=== PATIENT | female | born 1990 | race Caucasian/White ===

== ENCOUNTER 2023-08-21 09:44 | Inpatient (IN) | payer MEDICAID, SELFPAY ==
[2023-08-21] VITALS (9 sets, daily range): BP systolic 79–135; BP diastolic 46–66; PULSE 61–95; RESP 12–18; TEMP 36.7–36.9; O2SAT 96–100; BMI 18.4
--- NOTE | ~2023-08-21 | US_ITS ---
EXAMINATION: US RETROPERITONEAL LIMITED (RENAL ONLY) CLINICAL INFORMATION: Acute kidney injury. COMPARISON: None available. TECHNIQUE: Real-time imaging of the kidneys. FINDINGS: RIGHT KIDNEY: 10.3 x 4.9 x 5.6 cm (SAG x AP x TRV). The kidney is normal in size, contour, and echogenicity. Renal cortical thickness is normal. No calculi or focal parenchymal lesions. No hydronephrosis. LEFT KIDNEY: 10.4 x 5.9 x 4.9 cm (SAG x AP x TRV). The kidney is normal in size, contour, and echogenicity. Renal cortical thickness is normal. No calculi or focal parenchymal lesions. No hydronephrosis. US/US renal BI IMPRESSION: Unremarkable renal ultrasound..
--- NOTE | ~2023-08-21 | CT_ITS ---
EXAMINATION: CT HEAD AND FACIAL BONES WITHOUT CONTRAST CLINICAL INFORMATION: Fall head injury COMPARISON: None TECHNIQUE: Contiguous axial imaging was performed from the skull base to vertex and facial bones without intravenous administration of contrast. This CT examination was performed using dose optimization techniques as appropriate, variously including the following: *Automated exposure control *Adjustment of mA and/or kV according to patient size (this includes techniques or standardized protocols for targeted exams where dose is matched to indication/reason for exam; i.e. extremities or head) *Use of iterative reconstruction technique DLP: 573 mGy-cm (CT Head) 245 mGy-cm (CT Facial Bones) FINDINGS: There is no evidence of acute intracranial hemorrhage or territorial infarction. No abnormal mass effect or midline shift is seen. Sena to white matter differentiation is well preserved. No extra-axial fluid collections are identified. The ventricles are normal in size. There is no abnormal attenuation within the brain parenchyma.. The osseous structures and soft tissues are normal. The paranasal sinuses are well-aerated. No air-fluid levels are seen. There is slight leftward deviation of the nasal septum. The ostiomeatal complexes are clear. The lamina papyracea are intact. The ethmoid roofs are symmetric. No maxillary periapical disease is seen. The mastoid air cells and visualized middle ear cavities are well-aerated. The orbits are normal. The TMJs are unremarkable. CT/CT cervical spine wo IV con IMPRESSION: No acute intracranial pathology. No acute visible fracture or dislocation. EXAMINATION: Noncontrast CT scan of the cervical spine. INDICATION: Fall neck pain COMPARISON: None. TECHNIQUE: Helical, multidetector axial images were obtained from the occiput to the upper thorax. Coronal and sagittal reformats of the cervical spine were provided for interpretation. DLP: 264 mGy-cm FINDINGS: Patient motion artifact slightly limits evaluation. No acute fractures or dislocations of the cervical spine are seen. Straightening with slight reversal and normal cervical curvature. Anatomic alignment and positioning of the vertebral bodies and posterior elements is noted. The atlantoaxial joint and craniovertebral articulations are normal without evidence of subluxation. There is no prevertebral soft tissue swelling. Emphysematous changes of the visualized lung servin. Mild thickening of the upper esophagus. Visualized portions of the thyroid are unremarkable. IMPRESSION: 1. Patient motion artifact slightly limits evaluation. 2. No acute visible fracture or dislocation. 3. Straightening with slight reversal of normal cervical curvature. 4. Mild thickening of the upper esophagus.
--- NOTE | ~2023-08-21 | XR_ITS ---
EXAMINATION: XR CHEST CLINICAL INFORMATION: Syncope. COMPARISON: None available. TECHNIQUE: Frontal view of the chest was obtained. FINDINGS: The lungs are clear. The cardiomediastinal silhouette is normal in size. There is no pleural effusion or pneumothorax. No acute osseous abnormality. XR/XR chest 1V IMPRESSION: No acute cardiopulmonary findings.
--- NOTE | 2023-08-21 10:11 | PC.NURSE ---
Pt presents to ED from [facility] on Sect 03/25. EMS called due to syncopal episode. Pt reports she was waiting in line for breakfast this morning when she felt dizzy and her head go fuzzy , reports she blacked out, hit her head on counter and then fell to ground. Hypotensive and nauseous or EMS, EMS treated with 350 mL NS and 4 mg of zofran, IV in left AC 22G. Pt is alert and oriented, breathing even and unlabored, skin pale. Pt noted to be hypotensive. Reports left sided head and face pain, 6/10, aching where she hit her head on counter. Small lac noted next to pts left eye. Pt also reports symptoms of nausea, general weakness, dizziness and constipation.
--- NOTE | 2023-08-21 10:12 | ECG_ITS ---
Test Reason : syncopal Blood Pressure : / mmHG Vent. Rate : 071 BPM Atrial Rate : 071 BPM P-R Int : 160 ms QRS Dur : 070 ms QT Int : 552 ms P-R-T Axes : 050 093 074 degrees QTc Int : 599 ms Normal sinus rhythm Rightward axis Prolonged QT Abnormal ECG No previous ECGs available Referred By: Waqar Leonard Electronically Signed By:EDISON REES MD
--- NOTE | 2023-08-21 10:19 | ED.SYNCOPE ---
HPI - Syncope General Chief Complaint: Syncope Stated Complaint: SYNCOPE,HIT HEAD,LOW BP 80/50,FROM [facility] Time Seen by Provider: 08/21/23 10:12 Source: patient and EMS Mode of arrival: EMS Limitations: no limitations History of Present Illness HPI narrative: 32-year-old female brought in by ambulance from [facility] after patient sustained 1 syncopal episode at the hospital, patient was ordering breakfast did not feel any chest pain or shortness of breath or dizziness or presyncopal symptoms when she lost consciousness and fell down on the ground hitting her head and face, patient declined any bleeding from anywhere, has been eating and drinking okay. Patient declined any chance of being not sexually active. No sick contacts, no exposure to bad foods, no diarrhea, no vaginal discharge or bleed, no recent drinking alcohol or using drugs. Last alcohol drink was 9 days ago, patient does not have symptoms of withdrawal at this moment. No seizure activity was reported. Patient take Cogentin, Haldol, Wellbutrin. Patient has history of eating disorder and anorexia nervosa patient last time induce vomiting to herself with 3 days ago but patient eats small amounts any way. Related Data Allergies Allergy/AdvReac Type Severity Reaction Status Date / Time bee pollen [bee stings] Allergy Anaphylaxis Verified 08/21/23 10:05 Review of Systems Review of Systems: All other systems are reviewed and are negative Constitutional: Reports as per HPI and Reports no additional constitutional complaints Eyes: Reports as per HPI and Reports no additional eye complaints Reports system reviewed and no additional complaints, except as documented Cardiovascular: Reports as per HPI and Reports no additional cardiovascular complaints Respiratory: Reports as per HPI and Reports no additional respiratory complaints Gastrointestinal: Reports as per HPI and Reports no additional gastrointestinal complaints Genitourinary: Reports no additional female genitourinary complaints Musculoskeletal: Reports no additional musculoskeletal complaints Skin/Breast: Reports system reviewed and no additional complaints, except as docu Psychiatric: Reports no additional psychiatric complaints Endocrine: Reports no additional endocrine complaints Hematologic/Lymphatic: Reports no additional hematologic/lymphatic complaints Allergic/Immunologic: Reports no additional allergic/immunologic complaints Reports system reviewed and no additional complaints, except as documented and Reports Abnormal speech present PMFSH Social History Social History Smoked in Last 30 Days: No Use of substances other than those prescribed or required for medical reasons: No Advance Directives: No Advance Directives Information Provided: No Do you have a plan to hurt others: No Plan Physical Exam Vital Signs: Vital Signs: Last Vital Signs Temp 98.4 F 08/21/23 10:06 Pulse 68 08/21/23 15:18 Resp 18 08/21/23 15:18 BP 96/66 08/21/23 15:18 Pulse Ox 100 08/21/23 15:18 O2 Del Method Room Air 08/21/23 15:18 BMI result Body Mass Index 18.4 Vital signs have been reviewed and appear to be correct. Blood pressure elevated. Heart rate normal. Respiratory rate normal. Temperature normal. Oxygen saturation normal. Appearance: Alert. Oriented X3. No acute distress. Head: Normal external exam. Normocephalic. Atraumatic. No Tapia signs noted. No raccoon eyes noted Eyes: PERRLA. EOMI. Conjunctiva and sclera normal. Eyelids normal. ENT: TM's Normal. Pharynx normal. Uvula midline. Dry mucous membranes. No trismus noted. No drooling noted. No muffled voice noted. Neck: Normal inspection. Neck supple. FROM. No adenopathy. Thyroid Normal. No meningeal signs. No neck mass noted. CVS: Normal heart rate and rhythm. Heart sound normal. No murmurs noted. Pulses normal throughout. Respiratory: No respiratory distress. Painless inspiration. Breath sounds normal. No wheezes/rales/rhonchi noted. Chest nontender. No accessory muscle usage noted or decreased air movement noted. Abdomen: Soft and nontender. Bowel sounds normal in all 4 quadrants. No distention noted. No organomegaly noted. No visible injury noted. Back: No CVA tenderness. Full range of motion noted. Skin: Skin warm and dry. Normal skin color. Normal skin turgor. No rashes/lesions/lacerations noted. Extremities: No lower extremity edema. Extremities exhibit normal range of motion. Extremities nontender. Neuro: Oriented X 3. Cranial nerve exam: II-XII are grossly intact No motor deficit. No sensory deficit. Reflexes normal. Course Reevaluation(s) Reevaluation #1: 32-year-old female from [facility] for alcohol detox brought in by EMS after had syncopal episode and found to be hypotensive patient with history of anorexia nervosa, labs revealed hyponatremia, hypokalemia, MANINDER. EKG is revealing significant prolongation of QTC. IV hydration with low correction of hyponatremia. Hypokalemia will be repleted orally and 10 mEq IV. Maninder Time: 14:59 Medications Administered Discontinued Medications Generic Name Dose Route Start Last Admin Trade Name Freq PRN Reason Stop Dose Admin Sodium Chloride 1,000 mls @ 999 mls/hr 08/21/23 10:12 08/21/23 11:52 Ns IV 08/21/23 11:12 Infused .Q1H1M ONE Infusion Magnesium Sulfate 2 gm in 50 mls @ 25 mls/hr 08/21/23 10:33 08/21/23 13:38 Magnesium Sulfate/H2o IV 08/21/23 12:32 Infused ONCE ONE Infusion Potassium Chloride 10 meq in 100 mls @ 100 mls/hr 08/21/23 13:47 08/21/23 14:29 Potassium Chloride/H20 IV 08/21/23 14:46 100 mls/hr ONCE ONE Administration Potassium Chloride 40 meq 08/21/23 13:47 08/21/23 14:27 Potassium Chloride Packet 20 Meq Packet PO 08/21/23 13:48 40 meq ONCE ONE Administration Medical Decision Making Differential Diagnosis Differential Diagnoses: The differential diagnosis associated with the presentation includes (Dehydration, MANINDER, electrolyte derangement, abnormal EKG, orthostatic, anorexia nervosa, severe anemia, intracranial bleed, facial bone fracture, cervical spine fracture.) Admission/Observation Consideration of admission/observation: Escalation of care including admission/observation considered Consult Healthcare Provider Management of the patient was discussed with: Hospitalist (Dr. Montoya) Lab Data MDM Lab Attestation statement: I reviewed the patient's lab results. 08/21/23 13:59 08/21/23 13:04 Labs: Lab Results 08/21/23 08/21/23 08/21/23 Range/Units 13:04 13:04 13:59 WBC 6.7 (4.8-10.8) X10*3/uL RBC 3.88 L (4.20-5.50) X10*6/uL Hgb 11.2 L (12.0-16.0) g/dl Hct 30.5 L (37.0-47.0) % MCV 78.6 L (80.0-98.0) fL MCH 28.9 (27.0-33.0) pg MCHC 36.7 H (31.0-35.0) g/dl RDW 13.9 (11.0-16.0) % Plt Count TNP MPV TNP Immature Gran % (Auto) Cancelled Neut % (Auto) Cancelled Lymph % (Auto) Cancelled [place] % (Auto) Cancelled Eos % (Auto) Cancelled Baso % (Auto) Cancelled Lymph # (Auto) Cancelled [place] # (Auto) Cancelled Eos # (Auto) Cancelled Baso # (Auto) Cancelled Abs Immat Gran (auto) Cancelled Absolute Neuts (auto) Cancelled Absolute Nucleated RBC 0.030 H (0.0-0.012) X10*3/uL Nucleated RBC % (auto) 0.4 H (0.0-0.2) /100WBC Neutrophils % (Manual) 75 H (45-73) % Band Neutrophils % 5 (3-5) % Lymphocytes % (Manual) 12 L (20-40) % Monocytes % (Manual) 8 (2-11) % Abs Neuts (Manual) 5.4 (2.0-8.3) X10*3/uL Lymphocytes # (Manual) 0.8 L (1.2-4.9) X10*3/uL Monocytes # (Manual) 0.5 (0.1-1.2) X10*3/uL Toxic Vacuolation PRESENT Platelet Estimate TNP Plt Morphology Comment TNP RBC Morphology NOTED Hypochromasia 1+ (5-14) /OIF Sodium 127 L (135-145) mmol/L Potassium 2.1 L* (3.3-5.1) mmol/L Chloride 72 L (96-108) mmol/L Carbon Dioxide 36 H (22-29) mmol/L Anion Gap 21 H (12-20) BUN 20 H (9-16) mg/dL Creatinine 2.08 H (0.5-1.4) mg/dL Estim Creat Clear Calc 31.6 Estimated GFR 28 Random Glucose 101 (60-115) mg/dL Calcium 8.7 (8.4-10.2) mg/dL Magnesium 2.5 Cancelled (1.6-2.6) mg/dL Total Bilirubin 0.5 (0.0-1.0) mg/dL Direct Bilirubin 0.2 (0.0-0.5) mg/dL AST 22 (5-31) U/L ALT 6 (0-31) U/L Alkaline Phosphatase 78 (39-117) U/L Troponin I High Sens 3.4 (<3.5-17.0) ng/L Total Protein 6.1 L (6.5-8.0) g/dL Albumin 3.6 (3.5-5.0) g/dL Lipase 35 (8-78) U/L Urine Color Urine Appearance Urine pH (5.0-9.0) Ur Specific [place] (1.005-1.025) Urine Protein (Neg-Trace) mg/dL Urine Glucose (UA) (Negative) mg/dL Urine Ketones (Negative) mg/dL Urine Blood (Negative) Urine Nitrite (Negative) Ur Leukocyte Esterase (Negative) Urine Test (NEGATIVE) Influenza Type A (PCR) (Negative) Influenza Type B (PCR) (Negative) RSV RNA Qual (PCR) (Negative) SARS-CoV-2 RNA (RT-PCR) (Negative) 08/21/23 08/21/23 Range/Units 14:03 14:20 WBC (4.8-10.8) X10*3/uL RBC (4.20-5.50) X10*6/uL Hgb (12.0-16.0) g/dl Hct (37.0-47.0) % MCV (80.0-98.0) fL MCH (27.0-33.0) pg MCHC (31.0-35.0) g/dl RDW (11.0-16.0) % Plt Count MPV Immature Gran % (Auto) Neut % (Auto) Lymph % (Auto) [place] % (Auto) Eos % (Auto) Baso % (Auto) Lymph # (Auto) [place] # (Auto) Eos # (Auto) Baso # (Auto) Abs Immat Gran (auto) Absolute Neuts (auto) Absolute Nucleated RBC (0.0-0.012) X10*3/uL Nucleated RBC % (auto) (0.0-0.2) /100WBC Neutrophils % (Manual) (45-73) % Band Neutrophils % (3-5) % Lymphocytes % (Manual) (20-40) % Monocytes % (Manual) (2-11) % Abs Neuts (Manual) (2.0-8.3) X10*3/uL Lymphocytes # (Manual) (1.2-4.9) X10*3/uL Monocytes # (Manual) (0.1-1.2) X10*3/uL Toxic Vacuolation Platelet Estimate Plt Morphology Comment RBC Morphology Hypochromasia /OIF Sodium (135-145) mmol/L Potassium (3.3-5.1) mmol/L Chloride (96-108) mmol/L Carbon Dioxide (22-29) mmol/L Anion Gap (12-20) BUN (9-16) mg/dL Creatinine (0.5-1.4) mg/dL Estim Creat Clear Calc Estimated GFR Random Glucose (60-115) mg/dL Calcium (8.4-10.2) mg/dL Magnesium (1.6-2.6) mg/dL Total Bilirubin (0.0-1.0) mg/dL Direct Bilirubin (0.0-0.5) mg/dL AST (5-31) U/L ALT (0-31) U/L Alkaline Phosphatase (39-117) U/L Troponin I High Sens (<3.5-17.0) ng/L Total Protein (6.5-8.0) g/dL Albumin (3.5-5.0) g/dL Lipase (8-78) U/L Urine Color Yellow Urine Appearance Clear Urine pH 8.5 (5.0-9.0) Ur Specific [place] <= 1.005 (1.005-1.025) Urine Protein Negative (Neg-Trace) mg/dL Urine Glucose (UA) Negative (Negative) mg/dL Urine Ketones Negative (Negative) mg/dL Urine Blood Negative (Negative) Urine Nitrite Negative (Negative) Ur Leukocyte Esterase Negative (Negative) Urine Test NEGATIVE (NEGATIVE) Influenza Type A (PCR) NEGATIVE (Negative) Influenza Type B (PCR) NEGATIVE (Negative) RSV RNA Qual (PCR) NEGATIVE (Negative) SARS-CoV-2 RNA (RT-PCR) NEGATIVE (Negative) Independent Interpretation I performed an independent interpretation of an: EKG (Normal sinus rhythm at 71 beats per minute, prolonged QT otherwise unremarkable intervals, no ST-T changes, no old EKG to compare.), Plain X-Ray (No acute intrathoracic pathology.) and CT Scan (Head/facial/cervical spine CT: No acute pathology.) Radiology Impression Discussion of test interpretation with radiology: I have reviewed the radiologist's reading. Chronic Conditions Patient?s care impacted by: Other (Anorexia nervosa) Critical Care Time Critical Care Time Critical Care Time: Yes Total Critical Care Time: 60 Attestation: The patient was critically ill with a high probability of imminent or life-threatening deterioration. I spent greater than 30 minutes of discontinuous time evaluating the patient, delivering critical care at the bedside, discussing evaluating data with consultants. Critical care time does not include time spent performing separately billable procedures or teaching. Time spent performing critical care was 60 minutes. Discharge Plan Discharge Clinical Impression: MANINDER (acute kidney injury), Hyponatremia, Hypokalemia, Acute dehydration, Prolonged QT interval, Hypotension Patient Disposition: Admitted As Inpatient Print Language: Slovak
--- NOTE | 2023-08-21 10:24 | PC.NURSE ---
Pt denies any SI or HI. Is at [facility] for alcohol withdrawals. Drinks daily, 12-14 nips, last drink . No hx of seizures, feels her withdrawals are being well controlled at [facility]. CIWA done and is 4. Denies any CP or SOB.
[2023-08-21] MEDS: 0.9 % Sodium Chloride 1,000 ML 999 ML IV (10:30)
[2023-08-21] MEDS: Magnesium Sulfate/H2O 2 GM/50 ML PIGGYBACK IV (11:12)
[2023-08-21 13:33] LABS: Troponin-I High Sensitivity 3.4 ng/L (<3.5-17.0)
[2023-08-21 13:47] LABS: Alanine Aminotransferase 6 U/L (0-31); Albumin Level 3.6 g/dL (3.5-5.0); Alkaline Phosphatase 78 U/L (39-117); Anion Gap 21 (12-20); Aspartate Amino Transferase 22 U/L (5-31); Bilirubin Direct 0.2 mg/dL (0.0-0.5); Bilirubin Total 0.5 mg/dL (0.0-1.0); Blood Urea Nitrogen 20 mg/dL (9-16); Calcium 8.7 mg/dL (8.4-10.2); Carbon Dioxide 36 mmol/L (22-29); Chloride 72 mmol/L (96-108); Creatinine Clr Calc Pharmacy 31.6; Estimated Glomerular Filt Rate 28; Glucose Random 101 mg/dL (60-115); Lipase 35 U/L (8-78); Magnesium 2.5 mg/dL (1.6-2.6); Potassium 2.1 mmol/L (3.3-5.1); Sodium 127 mmol/L (135-145); Total Protein 6.1 g/dL (6.5-8.0)
[2023-08-21 14:10] LABS: Hematocrit 30.5 % (37.0-47.0); Hemoglobin 11.2 g/dl (12.0-16.0); Mean Corpuscular HGB Conc 36.7 g/dl (31.0-35.0); Mean Corpuscular Hemoglobin 28.9 pg (27.0-33.0); Mean Corpuscular Volume 78.6 fL (80.0-98.0); NRBC Pct Auto 0.4 /100WBC (0.0-0.2); PLT CLUMP 1; Red Blood Count 3.88 X10*6/uL (4.20-5.50); Red Cell Distribution Width 13.9 % (11.0-16.0)
[2023-08-21] MEDS: Potassium Chloride Packet 20 MEQ PACKET 40 MEQ PO ×2 (14:27→17:59)
[2023-08-21 14:28] LABS: Appearance Urine Clear; Color Urine Yellow; Glucose Urine UA Negative (Negative); Leukocyte Esterase Urine Negative (Negative); Nitrite Urine Negative (Negative); PH 8.5 (5.0-9.0); Specific Gravity - Urine <= 1.005 (1.005-1.025); Urine Blood Negative (Negative); Urine Ketones Negative (Negative); Urine Protein Negative (Neg-Trace)
[2023-08-21 14:29] LABS: UPreg QC Valid YES; Urine Pregnancy NEGATIVE (NEGATIVE)
[2023-08-21] MEDS: Potassium Chloride/H20 10 MEQ/100 ML PIGGYBACK 100 MEQ IV (14:29)
[2023-08-21 14:48] LABS: Band Neutrophils Percent 5 % (3-5); Hypochromasia 1+ (5-14) /OIF; Lymphocytes Percent Manual 12 % (20-40); Monocytes Percent Manual 8 % (2-11); Neutrophils Percent Manual 75 % (45-73); RBC Morphology NOTED; Toxic Vacuolation PRESENT
[2023-08-21 14:49] LABS: Lymphocytes Absolute Manual 0.8 X10*3/uL (1.2-4.9); Monocytes Absolute Manual 0.5 X10*3/uL (0.1-1.2); Neutrophils Absolute Manual 5.4 X10*3/uL (2.0-8.3); White Blood Count 6.7 X10*3/uL (4.8-10.8)
[2023-08-21 14:50] LABS: Influenza A PCR NEGATIVE (Negative); Influenza B PCR NEGATIVE (Negative); Resp Syncy Virus RNA Qual PCR NEGATIVE (Negative); SARS COV2 PCR INHOUSE NEGATIVE (Negative)
--- NOTE | 2023-08-21 15:53 | PM.IMHP ---
History of Present Illness Date of Service: 08/21/23 <TIM Hernandez - Last Filed: 08/21/23 17:24> Attending physician on admission: Renee Montoya <TIM Hernandez - Last Filed: 08/21/23 17:24> Chief Complaint: Syncopal episode <TIM Hernandez - Last Filed: 08/21/23 17:24> Pt is a 32-year-old female with a PMH significant for?anorexia nervosa alcoholic use disorder who presents to the ED from [facility] after experiencing a syncopal episode. Patient was ordering breakfast when she felt lightheaded, dizzy, and had syncopal episode, hitting her head on the counter. Reports brief 1-2 minutes of loss of consciousness. States she has been having lightheadedness and dizziness often in the mornings for the past 2-3 days. Has been eating and drinking less than normal, though has been trying to force herself to eat. Patient has long history of heavy alcohol use, reports was drinking nonstop without eating up until last when she was admitted to [facility]. Denies chest pain/pressure, palpitations. No fever, chills. Did have 1 episode of nausea and vomiting in the ambulance. Complains of mild headache and back stiffness. Patient reports has experienced abdominal pain for the past month, that has been diagnosed as alcoholic gastritis. Had similar syncopal episode about a year ago. ? In the ED pt was hypotensive as low as 79/50, and had elevated. Labs were significant for sodium 127, potassium 2.1, chloride 72, bicarb 36, BUN 20, and creatinine 2.08. UA negative for UTI. Test negative for flu, RSV, COVID. CXR showed no acute cardiopulmonary findings. CT of head, face, and cervical spine negative for acute visible fracture or dislocation, though did show mild thickening of upper esophagus. EKG demonstrated normal sinus prolonged QTc of 590 with no evidence of ST elevations or depressions. Pt was treated with IVF, Mag sulfate, potassium 40 mEq p.o., and potassium chloride 10 mEq IV. Pt will be admitted to the hospital for treatment and further evaluation of syncopal episode, hypokalemia, and SERA in the setting of dehydration and reduced p.o. intake in a patient with anorexia nervosa. <TIM Hernandez - Last Filed: 08/21/23 17:24> Review of Systems Review of Systems: Syncopal episode Lightheadedness and dizziness Nausea and vomiting Headache Abdominal pain Denies chest pain/pressure, palpitations No shortness of breath <TIM Hernandez - Last Filed: 08/21/23 17:24> [facility] Social History: Social History Smoked in Last 30 Days: No Use of substances other than those prescribed or required for medical reasons: No Advance Directives: No Advance Directives Information Provided: No Do you have a plan to hurt others: No Plan <TIM Hernandez Last Filed: 08/21/23 17:24> Meds Allergies/Adverse reactions: Allergies Allergy/AdvReac Type Severity Reaction Status Date / Time bee pollen [bee stings] Allergy Anaphylaxis Verified 08/21/23 10:05 <TIM Hernandez Last Filed: 08/21/23 17:24> Physical Exam Vital Signs and Narrative: Vital Signs: Last Vital Signs Temp 98.4 F 08/21/23 10:06 Pulse 68 08/21/23 15:18 Resp 18 08/21/23 15:18 BP 96/66 08/21/23 15:18 Pulse Ox 100 08/21/23 15:18 O2 Del Method Room Air 08/21/23 15:18 BMI result Body Mass Index 18.4 <TIM Hernandez Last Filed: 08/21/23 17:24> Constitutional: Alert, in no acute distress. Mental Status: Oriented to person, place and time. Eyes: Pupils are equal, round, and reactive to light. Ear, Nose, and Throat: Oropharynx clear, mucous membranes moist. Ears and nose without deformities. Trachea midline. Respiratory: Clear to auscultation bilaterally. No wheezing, rales, or rhonchi. Cardiovascular: S1, S2 regular. No murmurs, rubs, or gallops. Gastrointestinal: Abdomen soft, non-tender, non-distended. Normal bowel sounds. Neurologic: Cranial nerves II-XII are grossly intact bilaterally. No focal neurological deficits. Moves all extremities spontaneously. Skin: Warm, dry. Extremities: No edema. Psychiatric: Normal mood and affect. <TIM Hernandez - Last Filed: 08/21/23 17:24> Results Labs CBC and Chem 7: 08/21/23 13:59 08/21/23 13:04 <TIM Hernandez - Last Filed: 08/21/23 17:24> Labs: Laboratory Results - last 24 hr 08/21/23 08/21/23 08/21/23 13:04 13:04 13:59 MCV 78.6 L MCH 28.9 MCHC 36.7 H RDW 13.9 Plt Count TNP MPV TNP Immature Gran % (Auto) Cancelled Neut % (Auto) Cancelled Lymph % (Auto) Cancelled Ness % (Auto) Cancelled Eos % (Auto) Cancelled Baso % (Auto) Cancelled Lymph # (Auto) Cancelled Ness # (Auto) Cancelled Eos # (Auto) Cancelled Baso # (Auto) Cancelled Abs Immat Gran (auto) Cancelled Absolute Neuts (auto) Cancelled Absolute Nucleated RBC 0.030 H Nucleated RBC % (auto) 0.4 H Neutrophils % (Manual) 75 H Band Neutrophils % 5 Lymphocytes % (Manual) 12 L Monocytes % (Manual) 8 Abs Neuts (Manual) 5.4 Lymphocytes # (Manual) 0.8 L Monocytes # (Manual) 0.5 Toxic Vacuolation PRESENT Platelet Estimate TNP Plt Morphology Comment TNP RBC Morphology NOTED Hypochromasia 1+ (5-14) Anion Gap 21 H Estim Creat Clear Calc 31.6 Estimated GFR 28 Random Glucose 101 Calcium 8.7 Magnesium 2.5 Cancelled Total Bilirubin 0.5 Direct Bilirubin 0.2 AST 22 ALT 6 Alkaline Phosphatase 78 Troponin I High Sens 3.4 Total Protein 6.1 L Albumin 3.6 Lipase 35 Urine Color Urine Appearance Urine pH Ur Specific [place] Urine Protein Urine Glucose (UA) Urine Ketones Urine Blood Urine Nitrite Ur Leukocyte Esterase Urine Test Influenza Type A (PCR) Influenza Type B (PCR) RSV RNA Qual (PCR) SARS-CoV-2 RNA (RT-PCR) 08/21/23 08/21/23 14:03 14:20 MCV MCH MCHC RDW Plt Count MPV Immature Gran % (Auto) Neut % (Auto) Lymph % (Auto) Ness % (Auto) Eos % (Auto) Baso % (Auto) Lymph # (Auto) Ness # (Auto) Eos # (Auto) Baso # (Auto) Abs Immat Gran (auto) Absolute Neuts (auto) Absolute Nucleated RBC Nucleated RBC % (auto) Neutrophils % (Manual) Band Neutrophils % Lymphocytes % (Manual) Monocytes % (Manual) Abs Neuts (Manual) Lymphocytes # (Manual) Monocytes # (Manual) Toxic Vacuolation Platelet Estimate Plt Morphology Comment RBC Morphology Hypochromasia Anion Gap Estim Creat Clear Calc Estimated GFR Random Glucose Calcium Magnesium Total Bilirubin Direct Bilirubin AST ALT Alkaline Phosphatase Troponin I High Sens Total Protein Albumin Lipase Urine Color Yellow Urine Appearance Clear Urine pH 8.5 Ur Specific [place] <= 1.005 Urine Protein Negative Urine Glucose (UA) Negative Urine Ketones Negative Urine Blood Negative Urine Nitrite Negative Ur Leukocyte Esterase Negative Urine Test NEGATIVE Influenza Type A (PCR) NEGATIVE Influenza Type B (PCR) NEGATIVE RSV RNA Qual (PCR) NEGATIVE SARS-CoV-2 RNA (RT-PCR) NEGATIVE <TIM Hernandez - Last Filed: 08/21/23 17:24> Imaging Radiologist's Impressions: Impressions Chest X-Ray 08/21/23 12:22 IMPRESSION: No acute cardiopulmonary findings. Cervical Spine CT 08/21/23 13:48 IMPRESSION: No acute intracranial pathology. No acute visible fracture or dislocation. EXAMINATION: Noncontrast CT scan of the cervical spine. INDICATION: Fall neck pain COMPARISON: None. TECHNIQUE: Helical, multidetector axial images were obtained from the occiput to the upper thorax. Coronal and sagittal reformats of the cervical spine were provided for interpretation. DLP: 264 mGy-cm FINDINGS: Patient motion artifact slightly limits evaluation. No acute fractures or dislocations of the cervical spine are seen. Straightening with slight reversal and normal cervical curvature. Anatomic alignment and positioning of the vertebral bodies and posterior elements is noted. The atlantoaxial joint and craniovertebral articulations are normal without evidence of subluxation. There is no prevertebral soft tissue swelling. Emphysematous changes of the visualized lung servin. Mild thickening of the upper esophagus. Visualized portions of the thyroid are unremarkable. IMPRESSION: 1. Patient motion artifact slightly limits evaluation. 2. No acute visible fracture or dislocation. 3. Straightening with slight reversal of normal cervical curvature. 4. Mild thickening of the upper esophagus. Face CT 08/21/23 13:48 IMPRESSION: No acute intracranial pathology. No acute visible fracture or dislocation. EXAMINATION: Noncontrast CT scan of the cervical spine. INDICATION: Fall neck pain COMPARISON: None. TECHNIQUE: Helical, multidetector axial images were obtained from the occiput to the upper thorax. Coronal and sagittal reformats of the cervical spine were provided for interpretation. DLP: 264 mGy-cm FINDINGS: Patient motion artifact slightly limits evaluation. No acute fractures or dislocations of the cervical spine are seen. Straightening with slight reversal and normal cervical curvature. Anatomic alignment and positioning of the vertebral bodies and posterior elements is noted. The atlantoaxial joint and craniovertebral articulations are normal without evidence of subluxation. There is no prevertebral soft tissue swelling. Emphysematous changes of the visualized lung servin. Mild thickening of the upper esophagus. Visualized portions of the thyroid are unremarkable. IMPRESSION: 1. Patient motion artifact slightly limits evaluation. 2. No acute visible fracture or dislocation. 3. Straightening with slight reversal of normal cervical curvature. 4. Mild thickening of the upper esophagus. Head CT 08/21/23 13:48 IMPRESSION: No acute intracranial pathology. No acute visible fracture or dislocation. EXAMINATION: Noncontrast CT scan of the cervical spine. INDICATION: Fall neck pain COMPARISON: None. TECHNIQUE: Helical, multidetector axial images were obtained from the occiput to the upper thorax. Coronal and sagittal reformats of the cervical spine were provided for interpretation. DLP: 264 mGy-cm FINDINGS: Patient motion artifact slightly limits evaluation. No acute fractures or dislocations of the cervical spine are seen. Straightening with slight reversal and normal cervical curvature. Anatomic alignment and positioning of the vertebral bodies and posterior elements is noted. The atlantoaxial joint and craniovertebral articulations are normal without evidence of subluxation. There is no prevertebral soft tissue swelling. Emphysematous changes of the visualized lung servin. Mild thickening of the upper esophagus. Visualized portions of the thyroid are unremarkable. IMPRESSION: 1. Patient motion artifact slightly limits evaluation. 2. No acute visible fracture or dislocation. 3. Straightening with slight reversal of normal cervical curvature. 4. Mild thickening of the upper esophagus. <TIM Hernandez - Last Filed: 08/21/23 17:24> Assessment and Plan (1) Anorexia nervosa: Status: Acute <TIM Hernandez - Last Filed: 08/21/23 17:24> (2) Acute dehydration: Status: Acute <TIM Hernandez - Last Filed: 08/21/23 17:24> (3) SERA (acute kidney injury): Status: Acute <TIM Hernandez - Last Filed: 08/21/23 17:24> (4) Hypokalemia: Status: Acute <TIM Hernandez - Last Filed: 08/21/23 17:24> Pt is a 32-year-old female with a PMH significant for?anorexia nervosa alcoholic use disorder who presents to the ED from [facility] after experiencing a syncopal episode. Pt will be admitted to the hospital for treatment and further evaluation of syncopal episode, hypokalemia, and SERA in the setting of dehydration and reduced p.o. intake in a patient with anorexia nervosa. Syncopal episode Patient was syncopal episode with head strike this morning prior to breakfast Secondary to hypotension from dehydration in the setting of reduced p.o. intake Patient's BP as low as 79/50 in the ED Patient received IVF in the ED and we placed on maintenance fluids Imaging of head, face, cervical spine negative for acute fractures or subluxation Monitor BP Hypokalemia Potassium 2.1 at time of presentation Likely secondary to anorexia nervosa, reduced p.o. intake Patient received potassium 40 mEq p.o. and 10 mEq IV in ED Will give an additional 40 mEq p.o. Follow BMP, supplement as necessary Monitor on telemetry Hyponatremia Sodium 127 at time of presentation Likely secondary to anorexia nervosa, reduced p.o. intake Patient received IVF in the ED, placed on maintenance fluids Follow BMP SERA Creatinine 2.08 Secondary to dehydration from reduced p.o. intake Patient received IVF in the ED Will be placed on maintenance fluids Follow BMP Prolonged QTc EKG showing normal sinus rhythm with prolonged QTc of 599 Likely secondary to hypokalemia Repeat EKG in the morning Monitor on telemetry Anorexia nervosa Patient presented to ED from [facility] Psychiatry consult Full Code Attending:Vicente Montoya DVT Prophylaxis: Lovenox Pt will require a hospitalization of at least two nights for treatment of?hypokalemia and SERA in the setting of anorexia and reduced p.o. intake. Given severity of patient's electrolyte abnormalities, she will require hospitalization for administration potassium supplementation, IVF, close monitoring of labs and cardiac function, and electrolyte supplementation as indicated. <TIM Hernandez - Last Filed: 08/21/23 17:24> Pt is a 32-year-old female with a PMH significant for?anorexia nervosa alcoholic use disorder who presents to the ED from [facility] after experiencing a syncopal episode. Pt will be admitted to the hospital for treatment and further evaluation of syncopal episode, hypokalemia, and SERA in the setting of dehydration and reduced p.o. intake in a patient with anorexia nervosa. Syncopal episode Patient was syncopal episode with head strike this morning prior to breakfast Secondary to hypotension from dehydration in the setting of reduced p.o. intake Patient's BP as low as 79/50 in the ED Patient received IVF in the ED and we placed on maintenance fluids Imaging of head, face, cervical spine negative for acute fractures or subluxation Monitor BP acute Hypokalemia Potassium 2.1 at time of presentation Likely secondary to anorexia nervosa, reduced p.o. intake Patient received potassium 40 mEq p.o. and 10 mEq IV in ED Will give an additional 40 mEq p.o. Follow BMP, supplement as necessary Monitor on telemetry Hyponatremia-duration unclear Sodium 127 at time of presentation Likely secondary to anorexia nervosa, reduced p.o. intake Patient received IVF in the ED, placed on maintenance fluids Follow BMP SERA Creatinine 2.08 Secondary to dehydration from reduced p.o. intake Patient received IVF in the ED Will be placed on maintenance fluids Follow BMP Prolonged QTc EKG showing normal sinus rhythm with prolonged QTc of 599 Likely secondary to hypokalemia Repeat EKG in the morning Monitor on telemetry Anorexia nervosa Patient presented to ED from [facility] Psychiatry consult Full Code Attending:?Dr. Montoya DVT Prophylaxis: Lovenox Pt will require a hospitalization of at least two nights for treatment of?hypokalemia and SERA in the setting of anorexia and reduced p.o. intake. Given severity of patient's electrolyte abnormalities, she will require hospitalization for administration potassium supplementation, IVF, close monitoring of labs and cardiac function, and electrolyte supplementation as indicated. <Renee Montoya MD - Last Filed: 08/21/23 17:50> Quality Stroke Does the patient have a stroke diagnosis?: No <TIM Hernandez - Last Filed: 08/21/23 17:24> VTE Prior VTE?: No <TIM Hernandez - Last Filed: 08/21/23 17:24> VTE Risk Level:: Medical - moderate - high <TIM Hernandez - Last Filed: 08/21/23 17:24> VTE Device Contraindication: Treatment Not Indicated <TIM Hernandez - Last Filed: 08/21/23 17:24> VTE Drug Contraindication: N/A - Med Ordered <TIM Hernandez - Last Filed: 08/21/23 17:24>
--- NOTE | 2023-08-21 18:00 | PHA.MEDREC ---
Pharmacy Consult ? Medication Reconciliation Pharmacy has completed the medication reconciliation. List from [facility].
[2023-08-21] MEDS: Enoxaparin Sodium 40 MG/0.4 ML SYRINGE SUBCUT (18:01)
--- NOTE | 2023-08-21 18:08 | PC.NURSE ---
Patient moved into ED2 as patient is to be admitted to med/tele needing classroom monitor.
[2023-08-21 18:12] LABS: Anion Gap 16 (12-20); Blood Urea Nitrogen 19 mg/dL (9-16); Calcium 8.7 mg/dL (8.4-10.2); Carbon Dioxide 39 mmol/L (22-29); Chloride 80 mmol/L (96-108); Creatinine Clr Calc Pharmacy 33.7; Estimated Glomerular Filt Rate 30; Glucose Random 97 mg/dL (60-115); Potassium 2.6 mmol/L (3.3-5.1); Sodium 132 mmol/L (135-145)
--- NOTE | 2023-08-21 18:36 | PC.NURSE ---
[facility] called to ask about patient status, informed them patient to be admitted to hosptial for SERA, hypoK, syncope.
[2023-08-21] MEDS: Sodium Chloride 0.45 % 1,000 ML 100 ML IVCONT (18:48)
[2023-08-21] MEDS: KCl 20 mEq in 0.45% Sod 20 MEQ/1,000 ML IV.SOLN 100 MEQ IVCONT (19:47)
[2023-08-21] MEDS: Potassium Chloride Packet 20 MEQ PACKET PO (19:51)
--- NOTE | 2023-08-21 20:11 | P.EN_ITS ---
Event Note Date of Service: 08/21/23 Event Note: Consulted for SERA with electrolyte abnormalities. Case reviewed. U/A bland. SERA due to tubular injury. Check Urine for cocaine. If UO doesn't pick pulling machine tender, needs USS of kidney. Has hypokalemia with metabolic alkalosis. Needs aggressive K replacement.No indication for renal replacement. Shall closely follow . Brandin Sanders MD
[2023-08-21] MEDS: Albumin Human 25 % 100 ML 133.33 ML IV ×2 (20:13→22:02)
[2023-08-21 20:32] LABS: Cocaine Screen Urine Not Detected (Not Detect)
--- NOTE | 2023-08-21 22:20 | PC.NURSE ---
Patient resting quietly on stretcher at this time, albumin/fluids running, patient's bp trending [id number]/50's-60's, patient c/o initial dizziness upon standing that quickly resolves, walks with steady gait to BR, awaiting bed assignment at this time.
[2023-08-21 22:53] LABS: Anion Gap 14 (12-20); Blood Urea Nitrogen 17 mg/dL (9-16); Calcium 8.8 mg/dL (8.4-10.2); Carbon Dioxide 42 mmol/L (22-29); Chloride 81 mmol/L (96-108); Creatinine Clr Calc Pharmacy 35.6; Estimated Glomerular Filt Rate 32; Glucose Random 99 mg/dL (60-115); Potassium 2.7 mmol/L (3.3-5.1); Sodium 134 mmol/L (135-145)
--- NOTE | 2023-08-21 22:55 | PC.NURSE ---
BMP redraw resulted, K still critical now 2.7, Bicarb 42, 0.45 NS @ 100/hr running, admitting provider made aware.
[2023-08-21] MEDS: Lactated Ringers 1,000 ML 999 ML IV (23:15)
[2023-08-21 23:22] LABS: Amphetamine Screen Urine Not Detected (Not Detect); Barbiturates, Urine Not Detected (Not Detect); Benzodiazepines Screen Urine POSITIVE (Not Detect); Buprenorphine Scr Not Detected (Not Detect); Cannabinoid Screen Urine Not Detected (Not Detect); Fentanyl, urine Not Detected (Not Detect); Methadone Screen, Urine Not Detected (Not Detect); Opiate Screen Urine Not Detected (Not Detect); Oxycodone Screen Urine Not Detected (Not Detect); Phencyclidine Screen Urine Not Detected (Not Detect)
--- NOTE | 2023-08-21 23:47 | MHC.EDTECH ---
This tech took over care of patient at 2300,hourly rounds and vitals completed,BP is low 91/55 RN made aware. Patient requested and given a turkey sandwich and a can of alfa larisa. call parada in reach
[2023-08-21] MEDS: Potassium Chloride ER 20 MEQ TAB.ER.PRT PO (23:59)
[2023-08-22] VITALS (11 sets, daily range): BP systolic 84–111; BP diastolic 47–80; PULSE 52–77; RESP 14–20; TEMP 36.1–36.8; O2SAT 96–100
--- NOTE | 2023-08-22 | ECG_ITS ---
Test Reason : PROLONGED QTC Blood Pressure : / mmHG Vent. Rate : 062 BPM Atrial Rate : 062 BPM P-R Int : 172 ms QRS Dur : 072 ms QT Int : 540 ms P-R-T Axes : 060 089 072 degrees QTc Int : 548 ms Normal sinus rhythm Prolonged QT Abnormal ECG When compared with ECG of 21-AUG-2023 10:28, No significant change was found Referred By: Renee Montoya Electronically Signed By:EDISON REES MD
[2023-08-22] MEDS: KCl 40 mEq in 5% Dex/0.9% Sod 40 MEQ/1,000 ML IV.SOLN 100 MEQ IVCONT ×2 (00:36→09:47)
--- NOTE | 2023-08-22 03:15 | PC.NURSE ---
Assumed care of pt.
--- NOTE | 2023-08-22 05:35 | MHC.EDTECH ---
Patient ambulated to the bathroom with a steady gait.
--- NOTE | 2023-08-22 07:04 | PC.NURSE ---
Resumed care of patient, she is currently sleeping, IVF running per order. Awaiting bed placement at this time
[2023-08-22] MEDS: Potassium Chloride ER 20 MEQ TAB.ER.PRT PO ×4 (07:32→20:02)
[2023-08-22 07:33] LABS: Anion Gap 15 (12-20); Blood Urea Nitrogen 14 mg/dL (9-16); Calcium 9.1 mg/dL (8.4-10.2); Carbon Dioxide 36 mmol/L (22-29); Chloride 89 mmol/L (96-108); Creatinine Clr Calc Pharmacy 41.7; Estimated Glomerular Filt Rate 38; Glucose Random 100 mg/dL (60-115); Magnesium 2.5 mg/dL (1.6-2.6); Potassium 2.6 mmol/L (3.3-5.1); Sodium 137 mmol/L (135-145)
--- NOTE | 2023-08-22 08:00 | ECG_ITS ---
Test Reason : LOW BP Blood Pressure : / mmHG Vent. Rate : 070 BPM Atrial Rate : 070 BPM P-R Int : 190 ms QRS Dur : 074 ms QT Int : 456 ms P-R-T Axes : 054 085 050 degrees QTc Int : 492 ms Normal sinus rhythm Prolonged QT Abnormal ECG When compared with ECG of 21-AUG-2023 16:44, QT has shortened Referred By: Renee Montoya Electronically Signed By:EDISON REES MD
[2023-08-22] MEDS: Albumin Human 25 % 100 ML IV ×3 (08:48→20:03)
[2023-08-22] MEDS: Potassium Chloride ER 20 MEQ TAB.ER.PRT 40 MEQ PO (08:49)
--- NOTE | 2023-08-22 08:59 | PC.NURSE ---
This RN resumed care of patient at 0700, provider alerted of patient morning BP and critical K, new orders placed, second IV obtained for new orders, pt remains a/o at this time, offers no complaints of SOB/CP/dizziness. Pt reports some stomach upset from potassium at this time.
--- NOTE | 2023-08-22 09:44 | P.PNPSI_ITS ---
Subjective Subjective Reason For Visit: Hypokalemia, sera, syncope Diagnostics Vital Signs (24Hr): Vital Signs - 24 hr 08/21/23 10:01 08/21/23 10:06 08/21/23 10:06 Temperature 98.4 F 98.4 F Pulse Rate 86 86 Respiratory Rate 18 18 Blood Pressure 79/50 L 79/50 L Pulse Oximetry 97 97 97 Oxygen Delivery Method Room Air Room Air 08/21/23 10:22 08/21/23 10:22 08/21/23 10:22 Temperature Pulse Rate 68 75 95 Respiratory Rate Blood Pressure 88/56 L 91/53 L 87/53 L Pulse Oximetry Oxygen Delivery Method 08/21/23 15:18 08/21/23 18:13 08/21/23 20:13 Temperature 98.2 F Pulse Rate 68 61 61 Respiratory Rate 18 16 12 Blood Pressure 96/66 86/52 L 91/57 L Pulse Oximetry 100 100 Oxygen Delivery Method Room Air Room Air 08/21/23 22:00 08/21/23 23:45 08/22/23 02:30 Temperature 98.1 F 98.0 F Pulse Rate 63 65 62 Respiratory Rate 15 16 16 Blood Pressure 88/46 L 91/55 L 93/54 L Pulse Oximetry 96 96 Oxygen Delivery Method Room Air Room Air 08/22/23 03:08 08/22/23 05:41 08/22/23 07:33 Temperature 98.2 F 98.0 F Pulse Rate 65 65 67 Respiratory Rate 16 16 18 Blood Pressure 87/57 L 88/47 L 87/51 L Pulse Oximetry 96 99 100 Oxygen Delivery Method Room Air Room Air Room Air 08/22/23 08:50 Temperature Pulse Rate 77 Respiratory Rate 16 Blood Pressure 93/63 Pulse Oximetry Oxygen Delivery Method BMI result Body Mass Index 18.4 Labs 08/21/23 13:59 08/22/23 06:14 Labs: Laboratory Results - last 48 hr 08/21/23 08/21/23 08/21/23 13:04 13:04 13:59 WBC 6.7 RBC 3.88 L Hgb 11.2 L Hct 30.5 L MCV 78.6 L MCH 28.9 MCHC 36.7 H RDW 13.9 Plt Count TNP MPV TNP Immature Gran % (Auto) Cancelled Neut % (Auto) Cancelled Lymph % (Auto) Cancelled Rock % (Auto) Cancelled Eos % (Auto) Cancelled Baso % (Auto) Cancelled Lymph # (Auto) Cancelled Rock # (Auto) Cancelled Eos # (Auto) Cancelled Baso # (Auto) Cancelled Abs Immat Gran (auto) Cancelled Absolute Neuts (auto) Cancelled Absolute Nucleated RBC 0.030 H Nucleated RBC % (auto) 0.4 H Neutrophils % (Manual) 75 H Band Neutrophils % 5 Lymphocytes % (Manual) 12 L Monocytes % (Manual) 8 Abs Neuts (Manual) 5.4 Lymphocytes # (Manual) 0.8 L Monocytes # (Manual) 0.5 Toxic Vacuolation PRESENT Platelet Estimate TNP Plt Morphology Comment TNP RBC Morphology NOTED Hypochromasia 1+ (5-14) Sodium 127 L Potassium 2.1 L* Chloride 72 L Carbon Dioxide 36 H Anion Gap 21 H BUN 20 H Creatinine 2.08 H Estim Creat Clear Calc 31.6 Estimated GFR 28 Random Glucose 101 Calcium 8.7 Phosphorus 4.0 Magnesium 2.5 Cancelled Total Bilirubin 0.5 Direct Bilirubin 0.2 AST 22 ALT 6 Alkaline Phosphatase 78 Troponin I High Sens 3.4 Total Protein 6.1 L Albumin 3.6 Lipase 35 Urine Color Urine Appearance Urine pH Ur Specific [place] Urine Protein Urine Glucose (UA) Urine Ketones Urine Blood Urine Nitrite Ur Leukocyte Esterase Urine Test Urine Opiates Screen Ur Buprenorphine Scrn Ur Oxycodone Screen Urine Methadone Screen Urine Fentanyl Screen Ur Barbiturates Screen Ur Phencyclidine Scrn Ur Amphetamines Screen U Benzodiazepines Scrn Urine Cocaine Screen U Marijuana (THC) Screen Influenza Type A (PCR) Influenza Type B (PCR) RSV RNA Qual (PCR) SARS-CoV-2 RNA (RT-PCR) 08/21/23 08/21/23 08/21/23 14:03 14:20 17:33 WBC RBC Hgb Hct MCV MCH MCHC RDW Plt Count MPV Immature Gran % (Auto) Neut % (Auto) Lymph % (Auto) Rock % (Auto) Eos % (Auto) Baso % (Auto) Lymph # (Auto) Rock # (Auto) Eos # (Auto) Baso # (Auto) Abs Immat Gran (auto) Absolute Neuts (auto) Absolute Nucleated RBC Nucleated RBC % (auto) Neutrophils % (Manual) Band Neutrophils % Lymphocytes % (Manual) Monocytes % (Manual) Abs Neuts (Manual) Lymphocytes # (Manual) Monocytes # (Manual) Toxic Vacuolation Platelet Estimate Plt Morphology Comment RBC Morphology Hypochromasia Sodium 132 L Potassium 2.6 L* D Chloride 80 L Carbon Dioxide 39 H Anion Gap 16 BUN 19 H Creatinine 1.95 H Estim Creat Clear Calc 33.7 Estimated GFR 30 Random Glucose 97 Calcium 8.7 Phosphorus Magnesium Total Bilirubin Direct Bilirubin AST ALT Alkaline Phosphatase Troponin I High Sens Total Protein Albumin Lipase Urine Color Yellow Urine Appearance Clear Urine pH 8.5 Ur Specific [place] <= 1.005 Urine Protein Negative Urine Glucose (UA) Negative Urine Ketones Negative Urine Blood Negative Urine Nitrite Negative Ur Leukocyte Esterase Negative Urine Test NEGATIVE Urine Opiates Screen Not Detected Ur Buprenorphine Scrn Not Detected Ur Oxycodone Screen Not Detected Urine Methadone Screen Not Detected Urine Fentanyl Screen Not Detected Ur Barbiturates Screen Not Detected Ur Phencyclidine Scrn Not Detected Ur Amphetamines Screen Not Detected U Benzodiazepines Scrn POSITIVE H Urine Cocaine Screen Not Detected U Marijuana (THC) Screen Not Detected Influenza Type A (PCR) NEGATIVE Influenza Type B (PCR) NEGATIVE RSV RNA Qual (PCR) NEGATIVE SARS-CoV-2 RNA (RT-PCR) NEGATIVE 08/21/23 08/22/23 08/22/23 22:23 06:01 06:14 WBC RBC Hgb Hct MCV MCH MCHC RDW Plt Count MPV Immature Gran % (Auto) Neut % (Auto) Lymph % (Auto) Rock % (Auto) Eos % (Auto) Baso % (Auto) Lymph # (Auto) Rock # (Auto) Eos # (Auto) Baso # (Auto) Abs Immat Gran (auto) Absolute Neuts (auto) Absolute Nucleated RBC Nucleated RBC % (auto) Neutrophils % (Manual) Band Neutrophils % Lymphocytes % (Manual) Monocytes % (Manual) Abs Neuts (Manual) Lymphocytes # (Manual) Monocytes # (Manual) Toxic Vacuolation Platelet Estimate Plt Morphology Comment RBC Morphology Hypochromasia Sodium 134 L Cancelled 137 Potassium 2.7 L* Cancelled 2.6 L* Chloride 81 L Cancelled 89 L Carbon Dioxide 42 H* Cancelled 36 H Anion Gap 14 Cancelled 15 BUN 17 H Cancelled 14 Creatinine 1.85 H Cancelled 1.58 H Estim Creat Clear Calc 35.6 Cancelled 41.7 Estimated GFR 32 Cancelled 38 Random Glucose 99 Cancelled 100 Calcium 8.8 Cancelled 9.1 Phosphorus Magnesium 2.5 Total Bilirubin Direct Bilirubin AST ALT Alkaline Phosphatase Troponin I High Sens Total Protein Albumin Lipase Urine Color Urine Appearance Urine pH Ur Specific [place] Urine Protein Urine Glucose (UA) Urine Ketones Urine Blood Urine Nitrite Ur Leukocyte Esterase Urine Test Urine Opiates Screen Ur Buprenorphine Scrn Ur Oxycodone Screen Urine Methadone Screen Urine Fentanyl Screen Ur Barbiturates Screen Ur Phencyclidine Scrn Ur Amphetamines Screen U Benzodiazepines Scrn Urine Cocaine Screen U Marijuana (THC) Screen Influenza Type A (PCR) Influenza Type B (PCR) RSV RNA Qual (PCR) SARS-CoV-2 RNA (RT-PCR) Imaging Radiology Impressions: ITS Impressions Chest X-Ray 08/21/23 12:22 IMPRESSION: No acute cardiopulmonary findings. Cervical Spine CT 08/21/23 13:48 IMPRESSION: No acute intracranial pathology. No acute visible fracture or dislocation. EXAMINATION: Noncontrast CT scan of the cervical spine. INDICATION: Fall neck pain COMPARISON: None. TECHNIQUE: Helical, multidetector axial images were obtained from the occiput to the upper thorax. Coronal and sagittal reformats of the cervical spine were provided for interpretation. DLP: 264 mGy-cm FINDINGS: Patient motion artifact slightly limits evaluation. No acute fractures or dislocations of the cervical spine are seen. Straightening with slight reversal and normal cervical curvature. Anatomic alignment and positioning of the vertebral bodies and posterior elements is noted. The atlantoaxial joint and craniovertebral articulations are normal without evidence of subluxation. There is no prevertebral soft tissue swelling. Emphysematous changes of the visualized lung servin. Mild thickening of the upper esophagus. Visualized portions of the thyroid are unremarkable. IMPRESSION: 1. Patient motion artifact slightly limits evaluation. 2. No acute visible fracture or dislocation. 3. Straightening with slight reversal of normal cervical curvature. 4. Mild thickening of the upper esophagus. Face CT 08/21/23 13:48 IMPRESSION: No acute intracranial pathology. No acute visible fracture or dislocation. EXAMINATION: Noncontrast CT scan of the cervical spine. INDICATION: Fall neck pain COMPARISON: None. TECHNIQUE: Helical, multidetector axial images were obtained from the occiput to the upper thorax. Coronal and sagittal reformats of the cervical spine were provided for interpretation. DLP: 264 mGy-cm FINDINGS: Patient motion artifact slightly limits evaluation. No acute fractures or dislocations of the cervical spine are seen. Straightening with slight reversal and normal cervical curvature. Anatomic alignment and positioning of the vertebral bodies and posterior elements is noted. The atlantoaxial joint and craniovertebral articulations are normal without evidence of subluxation. There is no prevertebral soft tissue swelling. Emphysematous changes of the visualized lung servin. Mild thickening of the upper esophagus. Visualized portions of the thyroid are unremarkable. IMPRESSION: 1. Patient motion artifact slightly limits evaluation. 2. No acute visible fracture or dislocation. 3. Straightening with slight reversal of normal cervical curvature. 4. Mild thickening of the upper esophagus. Head CT 08/21/23 13:48 IMPRESSION: No acute intracranial pathology. No acute visible fracture or dislocation. EXAMINATION: Noncontrast CT scan of the cervical spine. INDICATION: Fall neck pain COMPARISON: None. TECHNIQUE: Helical, multidetector axial images were obtained from the occiput to the upper thorax. Coronal and sagittal reformats of the cervical spine were provided for interpretation. DLP: 264 mGy-cm FINDINGS: Patient motion artifact slightly limits evaluation. No acute fractures or dislocations of the cervical spine are seen. Straightening with slight reversal and normal cervical curvature. Anatomic alignment and positioning of the vertebral bodies and posterior elements is noted. The atlantoaxial joint and craniovertebral articulations are normal without evidence of subluxation. There is no prevertebral soft tissue swelling. Emphysematous changes of the visualized lung servin. Mild thickening of the upper esophagus. Visualized portions of the thyroid are unremarkable. IMPRESSION: 1. Patient motion artifact slightly limits evaluation. 2. No acute visible fracture or dislocation. 3. Straightening with slight reversal of normal cervical curvature. 4. Mild thickening of the upper esophagus. Medications Medications Current Medications Acetaminophen (Acetaminophen 325 Mg Tablet) 650 mg PO Q6H PRN PRN Reason: Pain, Mild (Pain Scale 1-3) Al Hydroxide/Mg Hydroxide (Magnesium Hydrox/Alum Hydrox 30 Ml Oral.Susp) 30 ml PO BID PRN PRN Reason: GI Upset Benzonatate (Benzonatate 100 Mg Capsule) 100 mg PO TID PRN PRN Reason: Cough Docusate Sodium (Docusate Sodium 100 Mg Capsule) 100 mg PO DAILY PRN PRN Reason: Constipation Enoxaparin Sodium (Enoxaparin Sodium 40 Mg/0.4 Ml Syringe) 40 mg SUBCUT Q24H [facility] Last Admin: 08/21/23 18:01 Dose: 40 mg Potassium Chloride/Dextrose/Sod Cl (Kcl 40 Meq In 5% Dex/0.9% Sod) 40 meq in 1,000 mls @ 100 mls/hr IVCONT .Q10H [facility] Last Admin: 08/22/23 00:36 Dose: 100 mls/hr Albumin Human (Kedbumin 25 %) 100 mls @ 100 mls/hr IV Q6H [facility] Stop: 08/23/23 02:59 Last Admin: 08/22/23 08:48 Dose: 100 mls/hr Melatonin (Melatonin 3 Mg Tablet) 6 mg PO BEDTIME PRN PRN Reason: Insomnia Nicotine Polacrilex (Nicotine Polacrilex 2 Mg Gum) 2 mg BUCCAL Q2H PRN PRN Reason: Nicotine Cravings Potassium Chloride (Potassium Chloride Er 20 Meq Tab.Er.Prt) 20 meq PO TID [facility] Last Admin: 08/22/23 07:32 Dose: 20 meq Sodium Chloride (0.9 % Sodium Chloride Flush 3 Ml Syringe) 3 ml IVFLUSH QSHIFT [facility] Last Admin: 08/22/23 07:32 Dose: Not Given Allergies Allergies Allergy/AdvReac Type Severity Reaction Status Date / Time bee pollen [bee stings] Allergy Anaphylaxis Verified 08/21/23 10:05 Assessment & Plan Assessment & Plan (1) Anorexia nervosa: Status: Acute Code(s): F50.00 - Anorexia nervosa, unspecified (2) Acute dehydration: Status: Acute Code(s): E86.0 - Dehydration (3) SERA (acute kidney injury): Status: Acute Code(s): N17.9 - Acute kidney failure, unspecified (4) Hypokalemia: Status: Acute Code(s): E87.6 - Hypokalemia Plan Pt is a 32-year-old female with a PMH significant for?anorexia nervosa alcoholic use disorder who presents to the ED from [facility] after experiencing a syncopal episode. Pt will be admitted to the hospital for treatment and further evaluation of syncopal episode, hypokalemia, and SERA in the setting of dehydration and reduced p.o. intake in a patient with anorexia nervosa. Syncopal episode Patient was syncopal episode with head strike this morning prior to breakfast Secondary to hypotension from dehydration in the setting of reduced p.o. intake Patient's BP as low as 79/50 in the ED Patient received IVF in the ED and we placed on maintenance fluids Imaging of head, face, cervical spine negative for acute fractures or subluxation Monitor BP acute Hypokalemia Potassium 2.1 at time of presentation Likely secondary to anorexia nervosa, reduced p.o. intake Patient received potassium 40 mEq p.o. and 10 mEq IV in ED Will give an additional 40 mEq p.o. Follow BMP, supplement as necessary Monitor on telemetry Hyponatremia-duration unclear Sodium 127 at time of presentation Likely secondary to anorexia nervosa, reduced p.o. intake Patient received IVF in the ED, placed on maintenance fluids Follow BMP SERA Creatinine 2.08 Secondary to dehydration from reduced p.o. intake Patient received IVF in the ED Will be placed on maintenance fluids Follow BMP Prolonged QTc EKG showing normal sinus rhythm with prolonged QTc of 599 Likely secondary to hypokalemia Repeat EKG in the morning Monitor on telemetry Anorexia nervosa Patient presented to ED from [facility] Psychiatry consult Full Code Attending:?Dr. Montoya DVT Prophylaxis: Lovenox Pt will require a hospitalization of at least two nights for treatment of?hypokalemia and SERA in the setting of anorexia and reduced p.o. intake. Given severity of patient's electrolyte abnormalities, she will require hospitalization for administration potassium supplementation, IVF, close monitoring of labs and cardiac function, and electrolyte supplementation as indicated. Time Spent With Patient Time: Total time managing care of this patient today ____ minutes.
--- NOTE | 2023-08-22 09:48 | PM.PSYCN ---
History of Present Illness Date of Service: 08/22/2023 Chief Complaint: Hypokalemia, gema, syncope Reason for Consult: Psychiatric evaluation Requesting physician: Denita Cooley Discussed with referring provider: Yes Sources of Information: patient interviewed and chart reviewed HPI Narrative: Gabrielle is a 32-year-old white, single, unemployed woman who is back living with her mother. She was brought to the emergency room last night after a fall at [facility] where she was hospitalized for alcohol detoxification and has been in the process of being referred to [facility] in [facility] for eating disorder. She has a history of longstanding eating disorder, anorexia, purging. Her lowest weight has been in the low 90s and currently at 112-115. She was resumed on her psychotropics at [facility] which includes Wellbutrin-unknown dose, Haldol 5 mg b.i.d. and Cogentin-unknown dose. She has history of alcohol dependence/abuse, up to 12-18 nips a day. Her eating disorder has been since age 16. She currently sees a therapist on the phone and does not have any psychiatric treaters for her medications which she gets through her PCP. She does have history of hypomanic episodes, accompanied by classic symptoms and was given lithium but she did not take it because of having had kidney problems. Her laboratory studies indicative of this with elevated creatinine. She has had suicidal ideations and an attempt at age 17 but no active ideations currently. Past Psychiatric History: Inpatient and some outpatient treatment Medical Evaluation Reviewed: Yes (Reviewed) She has indications of kidney involvement and problems with elevated creatinine. Reported QTC prolonging however when corrected by Estevez's formula it is 473. Review of Systems Review of Systems Dizziness and syncope Yes all other systems are reviewed and are negative PMFSH Narrative: Renal insufficiency. Reported QTC prolongation, dizziness and syncope Family History: Bipolar disorder in a paternal uncle Social History: Gabrielle is 1 of 5 siblings. She has 3 sisters and 1 step brothers. Her parents got when she was 5 and she grew up with her mother. She denies any history of abuse growing up. She has a high school diploma and did some training for [employer] work. She recently moved in with her mother again. She has not working currently. Trauma History: None reported Diagnostics Vital Signs (24Hr): Vital Signs - 24 hr 08/21/23 10:01 08/21/23 10:06 08/21/23 10:06 Temperature 98.4 F 98.4 F Pulse Rate 86 86 Respiratory Rate 18 18 Blood Pressure 79/50 L 79/50 L Pulse Oximetry 97 97 97 Oxygen Delivery Method Room Air Room Air 08/21/23 10:22 08/21/23 10:22 08/21/23 10:22 Temperature Pulse Rate 68 75 95 Respiratory Rate Blood Pressure 88/56 L 91/53 L 87/53 L Pulse Oximetry Oxygen Delivery Method 08/21/23 15:18 08/21/23 18:13 08/21/23 20:13 Temperature 98.2 F Pulse Rate 68 61 61 Respiratory Rate 18 16 12 Blood Pressure 96/66 86/52 L 91/57 L Pulse Oximetry 100 100 Oxygen Delivery Method Room Air Room Air 08/21/23 22:00 08/21/23 23:45 08/22/23 02:30 Temperature 98.1 F 98.0 F Pulse Rate 63 65 62 Respiratory Rate 15 16 16 Blood Pressure 88/46 L 91/55 L 93/54 L Pulse Oximetry 96 96 Oxygen Delivery Method Room Air Room Air 08/22/23 03:08 08/22/23 05:41 08/22/23 07:33 Temperature 98.2 F 98.0 F Pulse Rate 65 65 67 Respiratory Rate 16 16 18 Blood Pressure 87/57 L 88/47 L 87/51 L Pulse Oximetry 96 99 100 Oxygen Delivery Method Room Air Room Air Room Air 08/22/23 08:50 Temperature Pulse Rate 77 Respiratory Rate 16 Blood Pressure 93/63 Pulse Oximetry Oxygen Delivery Method BMI result Body Mass Index 18.4 Labs 08/21/23 13:59 08/22/23 06:14 Labs: Laboratory Results - last 48 hr 08/21/23 08/21/23 08/21/23 13:04 13:04 13:59 WBC 6.7 RBC 3.88 L Hgb 11.2 L Hct 30.5 L MCV 78.6 L MCH 28.9 MCHC 36.7 H RDW 13.9 Plt Count TNP MPV TNP Immature Gran % (Auto) Cancelled Neut % (Auto) Cancelled Lymph % (Auto) Cancelled Benton % (Auto) Cancelled Eos % (Auto) Cancelled Baso % (Auto) Cancelled Lymph # (Auto) Cancelled Benton # (Auto) Cancelled Eos # (Auto) Cancelled Baso # (Auto) Cancelled Abs Immat Gran (auto) Cancelled Absolute Neuts (auto) Cancelled Absolute Nucleated RBC 0.030 H Nucleated RBC % (auto) 0.4 H Neutrophils % (Manual) 75 H Band Neutrophils % 5 Lymphocytes % (Manual) 12 L Monocytes % (Manual) 8 Abs Neuts (Manual) 5.4 Lymphocytes # (Manual) 0.8 L Monocytes # (Manual) 0.5 Toxic Vacuolation PRESENT Platelet Estimate TNP Plt Morphology Comment TNP RBC Morphology NOTED Hypochromasia 1+ (5-14) Sodium 127 L Potassium 2.1 L* Chloride 72 L Carbon Dioxide 36 H Anion Gap 21 H BUN 20 H Creatinine 2.08 H Estim Creat Clear Calc 31.6 Estimated GFR 28 Random Glucose 101 Calcium 8.7 Phosphorus 4.0 Magnesium 2.5 Cancelled Total Bilirubin 0.5 Direct Bilirubin 0.2 AST 22 ALT 6 Alkaline Phosphatase 78 Troponin I High Sens 3.4 Total Protein 6.1 L Albumin 3.6 Lipase 35 Urine Color Urine Appearance Urine pH Ur Specific Wellford Urine Protein Urine Glucose (UA) Urine Ketones Urine Blood Urine Nitrite Ur Leukocyte Esterase Urine Test Urine Opiates Screen Ur Buprenorphine Scrn Ur Oxycodone Screen Urine Methadone Screen Urine Fentanyl Screen Ur Barbiturates Screen Ur Phencyclidine Scrn Ur Amphetamines Screen U Benzodiazepines Scrn Urine Cocaine Screen U Marijuana (THC) Screen Influenza Type A (PCR) Influenza Type B (PCR) RSV RNA Qual (PCR) SARS-CoV-2 RNA (RT-PCR) 08/21/23 08/21/23 08/21/23 14:03 14:20 17:33 WBC RBC Hgb Hct MCV MCH MCHC RDW Plt Count MPV Immature Gran % (Auto) Neut % (Auto) Lymph % (Auto) Benton % (Auto) Eos % (Auto) Baso % (Auto) Lymph # (Auto) Benton # (Auto) Eos # (Auto) Baso # (Auto) Abs Immat Gran (auto) Absolute Neuts (auto) Absolute Nucleated RBC Nucleated RBC % (auto) Neutrophils % (Manual) Band Neutrophils % Lymphocytes % (Manual) Monocytes % (Manual) Abs Neuts (Manual) Lymphocytes # (Manual) Monocytes # (Manual) Toxic Vacuolation Platelet Estimate Plt Morphology Comment RBC Morphology Hypochromasia Sodium 132 L Potassium 2.6 L* D Chloride 80 L Carbon Dioxide 39 H Anion Gap 16 BUN 19 H Creatinine 1.95 H Estim Creat Clear Calc 33.7 Estimated GFR 30 Random Glucose 97 Calcium 8.7 Phosphorus Magnesium Total Bilirubin Direct Bilirubin AST ALT Alkaline Phosphatase Troponin I High Sens Total Protein Albumin Lipase Urine Color Yellow Urine Appearance Clear Urine pH 8.5 Ur Specific Wellford <= 1.005 Urine Protein Negative Urine Glucose (UA) Negative Urine Ketones Negative Urine Blood Negative Urine Nitrite Negative Ur Leukocyte Esterase Negative Urine Test NEGATIVE Urine Opiates Screen Not Detected Ur Buprenorphine Scrn Not Detected Ur Oxycodone Screen Not Detected Urine Methadone Screen Not Detected Urine Fentanyl Screen Not Detected Ur Barbiturates Screen Not Detected Ur Phencyclidine Scrn Not Detected Ur Amphetamines Screen Not Detected U Benzodiazepines Scrn POSITIVE H Urine Cocaine Screen Not Detected U Marijuana (THC) Screen Not Detected Influenza Type A (PCR) NEGATIVE Influenza Type B (PCR) NEGATIVE RSV RNA Qual (PCR) NEGATIVE SARS-CoV-2 RNA (RT-PCR) NEGATIVE 08/21/23 08/22/23 08/22/23 22:23 06:01 06:14 WBC RBC Hgb Hct MCV MCH MCHC RDW Plt Count MPV Immature Gran % (Auto) Neut % (Auto) Lymph % (Auto) Benton % (Auto) Eos % (Auto) Baso % (Auto) Lymph # (Auto) Benton # (Auto) Eos # (Auto) Baso # (Auto) Abs Immat Gran (auto) Absolute Neuts (auto) Absolute Nucleated RBC Nucleated RBC % (auto) Neutrophils % (Manual) Band Neutrophils % Lymphocytes % (Manual) Monocytes % (Manual) Abs Neuts (Manual) Lymphocytes # (Manual) Monocytes # (Manual) Toxic Vacuolation Platelet Estimate Plt Morphology Comment RBC Morphology Hypochromasia Sodium 134 L Cancelled 137 Potassium 2.7 L* Cancelled 2.6 L* Chloride 81 L Cancelled 89 L Carbon Dioxide 42 H* Cancelled 36 H Anion Gap 14 Cancelled 15 BUN 17 H Cancelled 14 Creatinine 1.85 H Cancelled 1.58 H Estim Creat Clear Calc 35.6 Cancelled 41.7 Estimated GFR 32 Cancelled 38 Random Glucose 99 Cancelled 100 Calcium 8.8 Cancelled 9.1 Phosphorus Magnesium 2.5 Total Bilirubin Direct Bilirubin AST ALT Alkaline Phosphatase Troponin I High Sens Total Protein Albumin Lipase Urine Color Urine Appearance Urine pH Ur Specific Wellford Urine Protein Urine Glucose (UA) Urine Ketones Urine Blood Urine Nitrite Ur Leukocyte Esterase Urine Test Urine Opiates Screen Ur Buprenorphine Scrn Ur Oxycodone Screen Urine Methadone Screen Urine Fentanyl Screen Ur Barbiturates Screen Ur Phencyclidine Scrn Ur Amphetamines Screen U Benzodiazepines Scrn Urine Cocaine Screen U Marijuana (THC) Screen Influenza Type A (PCR) Influenza Type B (PCR) RSV RNA Qual (PCR) SARS-CoV-2 RNA (RT-PCR) Imaging Radiology Impressions: ITS Impressions Chest X-Ray 08/21/23 12:22 IMPRESSION: No acute cardiopulmonary findings. Cervical Spine CT 08/21/23 13:48 IMPRESSION: No acute intracranial pathology. No acute visible fracture or dislocation. EXAMINATION: Noncontrast CT scan of the cervical spine. INDICATION: Fall neck pain COMPARISON: None. TECHNIQUE: Helical, multidetector axial images were obtained from the occiput to the upper thorax. Coronal and sagittal reformats of the cervical spine were provided for interpretation. DLP: 264 mGy-cm FINDINGS: Patient motion artifact slightly limits evaluation. No acute fractures or dislocations of the cervical spine are seen. Straightening with slight reversal and normal cervical curvature. Anatomic alignment and positioning of the vertebral bodies and posterior elements is noted. The atlantoaxial joint and craniovertebral articulations are normal without evidence of subluxation. There is no prevertebral soft tissue swelling. Emphysematous changes of the visualized lung servin. Mild thickening of the upper esophagus. Visualized portions of the thyroid are unremarkable. IMPRESSION: 1. Patient motion artifact slightly limits evaluation. 2. No acute visible fracture or dislocation. 3. Straightening with slight reversal of normal cervical curvature. 4. Mild thickening of the upper esophagus. Face CT 08/21/23 13:48 IMPRESSION: No acute intracranial pathology. No acute visible fracture or dislocation. EXAMINATION: Noncontrast CT scan of the cervical spine. INDICATION: Fall neck pain COMPARISON: None. TECHNIQUE: Helical, multidetector axial images were obtained from the occiput to the upper thorax. Coronal and sagittal reformats of the cervical spine were provided for interpretation. DLP: 264 mGy-cm FINDINGS: Patient motion artifact slightly limits evaluation. No acute fractures or dislocations of the cervical spine are seen. Straightening with slight reversal and normal cervical curvature. Anatomic alignment and positioning of the vertebral bodies and posterior elements is noted. The atlantoaxial joint and craniovertebral articulations are normal without evidence of subluxation. There is no prevertebral soft tissue swelling. Emphysematous changes of the visualized lung servin. Mild thickening of the upper esophagus. Visualized portions of the thyroid are unremarkable. IMPRESSION: 1. Patient motion artifact slightly limits evaluation. 2. No acute visible fracture or dislocation. 3. Straightening with slight reversal of normal cervical curvature. 4. Mild thickening of the upper esophagus. Head CT 08/21/23 13:48 IMPRESSION: No acute intracranial pathology. No acute visible fracture or dislocation. EXAMINATION: Noncontrast CT scan of the cervical spine. INDICATION: Fall neck pain COMPARISON: None. TECHNIQUE: Helical, multidetector axial images were obtained from the occiput to the upper thorax. Coronal and sagittal reformats of the cervical spine were provided for interpretation. DLP: 264 mGy-cm FINDINGS: Patient motion artifact slightly limits evaluation. No acute fractures or dislocations of the cervical spine are seen. Straightening with slight reversal and normal cervical curvature. Anatomic alignment and positioning of the vertebral bodies and posterior elements is noted. The atlantoaxial joint and craniovertebral articulations are normal without evidence of subluxation. There is no prevertebral soft tissue swelling. Emphysematous changes of the visualized lung servin. Mild thickening of the upper esophagus. Visualized portions of the thyroid are unremarkable. IMPRESSION: 1. Patient motion artifact slightly limits evaluation. 2. No acute visible fracture or dislocation. 3. Straightening with slight reversal of normal cervical curvature. 4. Mild thickening of the upper esophagus. Mental Status Exam Mental Status Exam Narrative: Gabrielle was seen in her room in the emergency room. She is alert, oriented and pleasant. Speech is normal. Good eye contact. Affect is appropriate and varied. No signs of psychosis. No signs of hypomania. Cognitively she is intact. She denies any SI. Judgment is intact. Medications Medications Current Medications Acetaminophen (Acetaminophen 325 Mg Tablet) 650 mg PO Q6H PRN PRN Reason: Pain, Mild (Pain Scale 1-3) Al Hydroxide/Mg Hydroxide (Magnesium Hydrox/Alum Hydrox 30 Ml Oral.Susp) 30 ml PO BID PRN PRN Reason: GI Upset Benzonatate (Benzonatate 100 Mg Capsule) 100 mg PO TID PRN PRN Reason: Cough Docusate Sodium (Docusate Sodium 100 Mg Capsule) 100 mg PO DAILY PRN PRN Reason: Constipation Enoxaparin Sodium (Enoxaparin Sodium 40 Mg/0.4 Ml Syringe) 40 mg SUBCUT Q24H [facility] Last Admin: 08/21/23 18:01 Dose: 40 mg Potassium Chloride/Dextrose/Sod Cl (Kcl 40 Meq In 5% Dex/0.9% Sod) 40 meq in 1,000 mls @ 100 mls/hr IVCONT .Q10H [facility] Last Admin: 08/22/23 09:47 Dose: 100 mls/hr Albumin Human (Kedbumin 25 %) 100 mls @ 100 mls/hr IV Q6H [facility] Stop: 08/23/23 02:59 Last Admin: 08/22/23 08:48 Dose: 100 mls/hr Melatonin (Melatonin 3 Mg Tablet) 6 mg PO BEDTIME PRN PRN Reason: Insomnia Nicotine Polacrilex (Nicotine Polacrilex 2 Mg Gum) 2 mg BUCCAL Q2H PRN PRN Reason: Nicotine Cravings Potassium Chloride (Potassium Chloride Er 20 Meq Tab.Er.Prt) 20 meq PO TID [facility] Last Admin: 08/22/23 07:32 Dose: 20 meq Sodium Chloride (0.9 % Sodium Chloride Flush 3 Ml Syringe) 3 ml IVFLUSH QSHIFT [facility] Last Admin: 08/22/23 07:32 Dose: Not Given Allergies Allergies Allergy/AdvReac Type Severity Reaction Status Date / Time bee pollen [bee stings] Allergy Anaphylaxis Verified 08/21/23 10:05 Assessment & Plan Assessment & Plan (1) Anorexia nervosa: Status: Acute Code(s): F50.00 - Anorexia nervosa, unspecified Plan Based on the assessment today and the current situation she is being admitted medically for observation. She does not appear to be in need of detoxification any longer. She has been on a wait list for [facility] in [place]. Also her psychiatric medications can be resumed slowly, Haldol 5 mg b.i.d. is the only 1 she knows the dose. We can maybe verify the dose of Wellbutrin and Cogentin from her pharmacy and they can be resumed also. Since she is on the wait list for [facility] I would have the social work team tomorrow to contact them and see whether transferring her there once medically stable is a possibility. Total time managing care of this patient today ____ minutes. Patient educated on: diagnosis and medication risk/benefits
[2023-08-22] MEDS: Midodrine HCl 2.5 MG TABLET PO (10:02)
[2023-08-22] MEDS: Acetaminophen 325 MG TABLET 650 MG PO (10:33)
--- NOTE | 2023-08-22 11:46 | HO.PM.IMPN ---
Subjective Subjective Date of Service: 08/22/23 Interval History: anarexia nevrosa , sera, multiple electrolytic abnormalities Review of Systems feeling somewhat improving has some headache. boderline bp. Review of Systems: Yes all other systems are reviewed and are negative Physical Exam Vital Signs: Vital Signs: Last Vital Signs Temp 97.6 F 08/22/23 10:07 Pulse 70 08/22/23 10:07 Resp 20 08/22/23 10:07 BP 111/80 08/22/23 10:07 Pulse Ox 100 08/22/23 10:07 O2 Del Method Room Air 08/22/23 10:07 BMI result Body Mass Index 18.4 Appearance: Alert.? Oriented X3. cvs: rrr, [id number] . res: clear to auscultation ,no rhonchii or wheezing abd: no rebound or guarding ,nt, bs present. ext pulses present , no cyanosis . neuro: axo3 , nonfocal. Objective Data Active Medications Acetaminophen (Acetaminophen 325 Mg Tablet) 650 mg PO Q6H PRN PRN Reason: Pain, Mild (Pain Scale 1-3) Last Admin: 08/22/23 10:33 Dose: 650 mg Documented By: LAUREN Al Hydroxide/Mg Hydroxide (Magnesium Hydrox/Alum Hydrox 30 Ml Oral.Susp) 30 ml PO BID PRN PRN Reason: GI Upset Benzonatate (Benzonatate 100 Mg Capsule) 100 mg PO TID PRN PRN Reason: Cough Docusate Sodium (Docusate Sodium 100 Mg Capsule) 100 mg PO DAILY PRN PRN Reason: Constipation Enoxaparin Sodium (Enoxaparin Sodium 40 Mg/0.4 Ml Syringe) 40 mg SUBCUT Q24H [facility] Last Admin: 08/21/23 18:01 Dose: 40 mg Documented By: DITOLC Potassium Chloride/Dextrose/Sod Cl (Kcl 40 Meq In 5% Dex/0.9% Sod) 40 meq in 1,000 mls @ 100 mls/hr IVCONT .Q10H [facility] Last Admin: 08/22/23 09:47 Dose: 100 mls/hr Documented By: STEVENE Albumin Human (Kedbumin 25 %) 100 mls @ 100 mls/hr IV Q6H [facility] Stop: 08/23/23 02:59 Last Infusion: 08/22/23 10:35 Dose: Infused Documented By: LAUREN Melatonin (Melatonin 3 Mg Tablet) 6 mg PO BEDTIME PRN PRN Reason: Insomnia Nicotine Polacrilex (Nicotine Polacrilex 2 Mg Gum) 2 mg BUCCAL Q2H PRN PRN Reason: Nicotine Cravings Potassium Chloride (Potassium Chloride Er 20 Meq Tab.Er.Prt) 20 meq PO TID [facility] Last Admin: 08/22/23 07:32 Dose: 20 meq Documented By: AN Sodium Chloride (0.9 % Sodium Chloride Flush 3 Ml Syringe) 3 ml IVFLUSH QSHIFT [facility] Last Admin: 08/22/23 07:32 Dose: Not Given Documented By: AN Non-Admin Reason: IV Running Labs 08/21/23 13:59 08/22/23 06:14 Labs: Laboratory Results - last 24 hr 08/21/23 08/21/23 08/21/23 13:04 13:04 13:59 MCV 78.6 L MCH 28.9 MCHC 36.7 H RDW 13.9 Plt Count TNP MPV TNP Immature Gran % (Auto) Cancelled Neut % (Auto) Cancelled Lymph % (Auto) Cancelled [place] % (Auto) Cancelled Eos % (Auto) Cancelled Baso % (Auto) Cancelled Lymph # (Auto) Cancelled [place] # (Auto) Cancelled Eos # (Auto) Cancelled Baso # (Auto) Cancelled Abs Immat Gran (auto) Cancelled Absolute Neuts (auto) Cancelled Absolute Nucleated RBC 0.030 H Nucleated RBC % (auto) 0.4 H Neutrophils % (Manual) 75 H Band Neutrophils % 5 Lymphocytes % (Manual) 12 L Monocytes % (Manual) 8 Abs Neuts (Manual) 5.4 Lymphocytes # (Manual) 0.8 L Monocytes # (Manual) 0.5 Toxic Vacuolation PRESENT Platelet Estimate TNP Plt Morphology Comment TNP RBC Morphology NOTED Hypochromasia 1+ (5-14) Anion Gap 21 H Estim Creat Clear Calc 31.6 Estimated GFR 28 Random Glucose 101 Calcium 8.7 Phosphorus 4.0 Magnesium 2.5 Cancelled Total Bilirubin 0.5 Direct Bilirubin 0.2 AST 22 ALT 6 Alkaline Phosphatase 78 Troponin I High Sens 3.4 Total Protein 6.1 L Albumin 3.6 Lipase 35 Urine Color Urine Appearance Urine pH Ur Specific [place] Urine Protein Urine Glucose (UA) Urine Ketones Urine Blood Urine Nitrite Ur Leukocyte Esterase Urine Test Urine Opiates Screen Ur Buprenorphine Scrn Ur Oxycodone Screen Urine Methadone Screen Urine Fentanyl Screen Ur Barbiturates Screen Ur Phencyclidine Scrn Ur Amphetamines Screen U Benzodiazepines Scrn Urine Cocaine Screen U Marijuana (THC) Screen Influenza Type A (PCR) Influenza Type B (PCR) RSV RNA Qual (PCR) SARS-CoV-2 RNA (RT-PCR) 08/21/23 08/21/23 08/21/23 14:03 14:20 17:33 MCV MCH MCHC RDW Plt Count MPV Immature Gran % (Auto) Neut % (Auto) Lymph % (Auto) [place] % (Auto) Eos % (Auto) Baso % (Auto) Lymph # (Auto) [place] # (Auto) Eos # (Auto) Baso # (Auto) Abs Immat Gran (auto) Absolute Neuts (auto) Absolute Nucleated RBC Nucleated RBC % (auto) Neutrophils % (Manual) Band Neutrophils % Lymphocytes % (Manual) Monocytes % (Manual) Abs Neuts (Manual) Lymphocytes # (Manual) Monocytes # (Manual) Toxic Vacuolation Platelet Estimate Plt Morphology Comment RBC Morphology Hypochromasia Anion Gap 16 Estim Creat Clear Calc 33.7 Estimated GFR 30 Random Glucose 97 Calcium 8.7 Phosphorus Magnesium Total Bilirubin Direct Bilirubin AST ALT Alkaline Phosphatase Troponin I High Sens Total Protein Albumin Lipase Urine Color Yellow Urine Appearance Clear Urine pH 8.5 Ur Specific [place] <= 1.005 Urine Protein Negative Urine Glucose (UA) Negative Urine Ketones Negative Urine Blood Negative Urine Nitrite Negative Ur Leukocyte Esterase Negative Urine Test NEGATIVE Urine Opiates Screen Not Detected Ur Buprenorphine Scrn Not Detected Ur Oxycodone Screen Not Detected Urine Methadone Screen Not Detected Urine Fentanyl Screen Not Detected Ur Barbiturates Screen Not Detected Ur Phencyclidine Scrn Not Detected Ur Amphetamines Screen Not Detected U Benzodiazepines Scrn POSITIVE H Urine Cocaine Screen Not Detected U Marijuana (THC) Screen Not Detected Influenza Type A (PCR) NEGATIVE Influenza Type B (PCR) NEGATIVE RSV RNA Qual (PCR) NEGATIVE SARS-CoV-2 RNA (RT-PCR) NEGATIVE 08/21/23 08/22/23 08/22/23 22:23 06:01 06:14 MCV MCH MCHC RDW Plt Count MPV Immature Gran % (Auto) Neut % (Auto) Lymph % (Auto) [place] % (Auto) Eos % (Auto) Baso % (Auto) Lymph # (Auto) [place] # (Auto) Eos # (Auto) Baso # (Auto) Abs Immat Gran (auto) Absolute Neuts (auto) Absolute Nucleated RBC Nucleated RBC % (auto) Neutrophils % (Manual) Band Neutrophils % Lymphocytes % (Manual) Monocytes % (Manual) Abs Neuts (Manual) Lymphocytes # (Manual) Monocytes # (Manual) Toxic Vacuolation Platelet Estimate Plt Morphology Comment RBC Morphology Hypochromasia Anion Gap 14 Cancelled 15 Estim Creat Clear Calc 35.6 Cancelled 41.7 Estimated GFR 32 Cancelled 38 Random Glucose 99 Cancelled 100 Calcium 8.8 Cancelled 9.1 Phosphorus Magnesium 2.5 Total Bilirubin Direct Bilirubin AST ALT Alkaline Phosphatase Troponin I High Sens Total Protein Albumin Lipase Urine Color Urine Appearance Urine pH Ur Specific [place] Urine Protein Urine Glucose (UA) Urine Ketones Urine Blood Urine Nitrite Ur Leukocyte Esterase Urine Test Urine Opiates Screen Ur Buprenorphine Scrn Ur Oxycodone Screen Urine Methadone Screen Urine Fentanyl Screen Ur Barbiturates Screen Ur Phencyclidine Scrn Ur Amphetamines Screen U Benzodiazepines Scrn Urine Cocaine Screen U Marijuana (THC) Screen Influenza Type A (PCR) Influenza Type B (PCR) RSV RNA Qual (PCR) SARS-CoV-2 RNA (RT-PCR) Assessment and Plan (1) Anorexia nervosa: Status: Acute (2) Hypotension: Status: Acute (3) Prolonged QT interval: Status: Acute (4) Acute dehydration: Status: Acute (5) Hypokalemia: Status: Acute (6) Hyponatremia: Status: Acute (7) SERA (acute kidney injury): Status: Acute Plan 32-year-old female with a PMH significant for?anorexia nervosa alcoholic use disorder who presents to the ED from [facility] after experiencing a syncopal episode. Pt will be admitted to the hospital for treatment and further evaluation of syncopal episode, hypokalemia, and SERA in the setting of dehydration and reduced p.o. intake in a patient with anorexia nervosa. Syncopal episode-possible sec to dehydration causing hypotenion. seems to be improving with hydration,albumin,midodrine 2.5 mg x1,added albumin . Imaging of head, face, cervical spine negative for acute fractures or subluxation Monitor BP. boderline /intermittent hypotensive range BP: due to above. improving with above supportive care -see above under syncope section. acute Hypokalemia-likley due to poor oral intake. received multiple doses iv and po potassium Follow BMP, supplement as necessary Monitor on telemetry nephrology followin possible acute Hyponatremia-since recent dec in po inatke (Likely secondary to anorexia nervosa) improving with fluids improving encouraged for po intake. Follow BMP nephrology followin SERA-Secondary to dehydration from reduced p.o. intake Patient received IVF in the ED Will be placed on maintenance fluids Follow BMP nephrology followin Prolonged QTc-Likely secondary to hypokalemia Repeat EKG in morning qtc improving to 492 mc. Monitor on telemetry Anorexia nervosa Patient presented to ED from [facility] Psychiatry consult underweight possible sec to Anorexia nervosa: psych eval added nutrional eval. Full Code DVT Prophylaxis: Lovenox ongoing hospitalization need for treatment of?hypokalemia and SERA in the setting of anorexia and reduced p.o. intake. Given severity of patient's electrolyte abnormalities, she will require hospitalization for administration potassium supplementation, IVF, close monitoring of labs and cardiac function, and electrolyte supplementation as indicated. Quality Stroke Does the patient have a stroke diagnosis?: No VTE Prior VTE?: No VTE Risk Level:: Medical - moderate - high VTE Device Contraindication: Treatment Not Indicated VTE Drug Contraindication: N/A - Med Ordered
[2023-08-22] MEDS: Omeprazole 20 MG CAPSULE.DR PO (12:05)
[2023-08-22 12:21] LABS: Anion Gap 17 (12-20); Blood Urea Nitrogen 12 mg/dL (9-16); Calcium 9.4 mg/dL (8.4-10.2); Carbon Dioxide 32 mmol/L (22-29); Chloride 91 mmol/L (96-108); Creatinine Clr Calc Pharmacy 47.1; Estimated Glomerular Filt Rate 44; Glucose Random 100 mg/dL (60-115); Potassium 3.1 mmol/L (3.3-5.1); Sodium 137 mmol/L (135-145)
--- NOTE | 2023-08-22 13:06 | MHC.CM.PN ---
Pt came from [facility], she arrived here after a syncopal event. Pt previously lived with her mother in [place], [place]. DCP TBD: Pt may return to [facility] vs [facility] in [place] (eating disorder treatment center). This CM called [facility] ([phone]) and spoke to Marialuisa in admissions. Per Marialuisa, they did an intake assessment on August 03 for pt, however they are waiting for her entry examiner to provide them with a medical evaluation which as of Saturday 08/19 had not been received. Marialuisa states that the pt is not currently on the wait list and won't be added until they receive the medical evaluation form. Marialuisa suggests we call back tomorrow and ask for Carey for an update as she may be able to provide additional information. New HCP completed with pt, now on file. PCP: Dr. Steve Sloan
[2023-08-22] MEDS: Enoxaparin Sodium 40 MG/0.4 ML SYRINGE SUBCUT (17:23)
[2023-08-22] MEDS: 0.9 % Sodium Chloride Flush 3 ML SYRINGE IVFLUSH ×2 (17:25→20:05)
[2023-08-23] MEDS: Albumin Human 25 % 100 ML IV (01:48)
[2023-08-23] MEDS: Acetaminophen 325 MG TABLET 650 MG PO (03:02)
[2023-08-23 03:05] VITALS: BP 98/53; PULSE 63; RESP 14; TEMP 36.4; O2SAT 99
[2023-08-23] MEDS: Omeprazole 20 MG CAPSULE.DR PO (05:52)
[2023-08-23 07:21] VITALS: BP 96/64; PULSE 61; RESP 18; TEMP 36.5; O2SAT 100
[2023-08-23] MEDS: Potassium Chloride ER 20 MEQ TAB.ER.PRT PO ×2 (08:32→15:00)
[2023-08-23 09:28] LABS: Anion Gap 16 (12-20); Blood Urea Nitrogen 11 mg/dL (9-16); Carbon Dioxide 29 mmol/L (22-29); Chloride 96 mmol/L (96-108); Creatinine Clr Calc Pharmacy 58.8; Estimated Glomerular Filt Rate 56; Glucose Random 94 mg/dL (60-115); Sodium 138 mmol/L (135-145)
[2023-08-23] MEDS: Potassium Chloride Packet 20 MEQ PACKET 40 MEQ PO (09:53)
--- NOTE | 2023-08-23 10:47 | MHC.CM.PN ---
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 CM will follow.
[2023-08-23 11:18] VITALS: BP 93/65; PULSE 52; RESP 20; TEMP 36.4; O2SAT 100
--- NOTE | 2023-08-23 11:36 | MHC.CARE ---
Pt seen by CARE team, patent meets inpatient level of care and is a bed search currently.
--- NOTE | 2023-08-23 12:35 | P.CONNP_ITS ---
History of Present Illness Reason for Consult Consult date: 08/23/23 Chief Complaint Chief complaint: Hypokalemia, sera, syncope History of Present Illness Narrative: 32-year-old female with anorexia nervosa as well as alcoholic use disorder presented to the ER from [facility] after experiencing a syncopal episode. Patient was ordering breakfast when she felt lightheaded, dizzy, and had syncopal episode, hitting her head on the counter. Reports brief 1-2 minutes of loss of consciousness. States she has been having lightheadedness and dizziness often in the mornings for the past 2-3 days prior to presentation. Patient has long history of heavy alcohol use, reports was drinking nonstop without eating up until last when she was admitted to [facility]. Denies chest pain/pressure, palpitations. No fever, chills. Patient reports has experienced abdominal pain for the past month, that has been diagnosed as alcoholic gastritis. Had similar syncopal episode about a year ago. ?In the ED pt was hypotensive as low as 79/50. Labs were significant for sodium 127, potassium 2.1, chloride 72, bicarb 36, BUN 20, and creatinine 2.08. UA negative for UTI. Test negative for flu, RSV, COVID. CXR showed no acute cardiopulmonary findings. CT of head, face, and cervical spine negative for acute visible fracture or dislocation, though did show mild thickening of upper esophagus. EKG demonstrated normal sinus prolonged QTc of 590 with no evidence of ST elevations or depressions. Pt was treated with IVF, Mag sulfate, potassium 40 mEq p.o., and potassium chloride 10 mEq IV. Pt was admitted to the hospital for further management. Nephrology has been consulted to assist in her clinical care during her current hospital stay Review of Systems Review of Systems Yes all other systems are reviewed and are negative [facility] Social History Social History Household Members: Family Housing: House Comment: pt refusing fall precautions and alarms Patient Tobacco Use Status: Former Tobacco user service: No Meds Allergies Allergy/AdvReac Type Severity Reaction Status Date / Time bee pollen [bee stings] Allergy Anaphylaxis Verified 08/21/23 10:05 Active Medications: Current Medications Acetaminophen (Acetaminophen 325 Mg Tablet) 650 mg PO Q6H PRN PRN Reason: Pain, Mild (Pain Scale 1-3) Last Admin: 08/23/23 03:02 Dose: 650 mg Al Hydroxide/Mg Hydroxide (Magnesium Hydrox/Alum Hydrox 30 Ml Oral.Susp) 30 ml PO BID PRN PRN Reason: GI Upset Benzonatate (Benzonatate 100 Mg Capsule) 100 mg PO TID PRN PRN Reason: Cough Docusate Sodium (Docusate Sodium 100 Mg Capsule) 100 mg PO DAILY PRN PRN Reason: Constipation Enoxaparin Sodium (Enoxaparin Sodium 40 Mg/0.4 Ml Syringe) 40 mg SUBCUT Q24H [facility] Last Admin: 08/22/23 17:23 Dose: 40 mg Melatonin (Melatonin 3 Mg Tablet) 6 mg PO BEDTIME PRN PRN Reason: Insomnia Nicotine Polacrilex (Nicotine Polacrilex 2 Mg Gum) 2 mg BUCCAL Q2H PRN PRN Reason: Nicotine Cravings Omeprazole (Omeprazole 20 Mg Capsule.Dr) 20 mg PO DAILY@0630 [facility] Last Admin: 08/23/23 05:52 Dose: 20 mg Potassium Chloride (Potassium Chloride Er 20 Meq Tab.Er.Prt) 20 meq PO TID [facility] Last Admin: 08/23/23 08:32 Dose: 20 meq Sodium Chloride (0.9 % Sodium Chloride Flush 3 Ml Syringe) 3 ml IVFLUSH QSHIFT [facility] Last Admin: 08/23/23 07:14 Dose: Not Given Home Medications ?Medication ?Instructions ?Recorded ?Confirmed ?Last Taken ?Type acetaminophen 325 mg tablet 650 mg PO Q4H PRN Fever Or Pain 08/21/23 08/21/23 Unknown History (Tylenol) aluminum-mag hydroxide-simethicone 30 ml PO BID PRN GI Upset 08/21/23 08/21/23 Unknown History 200 mg-200 mg-20 mg/5 mL oral susp benzocaine 15 mg-menthol 3.6 mg 1 latrell mucous membrane Q2H PRN Sore 08/21/23 08/21/23 Unknown History lozenges Throat clonidine HCl 0.1 mg tablet 0.1 mg PO TID PRN Anxiety 08/21/23 08/21/23 Unknown History docusate sodium 100 mg capsule 100 mg PO BID PRN Constipation 08/21/23 08/21/23 Unknown History melatonin 3 mg tablet 6 mg PO BEDTIME PRN Sleep 08/21/23 08/21/23 Unknown History nicotine (polacrilex) 2 mg gum 2 mg buccal Q2H PRN Nicotine 08/21/23 08/21/23 Unknown History Cravings Physical Exam Vital Signs: Last Vital Signs Temp 97.5 F 08/23/23 11:18 Pulse 52 08/23/23 11:18 Resp 20 08/23/23 11:18 BP 93/65 08/23/23 11:18 Pulse Ox 100 08/23/23 11:18 O2 Del Method Room Air 08/23/23 11:18 BMI result Body Mass Index 18.4 Const General: no acute distress Orientation/consciousness: patient oriented x3 Eyes EOM: EOMs intact bilaterally Neck Neck: Yes supple Resp Auscultation: diminished lung sounds Cardio Rate: regular rate GI Palpation (GI): Soft to palpation Neuro General: patient oriented x3 and moves all extremities Extrem General: Yes no pedal edema Results Lab Results 08/21/23 13:59 08/23/23 09:01 Lab results: Chemistry 08/21/23 08/21/23 08/21/23 13:04 17:33 22:23 Sodium 127 L 132 L 134 L Potassium 2.1 L* 2.6 L* D 2.7 L* Carbon Dioxide 36 H 39 H 42 H* BUN 20 H 19 H 17 H Creatinine 2.08 H 1.95 H 1.85 H Calcium 8.7 8.7 8.8 Phosphorus 4.0 08/22/23 08/22/23 08/22/23 06:01 06:14 11:50 Sodium Cancelled 137 137 Potassium Cancelled 2.6 L* 3.1 L Carbon Dioxide Cancelled 36 H 32 H BUN Cancelled 14 12 Creatinine Cancelled 1.58 H 1.40 Calcium Cancelled 9.1 9.4 Phosphorus 08/23/23 09:01 Sodium 138 Potassium 3.0 L Carbon Dioxide 29 BUN 11 Creatinine 1.12 Calcium 10.0 D Phosphorus Hematology 08/21/23 13:59 WBC 6.7 Hgb 11.2 L Plt Count TNP Urinalysis 08/21/23 14:20 Urine Color Yellow Urine Appearance Clear Urine pH 8.5 Ur Specific [place] <= 1.005 Urine Protein Negative Urine Glucose (UA) Negative Urine Ketones Negative Urine Blood Negative Urine Nitrite Negative Ur Leukocyte Esterase Negative Assessment and Plan (1) SERA (acute kidney injury): Status: Acute Plan SERA due to tubular injury U/A bland; No reason to suspect GN/AIN No known renal dysfunction Serum creatinine improving Keep potassium over 4 C/W rest of current management for now Procedures Date of Service Date of Service: 08/23/23
[2023-08-23 13:07] VITALS: BMI 18.4
--- NOTE | 2023-08-23 13:16 | MHC.CLN ---
PT IS UNDER WT FOR HT PT WITH BMI 18.4 WHICH IS ON LOWER END OF IDEAL BODY WT RANGE FOR HT. PT ADMITS TO POOR PO INTAKE R/T ETOH ABUSE STEMMING FROM HX ANOREXIA NERVOSA. PT REPORTS WT FLUCTUATES BUT UNABLE TO GIVE ME SPECIFICS-STATED HER USUAL WT RANGES FROM 105-115#; CURRENTLY 114# APPEARS WELL NOURISHED WITHOUT S/S MALNUTRITION AT THIS TIME HOWEVER PT IS AT HIGH RISK FOR MALNUTRITION D/T EATING DISORDER REGULAR DIET-REVIEWED PT'S FOOD PREFERENCES REFUSES SUPPLEMENTS PT [facility]CM AWARE MONITOR PO INTAKE CLOSELY SEE FULL CLINICAL NUTRITION ASSESSMENT
--- NOTE | 2023-08-23 14:45 | P.DS_ITS ---
DS: Providers Provider Date of Service: 08/23/23 Date of admission: 08/21/23 17:14 Date of discharge: 08/23/23 Primary care physician: Unknown Physician Admitting clinician: Renee Montoya Attending physician on admission: Renee Montoya Consults: 08/21/23 16:43 Consult to Psychiatry Routine Consulting Provider: Psych Covering Reason for consultation: Anorexia nervosa; sent to ED from [facility] 08/21/23 19:37 Consult to Nephrology Routine Consulting Provider: [facility] Reason for consultation: Electrolytes imbalances Has provider been notified: No 08/23/23 10:08 Consult to Care Team Routine Comment: Reason for consultation: Nesscessity for inpatient level DS: Diagnosis Discharge Diagnosis (1) SERA (acute kidney injury): Status: Acute DS: Summary Hospital Course Hospital Course: 32-year-old female with a PMH significant for?anorexia nervosa alcoholic use disorder who presents to the ED from [facility] after experiencing a syncopal episode. Patient was ordering breakfast when she felt lightheaded, dizzy, and had syncopal episode, hitting her head on the counter. Reports brief 1-2 minutes of loss of consciousness. States she has been having lightheadedness and dizziness often in the mornings for the past 2-3 days. Has been eating and drinking less than normal, though has been trying to force herself to eat. Patient has long history of heavy alcohol use, reports was drinking nonstop without eating up until last when she was admitted to [facility]. Denies chest pain/pressure, palpitations. No fever, chills. Did have 1 episode of nausea and vomiting in the ambulance. Complains of mild headache and back stiffness. Patient reports has experienced abdominal pain for the past month, that has been diagnosed as alcoholic gastritis. Had similar syncopal episode about a year ago. ? In the ED pt was hypotensive as low as 79/50, and had elevated. Labs were significant for sodium 127, potassium 2.1, chloride 72, bicarb 36, BUN 20, and creatinine 2.08. UA negative for UTI. Test negative for flu, RSV, COVID. CXR showed no acute cardiopulmonary findings. CT of head, face, and cervical spine negative for acute visible fracture or dislocation, though did show mild thickening of upper esophagus. EKG demonstrated normal sinus prolonged QTc of 590 with no evidence of ST elevations or depressions. Pt was treated with IVF, Mag sulfate, potassium 40 mEq p.o., and potassium chloride 10 mEq IV. Pt will be admitted to the hospital for treatment and further evaluation of syncopal episode, hypokalemia, and SERA in the setting of dehydration and reduced p.o. intake in a patient with anorexia nervosa. Hospital course:32-year-old female with a PMH significant for?anorexia nervosa alcoholic use disorder who presents to the ED from [facility] after experiencing a syncopal episode(CT of head, face, and cervical spine negative for acute visible fracture or dislocation). Pt will be admitted to the hospital for treatment and further evaluation of syncopal episode sec to hypotension (due to dehydration/dec po inatke/anorexia nevrosa), qtc prolongation, acute hypokalemia and hyponatremia, and SERA in the setting of dehydration and reduced p.o. intake in a patient with anorexia nervosa: Patient was treated with aggressive IV hydration, electrolyte repletion-patient has SERA improved and hypokalemia seems to be improving. EKG repeated QTC is also improved significantly. Patient started eating. Patient was subsequently seen by care team and recommended an [facility] bed search-accepted c . Doc to doc completed. plan: continue potassium 20 meq tid for today -check electrolytes tomorrow. Patient was strongly advised and encouraged for p.o. intake. Further management as per psych-please see Dr. Romo's note from yesterday. Assessment and plan coordination time spent 40 minute. Time Attestation Total time managing care of this patient today: 40 mintues. Discharge Coordination Time (in mins): 40 min Quality: Safe Use of Opioids Does Pt have an Active Cancer Diagnosis on the Problem List?: No Quality: Stroke Does the patient have a stroke diagnosis?: No Physical Exam Vital Signs: Vital Signs: Last Vital Signs Temp 97.5 F 08/23/23 11:18 Pulse 52 08/23/23 11:18 Resp 20 08/23/23 11:18 BP 93/65 08/23/23 11:18 Pulse Ox 100 08/23/23 11:18 O2 Del Method Room Air 08/23/23 11:18 BMI result Body Mass Index 18.4 Appearance: Alert.? Oriented X3. cvs: rrr, [id number] . res: clear to auscultation ,no rhonchii or wheezing abd: no rebound or guarding ,nt, bs present. ext pulses present , no cyanosis . neuro: axo3 , nonfocal. DS: Data Data Completed and Pending Labs on day of discharge: Laboratory Results - last 24 hr 08/23/23 09:01 Sodium 138 Potassium 3.0 L Chloride 96 Carbon Dioxide 29 Anion Gap 16 BUN 11 Creatinine 1.12 Estim Creat Clear Calc 58.8 Estimated GFR 56 Random Glucose 94 Calcium 10.0 D Imaging Chest x-ray: Radiologist's impression: ITS Impressions Chest X-Ray 08/21/23 12:22 IMPRESSION: No acute cardiopulmonary findings. Cervical Spine CT 08/21/23 13:48 IMPRESSION: No acute intracranial pathology. No acute visible fracture or dislocation. EXAMINATION: Noncontrast CT scan of the cervical spine. INDICATION: Fall neck pain COMPARISON: None. TECHNIQUE: Helical, multidetector axial images were obtained from the occiput to the upper thorax. Coronal and sagittal reformats of the cervical spine were provided for interpretation. DLP: 264 mGy-cm FINDINGS: Patient motion artifact slightly limits evaluation. No acute fractures or dislocations of the cervical spine are seen. Straightening with slight reversal and normal cervical curvature. Anatomic alignment and positioning of the vertebral bodies and posterior elements is noted. The atlantoaxial joint and craniovertebral articulations are normal without evidence of subluxation. There is no prevertebral soft tissue swelling. Emphysematous changes of the visualized lung servin. Mild thickening of the upper esophagus. Visualized portions of the thyroid are unremarkable. IMPRESSION: 1. Patient motion artifact slightly limits evaluation. 2. No acute visible fracture or dislocation. 3. Straightening with slight reversal of normal cervical curvature. 4. Mild thickening of the upper esophagus. Face CT 08/21/23 13:48 IMPRESSION: No acute intracranial pathology. No acute visible fracture or dislocation. EXAMINATION: Noncontrast CT scan of the cervical spine. INDICATION: Fall neck pain COMPARISON: None. TECHNIQUE: Helical, multidetector axial images were obtained from the occiput to the upper thorax. Coronal and sagittal reformats of the cervical spine were provided for interpretation. DLP: 264 mGy-cm FINDINGS: Patient motion artifact slightly limits evaluation. No acute fractures or dislocations of the cervical spine are seen. Straightening with slight reversal and normal cervical curvature. Anatomic alignment and positioning of the vertebral bodies and posterior elements is noted. The atlantoaxial joint and craniovertebral articulations are normal without evidence of subluxation. There is no prevertebral soft tissue swelling. Emphysematous changes of the visualized lung servin. Mild thickening of the upper esophagus. Visualized portions of the thyroid are unremarkable. IMPRESSION: 1. Patient motion artifact slightly limits evaluation. 2. No acute visible fracture or dislocation. 3. Straightening with slight reversal of normal cervical curvature. 4. Mild thickening of the upper esophagus. Head CT 08/21/23 13:48 IMPRESSION: No acute intracranial pathology. No acute visible fracture or dislocation. EXAMINATION: Noncontrast CT scan of the cervical spine. INDICATION: Fall neck pain COMPARISON: None. TECHNIQUE: Helical, multidetector axial images were obtained from the occiput to the upper thorax. Coronal and sagittal reformats of the cervical spine were provided for interpretation. DLP: 264 mGy-cm FINDINGS: Patient motion artifact slightly limits evaluation. No acute fractures or dislocations of the cervical spine are seen. Straightening with slight reversal and normal cervical curvature. Anatomic alignment and positioning of the vertebral bodies and posterior elements is noted. The atlantoaxial joint and craniovertebral articulations are normal without evidence of subluxation. There is no prevertebral soft tissue swelling. Emphysematous changes of the visualized lung servin. Mild thickening of the upper esophagus. Visualized portions of the thyroid are unremarkable. IMPRESSION: 1. Patient motion artifact slightly limits evaluation. 2. No acute visible fracture or dislocation. 3. Straightening with slight reversal of normal cervical curvature. 4. Mild thickening of the upper esophagus. Renal Ultrasound 08/22/23 13:15 IMPRESSION: Unremarkable renal ultrasound.. Discharge Plan Discharge Anticipated Discharge Date/Time: 08/23/23 14:37 Patient Disposition: Xfer Psychiatric Hosp Discharge Diagnosis: hypotension ,sera, hypokalemia Referrals: Physician,Unknown J [Primary Care Provider] - 1 Week Discharge Medications: Continued clonidine HCl 0.1 mg Tablet 0.1 mg PO TID PRN (Reason: Anxiety) acetaminophen [Tylenol] 325 mg Tablet 650 mg PO Q4H PRN (Reason: Fever Or Pain) Rx Instructions: NTE 3 G /24 DAYS nicotine (polacrilex) 2 mg Gum 2 mg BUCCAL Q2H PRN (Reason: Nicotine Cravings) Rx Instructions: MAX 24 PIECES A DAY melatonin 3 mg Tablet 6 mg PO BEDTIME PRN (Reason: Sleep) docusate sodium 100 mg Capsule 100 mg PO BID PRN (Reason: Constipation) alum-mag hydroxide-simeth 200-200-20 mg/5 mL Suspension 30 ml PO BID PRN (Reason: GI Upset) Rx Instructions: administer between meals and at bedtime benzocaine-menthol 15-3.6 mg Lozenge 1 latrell MUCOUS MEMBRANE Q2H PRN (Reason: Sore Throat) Discharge Orders: Discharge Order (Routine); Ordered 08/23/23 Ordered By: Renee Montoya Diet: Advance to usual diet Activity on Discharge: As tolerated Stand Alone Forms: Patient Portal Discharge page Print Language: Belarusian
--- NOTE | 2023-08-23 14:58 | MHC.CM.PN ---
Per MD, Patient will be transferred/discharged to [facility].
[2023-08-23 15:23] VITALS: BP 94/66; PULSE 78; RESP 18; TEMP 36.4; O2SAT 99
== END 2023-08-23 16:13 | DRG 207 ==
LOC: HO.ED 15:32 → HO.EDOVER 17:15 → HO.IMC 08-22 07:35
PROVIDERS: Internal Medicine; Internal Medicine Nephrology; Admitting Provider Student in an Organized Health Care Education/Training Program; Emergency Provider Emergency Medicine; PCP Internal Medicine; Visit Provider Internal Medicine
DX: I95.9 Hypotension, unspecified (principal); N17.0 Acute kidney failure with tubular necrosis; F50.00 Anorexia nervosa, unspecified; E87.6 Hypokalemia; E86.0 Dehydration; E87.1 Hypo-osmolality and hyponatremia; F10.20 Alcohol dependence, uncomplicated; R94.31 Abnormal electrocardiogram [ECG] [EKG]; Z20.822 Contact with and (suspected) exposure to COVID-19; Z91.51 Personal history of suicidal behavior; Z68.1 Body mass index [BMI] 19.9 or less, adult; Z79.899 Other long term (current) drug therapy
CPT/HCPCS: 0241U; 36415; 70450; 70486; 71045; 72125; 76775; 80048; 80076; 80307; 81003; 81025; 83690; 83735; 84100; 84484; 85007; 85027; 93005; 99285; J1650; J3475; J3480; J7120; P9047; S9485

== ENCOUNTER → 2023-08-21 10:12 | Outpatient (BNV) | payer MEDICAID, SELFPAY | PROVIDERS: Admitting Provider Student in an Organized Health Care Education/Training Program; Emergency Provider Emergency Medicine; Visit Provider Internal Medicine Cardiovascular Disease | DX: R55 Syncope and collapse (principal); I45.81 Long QT syndrome | CPT/HCPCS: 93010 ==

== ENCOUNTER 2023-08-21 17:14 | Outpatient (BNV) | payer MEDICAID, SELFPAY | END 2023-08-22 08:00 | PROVIDERS: Admitting Provider Student in an Organized Health Care Education/Training Program; Emergency Provider Emergency Medicine; Visit Provider Internal Medicine Cardiovascular Disease | DX: I45.81 Long QT syndrome (principal); I95.9 Hypotension, unspecified | CPT/HCPCS: 93010 ==

== ENCOUNTER → 2023-08-21 17:14 | Outpatient (BNV) | payer OTHER, MEDICAID, SELFPAY | PROVIDERS: Admitting Provider Student in an Organized Health Care Education/Training Program; Emergency Provider Emergency Medicine; Visit Provider Psychiatry & Neurology Psychiatry | DX: F50.00 Anorexia nervosa, unspecified (principal) | CPT/HCPCS: 99222 ==

== ENCOUNTER → 2023-08-21 17:14 | Outpatient (BNV) | payer MEDICAID, SELFPAY | PROVIDERS: Admitting Provider Student in an Organized Health Care Education/Training Program; Emergency Provider Emergency Medicine; Visit Provider Internal Medicine Nephrology | DX: N17.0 Acute kidney failure with tubular necrosis (principal) | CPT/HCPCS: 99222; 99499 ==

== ENCOUNTER → 2023-08-21 17:14 | Outpatient (BNV) | payer MEDICAID, SELFPAY | PROVIDERS: Admitting Provider Student in an Organized Health Care Education/Training Program; Emergency Provider Emergency Medicine; Visit Provider Student in an Organized Health Care Education/Training Program | DX: N17.9 Acute kidney failure, unspecified (principal) | CPT/HCPCS: 99223; 99233; 99239 ==

== ENCOUNTER 2023-08-23 16:19 | Outpatient (BNV) | payer MEDICAID, SELFPAY | END 2023-08-24 08:00 | PROVIDERS: Admitting Provider Social Worker; Responsible Provider Registered Nurse; Visit Provider Internal Medicine Cardiovascular Disease | DX: R00.1 Bradycardia, unspecified (principal) | CPT/HCPCS: 93010 ==

== ENCOUNTER 2023-08-23 16:19 | Outpatient (BNV) | payer MEDICAID, SELFPAY | END 2023-08-28 10:27 | PROVIDERS: Admitting Provider Social Worker; Responsible Provider Registered Nurse; Visit Provider Internal Medicine Cardiovascular Disease | DX: E87.6 Hypokalemia (principal) | CPT/HCPCS: 93010 ==

== ENCOUNTER 2023-08-23 16:19 | Inpatient (IN) | payer OTHER, SELFPAY ==
[2023-08-23 16:30] VITALS: BP 98/56; PULSE 100; RESP 16; TEMP 36.6; O2SAT 100
[2023-08-23] MEDS: diazePAM 2 MG TABLET PO (17:24)
[2023-08-23 17:35] VITALS: BMI 18.9
--- NOTE | 2023-08-23 18:06 | PC.NURSE ---
Gabrielle was admitted to at 1630 from [facility] on CV for treatment of mood disorder, food intake disorder and alcohol use disorder. Pt was inpt at [facility] 08/13/23 - 08/21/23, fell there with a head strike and was transported to [facility] ED where she was admitted to [facility] for SERA and hypokalemia. Head CT was negative. She is medically cleared and sent to today for continued treatment of her complex mental health issues. On admission she is alert, fully oriented, irritable but mostly cooperative with admission process. I just can't think straight. I can't focus to do all of this now. Mood is depressed. Affect is anxious and irritable. She received a one time dose of Valium 1mg for anxiety with effect pending. She denies all s/s psychosis. She denies ideation, plan or intent to harm self or others. Appetite is poor. She is distraught over 5lb weight gain since admission to the hospital stating she usually weighs 112 and can't focus on anything besides the number on our scale this afternoon. Pt reports longstanding difficulty falling asleep and staying asleep. She has been using trazodone but due to recent prolonged QTC (599 on 08/20) trazodone was discontinued. Pt denies substance abuse issue other than etoh use disorder. She confirms that she has been drinking 18 nips per day every day for at least 2 years. Last drink was 08/11 prior to admission to [facility]. Medical Issues?include recent injury to left eye (abrasion with contusion) d/t fall, sera, hypokalemia. She denies current physical complaint. Goal of admission: is to get referred back to [facility] for longer term treatment of her food intake disorder. My drinking isn't the priority. I'm basically killing myself with the food issue.: Pt is placed on 5 minute checks with a locked bathroom for safety.
[2023-08-23 19:25] VITALS: BP 95/64; PULSE 56; RESP 16; TEMP 36.5; O2SAT 99
[2023-08-23] MEDS: Loperamide HCl 2 MG CAPSULE PO (21:12)
[2023-08-23] MEDS: Melatonin 3 MG TABLET 6 MG PO (22:32)
[2023-08-23] MEDS: traZODone HCL 50 MG TABLET PO (22:32)
[2023-08-23] MEDS: hydrOXYzine HCL 25 MG TABLET PO (22:32)
[2023-08-24 07:42] VITALS: BP 96/55; PULSE 50; RESP 14; TEMP 36.6; O2SAT 99
--- NOTE | 2023-08-24 08:00 | ECG_ITS ---
Test Reason : QTC CHECK Blood Pressure : / mmHG Vent. Rate : 047 BPM Atrial Rate : 047 BPM P-R Int : 134 ms QRS Dur : 082 ms QT Int : 476 ms P-R-T Axes : 047 087 066 degrees QTc Int : 421 ms Sinus bradycardia with sinus arrhythmia Low voltage QRS Borderline ECG When compared with ECG of 22-AUG-2023 08:08, Vent. rate has decreased BY 23 BPM QT has shortened Referred By: Inga Monahan Electronically Signed By:EDISON REES MD
[2023-08-24] MEDS: hydrOXYzine HCL 25 MG TABLET PO (08:22)
[2023-08-24 08:47] LABS: Alanine Aminotransferase 6 U/L (0-31); Albumin Level 5.2 g/dL (3.5-5.0); Alkaline Phosphatase 57 U/L (39-117); Anion Gap 15 (12-20); Aspartate Amino Transferase 18 U/L (5-31); Bilirubin Total 0.4 mg/dL (0.0-1.0); Blood Urea Nitrogen 6 mg/dL (9-16); Calcium 10.7 mg/dL (8.4-10.2); Carbon Dioxide 29 mmol/L (22-29); Chloride 98 mmol/L (96-108); Cholesterol 133 mg/dL (<200); Creatinine Clr Calc Pharmacy 67.7; Estimated Glomerular Filt Rate > 60; Glucose Fasting 92 mg/dL (60-99); HDL Cholesterol 36 mg/dL (>40); LDL Cholesterol Calculated 55 mg/dL (<100); Magnesium 1.9 mg/dL (1.6-2.6); Potassium 3.1 mmol/L (3.3-5.1); Sodium 139 mmol/L (135-145); Total Protein 7.2 g/dL (6.5-8.0); Triglycerides 211 mg/dL (<150)
[2023-08-24 09:03] LABS: Thyroid Stimulating Hormone 0.87 uIU/mL (0.32-4.0)
[2023-08-24 09:04] LABS: Estimated Average Glucose 100 mg/dL; Hemoglobin A1c % 5.1 % (<6.0)
[2023-08-24 09:12] LABS: Vitamin B12 796 pg/mL (200-900)
--- NOTE | 2023-08-24 09:41 | P.HPPS_ITS ---
HPI Date of Service: 08/24/23 Chief Complaint: Depression Sources of Information: patient interviewed, chart reviewed and crisis/core team assessment reviewed HPI Subjective Notes: Friedman Warning and Conditional Voluntary Narrative: Patient is a 32 year old female with hx of MDD, PTSD, alcohol use d/o and anorexia, who was admitted to [facility] diagnosis unit for depression and suicidal ideation on 08/17/23; while there pt had a syncopal episode which she hit her face and head on a counter. Pt was transferred to [facility] ER on 08/21/23 and admitted medically for treatment of hypokalema and SERA d/t anorexia and reduced PO intake. Pt was medically cleared and transferred to for psychiatric treatment on 08/23/23. Per crisis report, pt has hx of depression and daily chronic alcohol use. Per patient's mother, she believes pt's eating disorder is the root of the issue. She reports, pt purges multiple times a day, which makes the medications she is taking not effective as a result. During admission assessment, pt presents alert and oriented, calm, cooperative but guarded. Pt stated, I went to detox, then [facility] then here because my electrolytes were low. I'm depressed and anxious. I've been drinking heavily since high school and now I drink about 12-18 nips a day. I've had a 1 1/2 sobriety in the past. Pt reports she usually doesnt come to psych hospitals and just go to detox for help . Pt reports she has a hard time remembering the treatments I've had but you guys can talk to my mom . Pt reports she drinks heavily to help her relax and sleep with my anxiety . Pt stated, I've been drinking for so long, I don't really know what my mood is like . pt denies SI/HI/VH/AH. Pt stated, I just want to get on my meds and go to the next place. I'm on a waiting list to go to [place] for my eating disorder . Pt reports having an outpatient therapist but currently does not have an outpatient psychaitrist and is interested in a referral. Pt gave T/W verbal consent to speak with mother; pt's mother stated, I don't know what medications she has taken in the past or the treatments she has received because she never let me speak to anyone when she was in treatment . Per her prescription monitoring hx; psychiatric scripts have not been filled since 03/2023. Past Psychiatric History: Multiple detox admissions. hx of admissions to [facility] eating disorder unit, [facility] hx of SA at age 16; OD on Tylenol. Medical Evaluation Reviewed: Yes PMF Family History: Mother: anxiety father: substance abuse Uncle: bipolar d/o Social History: lives with mother, single, no children, unemployed. Substance History: ETOH daily use. pt stated 12-18 nips daily . Trauma History: yes Diagnostics Vital Signs (24Hr): Vital Signs - 24 hr 08/23/23 16:30 08/23/23 19:25 08/24/23 07:42 Temperature 97.9 F 97.7 F 97.8 F Pulse Rate 100 56 50 Respiratory Rate 16 16 14 Blood Pressure 98/56 L 95/64 96/55 L Pulse Oximetry 100 99 99 Oxygen Delivery Method Room Air Room Air Room Air BMI result Body Mass Index 18.9 Labs 08/24/23 08:02 Labs: Laboratory Results - last 48 hr 08/24/23 08:02 Sodium 139 Potassium 3.1 L Chloride 98 Carbon Dioxide 29 Anion Gap 15 BUN 6 L Creatinine 1.00 Estim Creat Clear Calc 67.7 Estimated GFR > 60 Fasting Glucose 92 Estimat Average Glucose 100 Hemoglobin A1c % 5.1 Calcium 10.7 H D Magnesium 1.9 Total Bilirubin 0.4 AST 18 ALT 6 Alkaline Phosphatase 57 Total Protein 7.2 Albumin 5.2 H Triglycerides 211 H Cholesterol 133 LDL Cholesterol, Calc 55 HDL Cholesterol 36 L Vitamin B12 796 TSH 0.87 Meds/Allergies Meds Home Medications ?Medication ?Instructions ?Recorded ?Confirmed ?Type acetaminophen 325 mg tablet 650 mg PO Q4H PRN Fever Or Pain 08/21/23 08/23/23 History (Tylenol) docusate sodium 100 mg capsule 100 mg PO BID PRN Constipation 08/21/23 08/23/23 History melatonin 3 mg tablet 6 mg PO BEDTIME PRN Sleep 08/21/23 08/23/23 History Allergies Allergies Allergy/AdvReac Type Severity Reaction Status Date / Time bee pollen [bee stings] Allergy Anaphylaxis Verified 08/21/23 10:05 Mental Status Exam Mental Status Exam Narrative: Pt is alert and oriented; behavior is cooperative and calm; dressed in casual attire; mood is described as depressed and anxious ; eye contact appropriate; Speech is normal rate, volume and prosody and not pressured; thought process is organized and goal directed; Thought content is on tx; otherwise pertinent to relevant topics and without any delusional content, paranoid ideations or grandiosity; denies SI/HI/VH/AH. Assessment & Plan Assessment & Plan (1) MDD (major depressive disorder), recurrent episode, severe: Status: Acute Code(s): F33.2 - Major depressive disorder, recurrent severe without psychotic features (2) PTSD (post-traumatic stress disorder): Status: Acute Code(s): F43.10 - Post-traumatic stress disorder, unspecified (3) Alcohol use disorder: Status: Acute Code(s): F10.90 - Alcohol use, unspecified, uncomplicated (4) Anorexia nervosa: Status: Acute Code(s): F50.00 - Anorexia nervosa, unspecified Plan Patient is a 32 year old female with hx of MDD, PTSD, alcohol use d/o and anorexia, who was admitted to [facility] diagnosis unit for depression and suicidal ideation on 08/17/23; while there pt had a syncopal episode which she hit her face and head on a counter. Pt was transferred to [facility] ER on 08/21/23 and admitted medically for treatment of hypokalema and SERA d/t anorexia and reduced PO intake. Pt was medically cleared and transferred to for psychiatric treatment on 08/23/23. Plan: CV 5 minute safety checks obtain collateral Monitor labs addiction consult discharge planning Start: Lexapro 10mg PO daily Haldol 5mg PO BID Cogentin 0.5mg PO bedtime Buspar 10mg PO BID Patient educated on: diagnosis, medication risk/benefits, substance abuse and therapeutic strategies Informed Consent: understands Reason for continued inpatient stay Substantial Risk for: med/psych decompensation Statement Statement: I have reviewed the history and physical and performed a pertinent examination on my patient. No changes have occurred unless specified. If the History and Physical was not performed prior to admission, the Hospitalist's service will be consulted for completing the admission physical. Time Spent With Patient Time: Total time managing care of this patient today _60___ minutes.
[2023-08-24] MEDS: Acetaminophen 325 MG TABLET 650 MG PO ×2 (11:30→21:04)
[2023-08-24] MEDS: busPIRone HCl 10 MG TABLET PO ×2 (12:32→21:04)
[2023-08-24] MEDS: Escitalopram Oxalate 10 MG TABLET PO (12:32)
[2023-08-24] MEDS: HaloperidoL 5 MG TABLET PO ×2 (12:32→22:41)
--- NOTE | 2023-08-24 15:47 | PM.EVENT ---
Event Note Date of Service: 08/24/23 Event Note: 32-year-old female with a PMH significant for?anorexia nervosa transferred to adult psychiatry from medicine after being treated for hypotension due to dehydration/poor po intake/anorexia nervosa and acute hypokaelmia and hyponatremia and gema in setting of dehydration. Electrolytes were repleted but patient was not discharged to psychiatry on potassium supplement. Potassium level this morning 3.0. Will have patient take 40meq po kcl x1 now and start KCl 20meq ER PO now and continue daily. Recheck BMP am and then in 3 days. Thank you for allowing me to participate in this consult. Signing off at this time. Please do not hesitate to call for further questions or for any acute medical issues. Time Spent With Patient Time: Total time managing care of this patient today ____ minutes.
[2023-08-24] MEDS: Potassium Chloride Packet 20 MEQ PACKET 40 MEQ PO (16:49)
[2023-08-24] MEDS: Potassium Chloride ER 20 MEQ TAB.ER.PRT PO (16:52)
[2023-08-24 21:00] VITALS: BP 97/56; PULSE 58; RESP 16; TEMP 36.3; O2SAT 100
[2023-08-24] MEDS: hydrOXYzine HCL 50 MG TABLET PO (21:05)
[2023-08-24] MEDS: Benztropine Mesylate 0.5 MG TABLET PO (22:41)
[2023-08-24] MEDS: Melatonin 3 MG TABLET 6 MG PO (22:41)
[2023-08-24] MEDS: traZODone HCL 50 MG TABLET PO (22:50)
[2023-08-25 07:59] VITALS: BP 91/55; PULSE 64; RESP 14; TEMP 36.4; O2SAT 100
[2023-08-25] MEDS: Escitalopram Oxalate 10 MG TABLET PO (08:32)
[2023-08-25] MEDS: HaloperidoL 5 MG TABLET PO ×2 (08:32→22:45)
[2023-08-25] MEDS: busPIRone HCl 10 MG TABLET PO ×2 (08:32→22:45)
[2023-08-25] MEDS: Potassium Chloride ER 20 MEQ TAB.ER.PRT PO ×3 (08:32→22:45)
[2023-08-25 08:43] LABS: Anion Gap 16 (12-20); Blood Urea Nitrogen 8 mg/dL (9-16); Calcium 11.3 mg/dL (8.4-10.2); Carbon Dioxide 29 mmol/L (22-29); Chloride 97 mmol/L (96-108); Creatinine Clr Calc Pharmacy 53.2; Estimated Glomerular Filt Rate 49; Glucose Random 146 mg/dL (60-115); Potassium 2.9 mmol/L (3.3-5.1); Sodium 139 mmol/L (135-145)
--- NOTE | 2023-08-25 08:53 | P.PNPSI_ITS ---
Subjective Subjective Date of Service: 08/25/23 Reason For Visit: Depression Subjective Notes: Conditional Voluntary Interim History: Reviewed with Dr. Dai. Keeping to self, isolating in room. Pt reports feeling anxious and depressed today; pt stated, I'm staying in my room because it makes me anxious to be around people. I'm trying to eat more while I'm here but I did vomit twice yesterday . Pt reports having craving to drink alcohol; she reports hx of taking naltrexone and vivitrol; expressed interest in restarting either; pt to be seen by Ivis Castillo NP tomorrow. Critical lab this morning, Potassium 2.9; hospitalist notified and increased Potassium Chloride 20meq PO TID; labs to be redrawn tomorrow. Medication Compliance: Yes Side effects from medications: No Attending Groups: No Review of Systems Constitutional: Reports as per HPI Eyes: Reports as per HPI Reports as per HPI Cardiovascular: Reports as per HPI Respiratory: Reports as per HPI Gastrointestinal: Reports as per HPI Musculoskeletal: Reports as per HPI Skin/Breast: Reports as per HPI Reports as per HPI Psychiatric: Reports as per HPI Endocrine: Reports as per HPI Hematologic/Lymphatic: Reports as per HPI Allergic/Immunologic: Reports as per HPI Mental Status Exam Mental Status Exam Narrative: Pt is alert and oriented; behavior is cooperative and calm; dressed in casual attire; mood is described as depressed and anxious ; eye contact appropriate; Speech is normal rate, volume and prosody and not pressured; thought process is organized and goal directed; Thought content is on tx; otherwise pertinent to relevant topics and without any delusional content, paranoid ideations or grandiosity; denies SI/HI/VH/AH. Diagnostics Vital Signs (24Hr): Vital Signs - 24 hr 08/24/23 21:00 08/25/23 07:59 Temperature 97.4 F 97.6 F Pulse Rate 58 64 Respiratory Rate 16 14 Blood Pressure 97/56 L 91/55 L Pulse Oximetry 100 100 Oxygen Delivery Method Room Air Room Air BMI result Body Mass Index 18.9 Labs 08/25/23 08:05 Labs: Laboratory Results - last 48 hr 08/24/23 08/25/23 08:02 08:05 Sodium 139 139 Potassium 3.1 L 2.9 L* Chloride 98 97 Carbon Dioxide 29 29 Anion Gap 15 16 BUN 6 L 8 L Creatinine 1.00 1.27 Estim Creat Clear Calc 67.7 53.2 Estimated GFR > 60 49 Random Glucose 146 H Fasting Glucose 92 Estimat Average Glucose 100 Hemoglobin A1c % 5.1 Calcium 10.7 H D 11.3 H Magnesium 1.9 Total Bilirubin 0.4 AST 18 ALT 6 Alkaline Phosphatase 57 Total Protein 7.2 Albumin 5.2 H Triglycerides 211 H Cholesterol 133 LDL Cholesterol, Calc 55 HDL Cholesterol 36 L Vitamin B12 796 TSH 0.87 Medications Medications Current Medications Acetaminophen (Acetaminophen 325 Mg Tablet) 650 mg PO Q6H PRN PRN Reason: Headache/Pain Mild Scale (1-3) Last Admin: 08/24/23 21:04 Dose: 650 mg Al Hydroxide/Mg Hydroxide (Magnesium Hydrox/Alum Hydrox 30 Ml Oral.Susp) 30 ml PO Q6H PRN PRN Reason: Heartburn/Nausea Benztropine Mesylate (Benztropine Mesylate 0.5 Mg Tablet) 0.5 mg PO BEDTIME [facility] Last Admin: 08/24/23 22:41 Dose: 0.5 mg Buspirone HCl (Buspirone Hcl 10 Mg Tablet) 10 mg PO BID [facility] Last Admin: 08/25/23 08:32 Dose: 10 mg Escitalopram Oxalate (Escitalopram Oxalate 10 Mg Tablet) 10 mg PO DAILY [facility] Last Admin: 08/25/23 08:32 Dose: 10 mg Haloperidol (Haloperidol 5 Mg Tablet) 5 mg PO BID [facility] Last Admin: 08/25/23 08:32 Dose: 5 mg Hydroxyzine HCl (Hydroxyzine Hcl 50 Mg Tablet) 50 mg PO Q6H PRN PRN Reason: Anxiety Last Admin: 08/24/23 21:05 Dose: 50 mg Loperamide HCl (Loperamide Hcl 2 Mg Capsule) 2 mg PO Q4H PRN PRN Reason: diarrhea Last Admin: 08/23/23 21:12 Dose: 2 mg Magnesium Hydroxide (Milk Of Magnesia 30 Ml Oral.Susp) 30 ml PO DAILY PRN PRN Reason: Constipation Melatonin (Melatonin 3 Mg Tablet) 6 mg PO BEDTIME [facility] Last Admin: 08/24/23 22:41 Dose: 6 mg Potassium Chloride (Potassium Chloride Er 20 Meq Tab.Er.Prt) 20 meq PO DAILY [facility] Last Admin: 08/25/23 08:32 Dose: 20 meq Trazodone HCl (Trazodone Hcl 50 Mg Tablet) 50 mg PO BEDTIME MRX1 PRN PRN Reason: Insomnia Last Admin: 08/24/23 22:50 Dose: 50 mg Allergies Allergies Allergy/AdvReac Type Severity Reaction Status Date / Time bee pollen [bee stings] Allergy Anaphylaxis Verified 08/21/23 10:05 Assessment & Plan Assessment & Plan (1) MDD (major depressive disorder), recurrent episode, severe: Status: Acute Code(s): F33.2 - Major depressive disorder, recurrent severe without psychotic features (2) PTSD (post-traumatic stress disorder): Status: Acute Code(s): F43.10 - Post-traumatic stress disorder, unspecified (3) Alcohol use disorder: Status: Acute Code(s): F10.90 - Alcohol use, unspecified, uncomplicated (4) Anorexia nervosa: Status: Acute Code(s): F50.00 - Anorexia nervosa, unspecified Plan Patient is a 32 year old female with hx of MDD, PTSD, alcohol use d/o and anorexia, who was admitted to [facility] diagnosis unit for depression and suicidal ideation on 08/17/23; while there pt had a syncopal episode which she hit her face and head on a counter. Pt was transferred to [facility] ER on 08/21/23 and admitted medically for treatment of hypokalema and SERA d/t anorexia and reduced PO intake. Pt was medically cleared and transferred to for psychiatric treatment on 08/23/23. Plan: CV 5 minute safety checks obtain collateral Monitor labs addiction consult discharge planning Start: Lexapro 10mg PO daily Haldol 5mg PO BID Cogentin 0.5mg PO bedtime Buspar 10mg PO BID 08/24: Keeping to self, isolating in room. Pt reports feeling anxious and depressed today; pt stated, I'm staying in my room because it makes me anxious to be around people. I'm trying to eat more while I'm here but I did vomit twice yesterday . Pt reports having craving to drink alcohol; she reports hx of taking naltrexone and vivitrol; expressed interest in restarting either; pt to be seen by Ivis Castillo NP tomorrow. Critical lab this morning, Potassium 2.9; hospitalist notified and increased Potassium Chloride 20meq PO TID; labs to be redrawn tomorrow. Patient educated on: diagnosis, medication risk/benefits, substance abuse and therapeutic strategies Informed Consent: understands Reason for continued inpatient stay Substantial Risk for: med/psych decompensation Time Spent With Patient Time: Total time managing care of this patient today _20___ minutes.
[2023-08-25] MEDS: Acetaminophen 325 MG TABLET 650 MG PO (10:06)
--- NOTE | 2023-08-25 13:13 | PC.NURSE ---
Lab called with a critical result. Potassium 2.9. Daily Potassium 20Meq increased to TID per hospitalist. Provider notified.
[2023-08-25] MEDS: hydrOXYzine HCL 50 MG TABLET PO (17:00)
[2023-08-25 20:17] VITALS: BP 91/52; PULSE 53; RESP 16; TEMP 36.6; O2SAT 99
[2023-08-25 22:30] VITALS: BP 98/56; PULSE 56; RESP 16; TEMP 36.7; O2SAT 100
[2023-08-25] MEDS: Melatonin 3 MG TABLET 6 MG PO (22:44)
[2023-08-25] MEDS: Benztropine Mesylate 0.5 MG TABLET PO (22:44)
[2023-08-25] MEDS: traZODone HCL 50 MG TABLET PO (22:45)
[2023-08-26 07:00] VITALS: BMI 18.8
[2023-08-26 08:00] VITALS: BP 87/50; PULSE 52; RESP 14; TEMP 36.6; O2SAT 98
[2023-08-26] MEDS: busPIRone HCl 10 MG TABLET PO ×2 (08:41→21:32)
[2023-08-26] MEDS: Escitalopram Oxalate 10 MG TABLET PO (08:41)
[2023-08-26] MEDS: HaloperidoL 5 MG TABLET PO ×2 (08:42→21:33)
[2023-08-26] MEDS: Potassium Chloride ER 20 MEQ TAB.ER.PRT PO ×3 (08:42→21:33)
[2023-08-26 08:50] LABS: Alanine Aminotransferase 7 U/L (0-31); Albumin Level 4.7 g/dL (3.5-5.0); Alkaline Phosphatase 56 U/L (39-117); Anion Gap 15 (12-20); Aspartate Amino Transferase 14 U/L (5-31); Bilirubin Direct 0.1 mg/dL (0.0-0.5); Bilirubin Total 0.4 mg/dL (0.0-1.0); Blood Urea Nitrogen 9 mg/dL (9-16); Calcium 10.4 mg/dL (8.4-10.2); Carbon Dioxide 31 mmol/L (22-29); Chloride 100 mmol/L (96-108); Estimated Glomerular Filt Rate 53; Glucose Fasting 80 mg/dL (60-99); Magnesium 1.7 mg/dL (1.6-2.6); Potassium 3.5 mmol/L (3.3-5.1); Sodium 142 mmol/L (135-145); Total Protein 6.7 g/dL (6.5-8.0)
[2023-08-26] MEDS: hydrOXYzine HCL 50 MG TABLET PO (09:02)
[2023-08-26] MEDS: Acetaminophen 325 MG TABLET 650 MG PO (09:02)
--- NOTE | 2023-08-26 09:39 | P.PNPSI_ITS ---
Subjective Subjective Date of Service: 08/26/23 Reason For Visit: Depression Subjective Notes: Conditional Voluntary Interim History: Reviewed with Dr. Dai. Pt continues to report feeling anxious and depressed ; pt stated, I'm feeling the same. I hate being locked up so it makes me sad. I'm willing to go to any eating disorder program in the state . Pt reported purging once yesterday. denies SI/HI/VH/AH. Pt seen by Ivis Castillo NP for addiction consult; started on Naltrexone, please see note. Potassium 3.5 on 08/26/23. Start: folic acid 1mg PO daily multivitamin 1 tab PO daily thiamine 50mg PO daily Zofran 8mg PO Q12HR PRN Medication Compliance: Yes Side effects from medications: No Attending Groups: No Review of Systems Constitutional: Reports as per HPI Eyes: Reports as per HPI Reports as per HPI Cardiovascular: Reports as per HPI Respiratory: Reports as per HPI Gastrointestinal: Reports as per HPI Musculoskeletal: Reports as per HPI Skin/Breast: Reports as per HPI Reports as per HPI Psychiatric: Reports as per HPI Endocrine: Reports as per HPI Hematologic/Lymphatic: Reports as per HPI Allergic/Immunologic: Reports as per HPI Mental Status Exam Mental Status Exam Narrative: Pt is alert and oriented; behavior is cooperative and calm; dressed in casual attire; mood is described as depressed and anxious ; eye contact appropriate; Speech is normal rate, volume and prosody and not pressured; thought process is organized and goal directed; Thought content is on tx; otherwise pertinent to relevant topics and without any delusional content, paranoid ideations or grandiosity; denies SI/HI/VH/AH. Diagnostics Vital Signs (24Hr): Vital Signs - 24 hr 08/25/23 20:17 08/25/23 22:30 08/26/23 08:00 Temperature 97.8 F 98.1 F 97.8 F Pulse Rate 53 56 52 Respiratory Rate 16 16 14 Blood Pressure 91/52 L 98/56 L 87/50 L Pulse Oximetry 99 100 98 Oxygen Delivery Method Room Air Room Air Room Air BMI result Body Mass Index 18.8 Labs 08/26/23 08:21 Labs: Laboratory Results - last 48 hr 08/25/23 08/26/23 08:05 08:21 Sodium 139 142 Potassium 2.9 L* 3.5 D Chloride 97 100 Carbon Dioxide 29 31 H Anion Gap 16 15 BUN 8 L 9 Creatinine 1.27 1.18 Estim Creat Clear Calc 53.2 57.0 Estimated GFR 49 53 Random Glucose 146 H Fasting Glucose 80 Calcium 11.3 H 10.4 H D Magnesium 1.7 Total Bilirubin 0.4 Direct Bilirubin 0.1 AST 14 ALT 7 Alkaline Phosphatase 56 Total Protein 6.7 Albumin 4.7 Medications Medications Current Medications Acetaminophen (Acetaminophen 325 Mg Tablet) 650 mg PO Q6H PRN PRN Reason: Headache/Pain Mild Scale (1-3) Last Admin: 08/26/23 09:02 Dose: 650 mg Al Hydroxide/Mg Hydroxide (Magnesium Hydrox/Alum Hydrox 30 Ml Oral.Susp) 30 ml PO Q6H PRN PRN Reason: Heartburn/Nausea Benztropine Mesylate (Benztropine Mesylate 0.5 Mg Tablet) 0.5 mg PO BEDTIME [facility] Last Admin: 08/25/23 22:44 Dose: 0.5 mg Buspirone HCl (Buspirone Hcl 10 Mg Tablet) 10 mg PO BID [facility] Last Admin: 08/26/23 08:41 Dose: 10 mg Escitalopram Oxalate (Escitalopram Oxalate 10 Mg Tablet) 10 mg PO DAILY [facility] Last Admin: 08/26/23 08:41 Dose: 10 mg Haloperidol (Haloperidol 5 Mg Tablet) 5 mg PO BID [facility] Last Admin: 08/26/23 08:42 Dose: 5 mg Hydroxyzine HCl (Hydroxyzine Hcl 50 Mg Tablet) 50 mg PO Q6H PRN PRN Reason: Anxiety Last Admin: 08/26/23 09:02 Dose: 50 mg Loperamide HCl (Loperamide Hcl 2 Mg Capsule) 2 mg PO Q4H PRN PRN Reason: diarrhea Last Admin: 08/23/23 21:12 Dose: 2 mg Magnesium Hydroxide (Milk Of Magnesia 30 Ml Oral.Susp) 30 ml PO DAILY PRN PRN Reason: Constipation Melatonin (Melatonin 3 Mg Tablet) 6 mg PO BEDTIME [facility] Last Admin: 08/25/23 22:44 Dose: 6 mg Potassium Chloride (Potassium Chloride Er 20 Meq Tab.Er.Prt) 20 meq PO TID [facility] Last Admin: 08/26/23 08:42 Dose: 20 meq Trazodone HCl (Trazodone Hcl 50 Mg Tablet) 50 mg PO BEDTIME MRX1 PRN PRN Reason: Insomnia Last Admin: 08/25/23 22:45 Dose: 50 mg Allergies Allergies Allergy/AdvReac Type Severity Reaction Status Date / Time bee pollen [bee stings] Allergy Anaphylaxis Verified 08/21/23 10:05 Assessment & Plan Assessment & Plan (1) MDD (major depressive disorder), recurrent episode, severe: Status: Acute Code(s): F33.2 - Major depressive disorder, recurrent severe without psychotic features (2) PTSD (post-traumatic stress disorder): Status: Acute Code(s): F43.10 - Post-traumatic stress disorder, unspecified (3) Alcohol use disorder: Status: Acute Code(s): F10.90 - Alcohol use, unspecified, uncomplicated (4) Anorexia nervosa: Status: Acute Code(s): F50.00 - Anorexia nervosa, unspecified Plan Patient is a 32 year old female with hx of MDD, PTSD, alcohol use d/o and anorexia, who was admitted to [facility] diagnosis unit for depression and suicidal ideation on 08/17/23; while there pt had a syncopal episode which she hit her face and head on a counter. Pt was transferred to [facility] ER on 08/21/23 and admitted medically for treatment of hypokalema and SERA d/t anorexia and reduced PO intake. Pt was medically cleared and transferred to for psychiatric treatment on 08/23/23. Plan: CV 5 minute safety checks obtain collateral Monitor labs addiction consult discharge planning Start: Lexapro 10mg PO daily Haldol 5mg PO BID Cogentin 0.5mg PO bedtime Buspar 10mg PO BID 08/24: Keeping to self, isolating in room. Pt reports feeling anxious and depressed today; pt stated, I'm staying in my room because it makes me anxious to be around people. I'm trying to eat more while I'm here but I did vomit twice yesterday . Pt reports having craving to drink alcohol; she reports hx of taking naltrexone and vivitrol; expressed interest in restarting either; pt to be seen by Ivis Castillo NP tomorrow. Critical lab this morning, Potassium 2.9; hospitalist notified and increased Potassium Chloride 20meq PO TID; labs to be redrawn tomorrow. 08/25: Pt continues to report feeling anxious and depressed ; pt stated, I'm feeling the same. I hate being locked up so it makes me sad. I'm willing to go to any eating disorder program in the state . Pt reported purging once yesterday. denies SI/HI/VH/AH. Pt seen by Ivis Castillo NP for addiction consult; started on Naltrexone, please see note. Potassium 3.5 on 08/26/23. Start: folic acid 1mg PO daily multivitamin 1 tab PO daily thiamine 50mg PO daily Zofran 8mg PO Q12HR PRN Patient educated on: diagnosis, medication risk/benefits, substance abuse and therapeutic strategies Informed Consent: understands Reason for continued inpatient stay Substantial Risk for: med/psych decompensation Time Spent With Patient Time: Total time managing care of this patient today _20___ minutes.
--- NOTE | 2023-08-26 10:53 | HO.ADDICT_ITS ---
History of Present Illness Date of Service: 08/26/2023 Chief Complaint: Depression Reason for Consult: alcohol use disorder Sources of Information: patient interviewed and chart reviewed HPI Narrative: Patient with diagnosis of eating disorder and alcohol use disorder currently admitted to unit with worsening depression and suicidal ideation. Consult requested to discuss resources for alcohol use disorder, including medications. Patient seen in room 307. Laying in bed, awake, alert, pleasant and engaged in interview. Reporting that prior to admission she was drinking 15-18 nips daily. No withdrawal sx noted or reported. --prior to admission on unit, patient was medically admitted for electrolyte abnormalities. She has been drinking for several years with periods of recovery (1.5 yrs about 5 years ago) and periods of decreased intake. She has had several admissions to [facility] level of care and has also taken Naltrexone and Vivitrol, which she found helpful to address cravings. Denies any other substance use Past Psychiatric History: Multiple detox admissions. hx of admissions to [facility] eating disorder unit, [facility] hx of SA at age 16; OD on Tylenol. Review of Systems Constitutional: Reports as per HPI and Reports no additional constitutional complaints Diagnostics Vital Signs (24Hr): Vital Signs - 24 hr 08/25/23 20:17 08/25/23 22:30 08/26/23 08:00 Temperature 97.8 F 98.1 F 97.8 F Pulse Rate 53 56 52 Respiratory Rate 16 16 14 Blood Pressure 91/52 L 98/56 L 87/50 L Pulse Oximetry 99 100 98 Oxygen Delivery Method Room Air Room Air Room Air BMI result Body Mass Index 18.8 Labs 08/26/23 08:21 Labs: Laboratory Results - last 48 hr 08/25/23 08/26/23 08:05 08:21 Sodium 139 142 Potassium 2.9 L* 3.5 D Chloride 97 100 Carbon Dioxide 29 31 H Anion Gap 16 15 BUN 8 L 9 Creatinine 1.27 1.18 Estim Creat Clear Calc 53.2 57.0 Estimated GFR 49 53 Random Glucose 146 H Fasting Glucose 80 Calcium 11.3 H 10.4 H D Magnesium 1.7 Total Bilirubin 0.4 Direct Bilirubin 0.1 AST 14 ALT 7 Alkaline Phosphatase 56 Total Protein 6.7 Albumin 4.7 Mental Status Exam Mental Status Exam Patient Appearance: Appropriate Level of Consciousness: Awake and Alert Patient Behavior: Talkative Mood Description: Calm Affect Description: Calm Speech Pattern: Clear Judgement: Fair Medications Medications Current Medications Acetaminophen (Acetaminophen 325 Mg Tablet) 650 mg PO Q6H PRN PRN Reason: Headache/Pain Mild Scale (1-3) Last Admin: 08/26/23 09:02 Dose: 650 mg Al Hydroxide/Mg Hydroxide (Magnesium Hydrox/Alum Hydrox 30 Ml Oral.Susp) 30 ml PO Q6H PRN PRN Reason: Heartburn/Nausea Benztropine Mesylate (Benztropine Mesylate 0.5 Mg Tablet) 0.5 mg PO BEDTIME [facility] Last Admin: 08/25/23 22:44 Dose: 0.5 mg Buspirone HCl (Buspirone Hcl 10 Mg Tablet) 10 mg PO BID [facility] Last Admin: 08/26/23 08:41 Dose: 10 mg Escitalopram Oxalate (Escitalopram Oxalate 10 Mg Tablet) 10 mg PO DAILY [facility] Last Admin: 08/26/23 08:41 Dose: 10 mg Haloperidol (Haloperidol 5 Mg Tablet) 5 mg PO BID [facility] Last Admin: 08/26/23 08:42 Dose: 5 mg Hydroxyzine HCl (Hydroxyzine Hcl 50 Mg Tablet) 50 mg PO Q6H PRN PRN Reason: Anxiety Last Admin: 08/26/23 09:02 Dose: 50 mg Loperamide HCl (Loperamide Hcl 2 Mg Capsule) 2 mg PO Q4H PRN PRN Reason: diarrhea Last Admin: 08/23/23 21:12 Dose: 2 mg Magnesium Hydroxide (Milk Of Magnesia 30 Ml Oral.Susp) 30 ml PO DAILY PRN PRN Reason: Constipation Melatonin (Melatonin 3 Mg Tablet) 6 mg PO BEDTIME [facility] Last Admin: 08/25/23 22:44 Dose: 6 mg Potassium Chloride (Potassium Chloride Er 20 Meq Tab.Er.Prt) 20 meq PO TID [facility] Last Admin: 08/26/23 08:42 Dose: 20 meq Trazodone HCl (Trazodone Hcl 50 Mg Tablet) 50 mg PO BEDTIME MRX1 PRN PRN Reason: Insomnia Last Admin: 08/25/23 22:45 Dose: 50 mg Allergies Allergies Allergy/AdvReac Type Severity Reaction Status Date / Time bee pollen [bee stings] Allergy Anaphylaxis Verified 08/21/23 10:05 Assessment & Plan Assessment & Plan (1) Alcohol use disorder: Status: Acute Code(s): F10.90 - Alcohol use, unspecified, uncomplicated Assessment and Plan: * would like to restart Naltrexone PO, with plan to have Vivitrol once discharged at previous care provider * reviewed side effects, dosing, goals of treatment --patient familiar with medication * recommend daily B1 and folic acid rhonda given already impaired nutritional status * no follow up indicated unless requested by patient Total time managing care of this patient today __30__ minutes. [facility] Social History Social History Household Members: Family Housing: House Do you presently have visiting nurse or other home services: No Comment: pt refusing fall precautions and alarms Patient Tobacco Use Status: Former Tobacco user Use of substances other than those prescribed or required for medical reasons: No Currently Displaying Signs/Symptoms of Drug Intoxication Withdrawal: No Any prior treatment program specific to substance use: Yes Have you been hit, kicked, punched, or otherwise hurt by someone within the past year? If so, by whom?: No Do you feel safe in your current relationship?: No Current Relationship Is there a partner from a previous relationship who is making you feel unsafe now?: No Are you made to feel afraid or neglected: No Advance Directives: No Advance Directives Information Provided: No Do you have thoughts of harming others: None Do you have a plan to hurt others: No Plan Recently lost weight without trying: No Eating poorly because of decreased appetite: No Nutrition Risks: Anorexia Patient : No : No Poor oral hygiene: No service: No Sexual orientation: Don't Know
[2023-08-26] MEDS: Naltrexone HCl 50 MG TABLET 25 MG PO (13:19)
[2023-08-26 20:00] VITALS: BP 90/54; PULSE 56; RESP 14; O2SAT 100
[2023-08-26] MEDS: traZODone HCL 50 MG TABLET PO (21:32)
[2023-08-26] MEDS: Melatonin 3 MG TABLET 6 MG PO (21:32)
[2023-08-26] MEDS: Benztropine Mesylate 0.5 MG TABLET PO (21:33)
[2023-08-27 07:53] VITALS: BP 82/48; PULSE 86; RESP 12; TEMP 36.9; O2SAT 96
[2023-08-27 08:37] VITALS: BP 79/44; PULSE 60
[2023-08-27] MEDS: Acetaminophen 325 MG TABLET 650 MG PO ×2 (09:01→20:24)
[2023-08-27] MEDS: Folic Acid 1 MG TABLET PO (09:03)
[2023-08-27] MEDS: busPIRone HCl 10 MG TABLET PO ×2 (09:03→22:11)
[2023-08-27] MEDS: HaloperidoL 5 MG TABLET PO ×2 (09:03→22:11)
[2023-08-27] MEDS: Potassium Chloride ER 20 MEQ TAB.ER.PRT PO ×3 (09:03→22:11)
[2023-08-27] MEDS: Multivitamin TABLET 1 TAB PO (09:04)
[2023-08-27] MEDS: Escitalopram Oxalate 10 MG TABLET PO (09:04)
[2023-08-27] MEDS: Naltrexone HCl 50 MG TABLET 25 MG PO (09:06)
[2023-08-27] MEDS: Thiamine HCL 100 MG TABLET 50 MG PO (09:06)
--- NOTE | 2023-08-27 09:17 | P.PNPSI_ITS ---
Subjective Subjective Date of Service: 08/27/23 Reason For Visit: Depression Subjective Notes: Conditional Voluntary Interim History: Reviewed with Dr. Dai. Pt reports feeling anxious and depressed ; Pt reported purging once yesterday; she agreed and signed to behavioral plan of having locked bathroom to prevent vomiting numerous times during the day. Discussed importance of staying hydrated; will continue to monitor vitals and labs.pt denies SI/HI/VH/AH. pt is on wait list for [facility]. Medication Compliance: Yes Side effects from medications: No Attending Groups: No Review of Systems Constitutional: Reports as per HPI Eyes: Reports as per HPI Reports as per HPI Cardiovascular: Reports as per HPI Respiratory: Reports as per HPI Gastrointestinal: Reports as per HPI Musculoskeletal: Reports as per HPI Skin/Breast: Reports as per HPI Reports as per HPI Psychiatric: Reports as per HPI Endocrine: Reports as per HPI Hematologic/Lymphatic: Reports as per HPI Allergic/Immunologic: Reports as per HPI Mental Status Exam Mental Status Exam Narrative: Pt is alert and oriented; behavior is irritable; dressed in casual attire; mood is described as depressed and anxious ; eye contact appropriate; Speech is normal rate, volume and prosody and not pressured; thought process is organized and goal directed; Thought content is on tx; otherwise pertinent to relevant topics and without any delusional content, paranoid ideations or grandiosity; denies SI/HI/VH/AH. Diagnostics Vital Signs (24Hr): Vital Signs - 24 hr 08/26/23 20:00 08/27/23 07:53 Temperature 98.4 F Pulse Rate 56 86 Respiratory Rate 14 12 Blood Pressure 90/54 L 82/48 L Pulse Oximetry 100 96 Oxygen Delivery Method Room Air Room Air BMI result Body Mass Index 18.8 Labs 08/26/23 08:21 Labs: Laboratory Results - last 48 hr 08/26/23 08:21 Sodium 142 Potassium 3.5 D Chloride 100 Carbon Dioxide 31 H Anion Gap 15 BUN 9 Creatinine 1.18 Estim Creat Clear Calc 57.0 Estimated GFR 53 Fasting Glucose 80 Calcium 10.4 H D Magnesium 1.7 Total Bilirubin 0.4 Direct Bilirubin 0.1 AST 14 ALT 7 Alkaline Phosphatase 56 Total Protein 6.7 Albumin 4.7 Medications Medications Current Medications Acetaminophen (Acetaminophen 325 Mg Tablet) 650 mg PO Q6H PRN PRN Reason: Headache/Pain Mild Scale (1-3) Last Admin: 08/27/23 09:01 Dose: 650 mg Al Hydroxide/Mg Hydroxide (Magnesium Hydrox/Alum Hydrox 30 Ml Oral.Susp) 30 ml PO Q6H PRN PRN Reason: Heartburn/Nausea Benztropine Mesylate (Benztropine Mesylate 0.5 Mg Tablet) 0.5 mg PO BEDTIME [facility] Last Admin: 08/26/23 21:33 Dose: 0.5 mg Buspirone HCl (Buspirone Hcl 10 Mg Tablet) 10 mg PO BID [facility] Last Admin: 08/27/23 09:03 Dose: 10 mg Escitalopram Oxalate (Escitalopram Oxalate 10 Mg Tablet) 10 mg PO DAILY [facility] Last Admin: 08/27/23 09:04 Dose: 10 mg Folic Acid (Folic Acid 1 Mg Tablet) 1 mg PO DAILY [facility] Last Admin: 08/27/23 09:03 Dose: 1 mg Haloperidol (Haloperidol 5 Mg Tablet) 5 mg PO BID [facility] Last Admin: 08/27/23 09:03 Dose: 5 mg Hydroxyzine HCl (Hydroxyzine Hcl 50 Mg Tablet) 50 mg PO Q6H PRN PRN Reason: Anxiety Last Admin: 08/26/23 09:02 Dose: 50 mg Loperamide HCl (Loperamide Hcl 2 Mg Capsule) 2 mg PO Q4H PRN PRN Reason: diarrhea Last Admin: 08/23/23 21:12 Dose: 2 mg Magnesium Hydroxide (Milk Of Magnesia 30 Ml Oral.Susp) 30 ml PO DAILY PRN PRN Reason: Constipation Melatonin (Melatonin 3 Mg Tablet) 6 mg PO BEDTIME [facility] Last Admin: 08/26/23 21:32 Dose: 6 mg Multivitamins/Vitamin C (Multivitamin Tablet) 1 tab PO DAILY [facility] Last Admin: 08/27/23 09:04 Dose: 1 tab Naltrexone HCl (Naltrexone Hcl 50 Mg Tablet) 25 mg PO DAILY [facility] Stop: 08/28/23 09:01 Last Admin: 08/27/23 09:06 Dose: 25 mg Naltrexone HCl (Naltrexone Hcl 50 Mg Tablet) 50 mg PO DAILY [facility] Ondansetron HCl (Ondansetron Odt 8 Mg Tab.Rapdis) 8 mg TRANSLINGU Q12H PRN PRN Reason: Nausea and Vomiting Potassium Chloride (Potassium Chloride Er 20 Meq Tab.Er.Prt) 20 meq PO TID [facility] Last Admin: 08/27/23 09:03 Dose: 20 meq Thiamine HCl (Thiamine Hcl 100 Mg Tablet) 50 mg PO DAILY [facility] Last Admin: 08/27/23 09:06 Dose: 50 mg Trazodone HCl (Trazodone Hcl 50 Mg Tablet) 50 mg PO BEDTIME [facility] PRN PRN Reason: Insomnia Last Admin: 08/26/23 21:32 Dose: 50 mg Allergies Allergies Allergy/AdvReac Type Severity Reaction Status Date / Time bee pollen [bee stings] Allergy Anaphylaxis Verified 08/21/23 10:05 Assessment & Plan Assessment & Plan (1) MDD (major depressive disorder), recurrent episode, severe: Status: Acute Code(s): F33.2 - Major depressive disorder, recurrent severe without psychotic features (2) PTSD (post-traumatic stress disorder): Status: Acute Code(s): F43.10 - Post-traumatic stress disorder, unspecified (3) Alcohol use disorder: Status: Acute Code(s): F10.90 - Alcohol use, unspecified, uncomplicated (4) Anorexia nervosa: Status: Acute Code(s): F50.00 - Anorexia nervosa, unspecified Plan Patient is a 32 year old female with hx of MDD, PTSD, alcohol use d/o and anorexia, who was admitted to [facility] diagnosis unit for depression and suicidal ideation on 08/17/23; while there pt had a syncopal episode which she hit her face and head on a counter. Pt was transferred to [facility] ER on 08/21/23 and admitted medically for treatment of hypokalema and SERA d/t anorexia and reduced PO intake. Pt was medically cleared and transferred to for psychiatric treatment on 08/23/23. Plan: CV 5 minute safety checks obtain collateral Monitor labs addiction consult discharge planning Start: Lexapro 10mg PO daily Haldol 5mg PO BID Cogentin 0.5mg PO bedtime Buspar 10mg PO BID 08/24: Keeping to self, isolating in room. Pt reports feeling anxious and depressed today; pt stated, I'm staying in my room because it makes me anxious to be around people. I'm trying to eat more while I'm here but I did vomit twice yesterday . Pt reports having craving to drink alcohol; she reports hx of taking naltrexone and vivitrol; expressed interest in restarting either; pt to be seen by Ivis Castillo NP tomorrow. Critical lab this morning, Potassium 2.9; hospitalist notified and increased Potassium Chloride 20meq PO TID; labs to be redrawn tomorrow. 08/25: Pt continues to report feeling anxious and depressed ; pt stated, I'm feeling the same. I hate being locked up so it makes me sad. I'm willing to go to any eating disorder program in the state . Pt reported purging once yesterday. denies SI/HI/VH/AH. Pt seen by Ivis Castillo NP for addiction consult; started on Naltrexone, please see note. Potassium 3.5 on 08/26/23. Start: folic acid 1mg PO daily multivitamin 1 tab PO daily thiamine 50mg PO daily Zofran 8mg PO Q12HR PRN 08/26: Pt reports feeling anxious and depressed ; Pt reported purging once yesterday; she agreed and signed to behavioral plan of having locked bathroom to prevent vomiting numerous times during the day. Discussed importance of staying hydrated; will continue to monitor vitals and labs.pt denies SI/HI/VH/AH. pt is on wait list for [facility]. Patient educated on: diagnosis, medication risk/benefits and therapeutic strategies Informed Consent: understands Reason for continued inpatient stay Substantial Risk for: med/psych decompensation Time Spent With Patient Time: Total time managing care of this patient today _20___ minutes.
[2023-08-27] MEDS: hydrOXYzine HCL 50 MG TABLET PO ×2 (12:05→22:11)
[2023-08-27 13:02] VITALS: BP 105/60; PULSE 68; RESP 16; TEMP 36.5; O2SAT 97
[2023-08-27 19:59] VITALS: BP 89/57; PULSE 52; RESP 18; TEMP 36.4; O2SAT 100
[2023-08-27] MEDS: Benztropine Mesylate 0.5 MG TABLET PO (22:11)
[2023-08-27] MEDS: traZODone HCL 50 MG TABLET PO (23:22)
[2023-08-27] MEDS: Melatonin 3 MG TABLET 6 MG PO (23:22)
--- NOTE | 2023-08-28 | ECG_ITS ---
Test Reason : Hypokalemia Blood Pressure : / mmHG Vent. Rate : 049 BPM Atrial Rate : 049 BPM P-R Int : 138 ms QRS Dur : 084 ms QT Int : 496 ms P-R-T Axes : 053 084 061 degrees QTc Int : 448 ms Sinus bradycardia Otherwise normal ECG When compared with ECG of 24-AUG-2023 10:07, No significant change was found Referred By: Sincere Morrissey Electronically Signed By:John Echevarria
[2023-08-28 07:42] VITALS: BP 86/52; PULSE 77; RESP 16; TEMP 36.5; O2SAT 100
--- NOTE | 2023-08-28 08:51 | HO.PSYCHPN ---
Subjective Subjective Date of Service: 08/28/23 Reason For Visit: Depression Interim History: Patient continues to purge although reportedly eats 50-75% of her meals. She is on 5 min checks with locked BR. Her BP is on the low side but patient denies any symptoms. Her K was 2.9. Discussed with patient that we will repeat K tomorrow and if it is still low, may need to resume 1:1 observation. May need to restrict her from BR for up to 1 hour after meals. Discussed importance of staying hydrated; will continue to monitor vitals and labs.pt denies SI/HI/VH/AH. pt is on wait list for [facility]. Review of Systems Constitutional: Reports as per HPI and Reports no additional constitutional complaints Eyes: Reports as per HPI Reports as per HPI Cardiovascular: Reports as per HPI Respiratory: Reports as per HPI Gastrointestinal: Reports as per HPI Musculoskeletal: Reports as per HPI Skin/Breast: Reports as per HPI Reports as per HPI Psychiatric: Reports as per HPI Endocrine: Reports as per HPI Hematologic/Lymphatic: Reports as per HPI Allergic/Immunologic: Reports as per HPI Mental Status Exam Mental Status Exam Narrative: Pt is alert and oriented; behavior is irritable; dressed in casual attire; mood is described as depressed and anxious ; eye contact appropriate; Speech is normal rate, volume and prosody and not pressured; thought process is organized and goal directed; Thought content is on tx; otherwise pertinent to relevant topics and without any delusional content, paranoid ideations or grandiosity; denies SI/HI/VH/AH. Patient Appearance: Appropriate Level of Consciousness: Awake and Alert Patient Behavior: Talkative Mood Description: Calm Affect Description: Calm Speech Pattern: Clear Diagnostics Vital Signs (24Hr): Vital Signs - 24 hr 08/27/23 13:02 08/27/23 19:59 08/28/23 07:42 Temperature 97.7 F 97.6 F 97.7 F Pulse Rate 68 52 77 Respiratory Rate 16 18 16 Blood Pressure 105/60 89/57 L 86/52 L Pulse Oximetry 97 100 100 Oxygen Delivery Method Room Air Room Air Room Air BMI result Body Mass Index 18.8 Labs 08/28/23 08:51 Labs: Laboratory Results - last 48 hr 08/26/23 08:21 Sodium 142 Potassium 3.5 D Chloride 100 Carbon Dioxide 31 H Anion Gap 15 BUN 9 Creatinine 1.18 Estim Creat Clear Calc 57.0 Estimated GFR 53 Fasting Glucose 80 Calcium 10.4 H D Magnesium 1.7 Total Bilirubin 0.4 Direct Bilirubin 0.1 AST 14 ALT 7 Alkaline Phosphatase 56 Total Protein 6.7 Albumin 4.7 Medications Medications Current Medications Acetaminophen (Acetaminophen 325 Mg Tablet) 650 mg PO Q6H PRN PRN Reason: Headache/Pain Mild Scale (1-3) Last Admin: 08/27/23 20:24 Dose: 650 mg Al Hydroxide/Mg Hydroxide (Magnesium Hydrox/Alum Hydrox 30 Ml Oral.Susp) 30 ml PO Q6H PRN PRN Reason: Heartburn/Nausea Benztropine Mesylate (Benztropine Mesylate 0.5 Mg Tablet) 0.5 mg PO BEDTIME [facility] Last Admin: 08/27/23 22:11 Dose: 0.5 mg Buspirone HCl (Buspirone Hcl 10 Mg Tablet) 10 mg PO BID [facility] Last Admin: 08/27/23 22:11 Dose: 10 mg Escitalopram Oxalate (Escitalopram Oxalate 10 Mg Tablet) 10 mg PO DAILY [facility] Last Admin: 08/27/23 09:04 Dose: 10 mg Folic Acid (Folic Acid 1 Mg Tablet) 1 mg PO DAILY [facility] Last Admin: 08/27/23 09:03 Dose: 1 mg Haloperidol (Haloperidol 5 Mg Tablet) 5 mg PO BID [facility] Last Admin: 08/27/23 22:11 Dose: 5 mg Hydroxyzine HCl (Hydroxyzine Hcl 50 Mg Tablet) 50 mg PO Q6H PRN PRN Reason: Anxiety Last Admin: 08/27/23 22:11 Dose: 50 mg Loperamide HCl (Loperamide Hcl 2 Mg Capsule) 2 mg PO Q4H PRN PRN Reason: diarrhea Last Admin: 08/23/23 21:12 Dose: 2 mg Magnesium Hydroxide (Milk Of Magnesia 30 Ml Oral.Susp) 30 ml PO DAILY PRN PRN Reason: Constipation Melatonin (Melatonin 3 Mg Tablet) 6 mg PO BEDTIME [facility] Last Admin: 08/27/23 23:22 Dose: 6 mg Multivitamins/Vitamin C (Multivitamin Tablet) 1 tab PO DAILY [facility] Last Admin: 08/27/23 09:04 Dose: 1 tab Naltrexone HCl (Naltrexone Hcl 50 Mg Tablet) 25 mg PO DAILY [facility] Stop: 08/28/23 09:01 Last Admin: 08/27/23 09:06 Dose: 25 mg Naltrexone HCl (Naltrexone Hcl 50 Mg Tablet) 50 mg PO DAILY [facility] Ondansetron HCl (Ondansetron Odt 8 Mg Tab.Rapdis) 8 mg TRANSLINGU Q12H PRN PRN Reason: Nausea and Vomiting Potassium Chloride (Potassium Chloride Er 20 Meq Tab.Er.Prt) 20 meq PO TID [facility] Last Admin: 08/27/23 22:11 Dose: 20 meq Thiamine HCl (Thiamine Hcl 100 Mg Tablet) 50 mg PO DAILY [facility] Last Admin: 08/27/23 09:06 Dose: 50 mg Trazodone HCl (Trazodone Hcl 50 Mg Tablet) 50 mg PO BEDTIME [facility] PRN PRN Reason: Insomnia Last Admin: 08/27/23 23:22 Dose: 50 mg Allergies Allergies Allergy/AdvReac Type Severity Reaction Status Date / Time bee pollen [bee stings] Allergy Anaphylaxis Verified 08/21/23 10:05 Assessment & Plan Assessment & Plan (1) MDD (major depressive disorder), recurrent episode, severe: Status: Acute Code(s): F33.2 - Major depressive disorder, recurrent severe without psychotic features (2) PTSD (post-traumatic stress disorder): Status: Acute Code(s): F43.10 - Post-traumatic stress disorder, unspecified (3) Alcohol use disorder: Status: Acute Code(s): F10.90 - Alcohol use, unspecified, uncomplicated (4) Anorexia nervosa: Status: Acute Code(s): F50.00 - Anorexia nervosa, unspecified Plan Patient is a 32 year old female with hx of MDD, PTSD, alcohol use d/o and anorexia, who was admitted to [facility] diagnosis unit for depression and suicidal ideation on 08/17/23; while there pt had a syncopal episode which she hit her face and head on a counter. Pt was transferred to [facility] ER on 08/21/23 and admitted medically for treatment of hypokalema and SERA d/t anorexia and reduced PO intake. Pt was medically cleared and transferred to for psychiatric treatment on 08/23/23. Plan: CV 5 minute safety checks obtain collateral Monitor labs addiction consult discharge planning Start: Lexapro 10mg PO daily Haldol 5mg PO BID Cogentin 0.5mg PO bedtime Buspar 10mg PO BID 08/24: Keeping to self, isolating in room. Pt reports feeling anxious and depressed today; pt stated, I'm staying in my room because it makes me anxious to be around people. I'm trying to eat more while I'm here but I did vomit twice yesterday . Pt reports having craving to drink alcohol; she reports hx of taking naltrexone and vivitrol; expressed interest in restarting either; pt to be seen by Ivis Castillo NP tomorrow. Critical lab this morning, Potassium 2.9; hospitalist notified and increased Potassium Chloride 20meq PO TID; labs to be redrawn tomorrow. 08/25: Pt continues to report feeling anxious and depressed ; pt stated, I'm feeling the same. I hate being locked up so it makes me sad. I'm willing to go to any eating disorder program in the state . Pt reported purging once yesterday. denies SI/HI/VH/AH. Pt seen by Ivis Castillo NP for addiction consult; started on Naltrexone, please see note. Potassium 3.5 on 08/26/23. Start: folic acid 1mg PO daily multivitamin 1 tab PO daily thiamine 50mg PO daily Zofran 8mg PO Q12HR PRN 08/26: Pt reports feeling anxious and depressed ; Pt reported purging once yesterday; she agreed and signed to behavioral plan of having locked bathroom to prevent vomiting numerous times during the day. Discussed importance of staying hydrated; will continue to monitor vitals and labs.pt denies SI/HI/VH/AH. pt is on wait list for [facility]. 08/27: If VS and K continue abnormal, may need to increase observation and limit BR access. Medicine consulted and they recommended increase in K supplementation. Reason for continued inpatient stay Substantial Risk for: harm to self, inability to function and rapid decompensation Time Spent With Patient Time: Total time managing care of this patient today ____ minutes.
[2023-08-28] MEDS: Acetaminophen 325 MG TABLET 650 MG PO ×2 (08:55→20:36)
[2023-08-28] MEDS: Thiamine HCL 100 MG TABLET 50 MG PO (08:56)
[2023-08-28] MEDS: Naltrexone HCl 50 MG TABLET 25 MG PO (08:57)
[2023-08-28] MEDS: Multivitamin TABLET 1 TAB PO (08:58)
[2023-08-28] MEDS: HaloperidoL 5 MG TABLET PO ×2 (08:59→21:55)
[2023-08-28] MEDS: Potassium Chloride ER 20 MEQ TAB.ER.PRT PO ×2 (08:59→15:39)
[2023-08-28] MEDS: busPIRone HCl 10 MG TABLET PO ×2 (08:59→21:55)
[2023-08-28] MEDS: Escitalopram Oxalate 10 MG TABLET PO (08:59)
[2023-08-28] MEDS: Folic Acid 1 MG TABLET PO (08:59)
[2023-08-28 09:44] LABS: Anion Gap 15 (12-20); Blood Urea Nitrogen 8 mg/dL (9-16); Calcium 10.3 mg/dL (8.4-10.2); Carbon Dioxide 37 mmol/L (22-29); Chloride 92 mmol/L (96-108); Creatinine Clr Calc Pharmacy 59.4; Estimated Glomerular Filt Rate 56; Glucose Random 85 mg/dL (60-115); Sodium 141 mmol/L (135-145)
[2023-08-28 09:45] LABS: Potassium 2.9 mmol/L (3.3-5.1)
--- NOTE | 2023-08-28 09:49 | PC.NURSE ---
Lab called on this date with a critical result for Potassium: 2.9. Provider and charge nurse notified. Patient provided with banana per MD recommendation.
[2023-08-28] MEDS: Potassium Chloride Packet 20 MEQ PACKET 40 MEQ PO (17:44)
--- NOTE | 2023-08-28 18:33 | PM.EVENT ---
Event Note Date of Service: 08/28/23 Event Note: Patient continues to be hypokalemic with labs on 08/27 indicating potassium of 2.9. Will given additional potassium 40 mEq p.o., and increase potassium chloride to 40 mEq p.o. t.i.d.. Patient also continues to have soft BP. Encourage p.o. intake of both fluids and solids. Will continue to monitor. Time Spent With Patient Time: Total time managing care of this patient today ____ minutes.
[2023-08-28 20:02] VITALS: BP 86/57; PULSE 52; RESP 16; TEMP 36.4; O2SAT 98
[2023-08-28] MEDS: Melatonin 3 MG TABLET 6 MG PO (21:55)
[2023-08-28] MEDS: Benztropine Mesylate 0.5 MG TABLET PO (21:55)
[2023-08-28] MEDS: hydrOXYzine HCL 50 MG TABLET PO (21:56)
[2023-08-28] MEDS: traZODone HCL 50 MG TABLET PO (21:56)
[2023-08-28] MEDS: Potassium Chloride ER 20 MEQ TAB.ER.PRT 40 MEQ PO (21:56)
[2023-08-29 08:58] VITALS: BP 84/49; PULSE 66; TEMP 36.6; O2SAT 97
[2023-08-29] MEDS: Potassium Chloride ER 20 MEQ TAB.ER.PRT 40 MEQ PO ×3 (09:00→23:02)
[2023-08-29] MEDS: HaloperidoL 5 MG TABLET PO ×2 (09:00→23:03)
[2023-08-29] MEDS: Folic Acid 1 MG TABLET PO (09:01)
[2023-08-29] MEDS: Multivitamin TABLET 1 TAB PO (09:01)
[2023-08-29] MEDS: Thiamine HCL 100 MG TABLET 50 MG PO (09:01)
[2023-08-29] MEDS: busPIRone HCl 10 MG TABLET PO ×2 (09:01→23:03)
[2023-08-29] MEDS: Naltrexone HCl 50 MG TABLET PO (09:01)
[2023-08-29] MEDS: Escitalopram Oxalate 10 MG TABLET PO (09:01)
[2023-08-29 09:22] LABS: Anion Gap 13 (12-20); Blood Urea Nitrogen 8 mg/dL (9-16); Calcium 9.8 mg/dL (8.4-10.2); Carbon Dioxide 33 mmol/L (22-29); Chloride 96 mmol/L (96-108); Creatinine Clr Calc Pharmacy 58.4; Estimated Glomerular Filt Rate 55; Glucose Random 118 mg/dL (60-115); Potassium 3.2 mmol/L (3.3-5.1); Sodium 139 mmol/L (135-145)
[2023-08-29 10:29] VITALS: BP 86/50
--- NOTE | 2023-08-29 15:52 | P.PNPSI_ITS ---
Subjective Subjective Date of Service: 08/29/23 Reason For Visit: Depression Interim History: Patient says she had one purging episode. She says she ate some breakfast today. Medicine recommended increasing K to 40 meq TID. Repeat K today is 3.2. VS continue to show low BP. Patient reports she runs low. She denies any symptoms of light headedness or dizziness. Denies any pain. She continues on 5 min checks with locked BR. Will repeat K Wednesday and if it is still low, may need to resume 1:1 observation. Discussed importance of staying hydrated; will continue to monitor vitals and labs. Pt denies SI/HI/VH/AH. pt is on wait list for [place] [facility] treatment program. Review of Systems Constitutional: Reports as per HPI and Reports no additional constitutional complaints Eyes: Reports as per HPI Reports as per HPI Cardiovascular: Reports as per HPI Respiratory: Reports as per HPI Gastrointestinal: Reports as per HPI Musculoskeletal: Reports as per HPI Skin/Breast: Reports as per HPI Reports as per HPI Psychiatric: Reports as per HPI Endocrine: Reports as per HPI Hematologic/Lymphatic: Reports as per HPI Allergic/Immunologic: Reports as per HPI Mental Status Exam Mental Status Exam Narrative: Pt is alert and oriented; behavior is irritable; dressed in casual attire; mood is described as depressed and anxious ; eye contact appropriate; Speech is normal rate, volume and prosody and not pressured; thought process is organized and goal directed; Thought content is on tx; otherwise pertinent to relevant topics and without any delusional content, paranoid ideations or grandiosity; denies SI/HI/VH/AH. Patient Appearance: Appropriate Level of Consciousness: Awake and Alert Patient Behavior: Talkative Mood Description: Calm Affect Description: Calm Speech Pattern: Clear Diagnostics Vital Signs (24Hr): Vital Signs - 24 hr 08/28/23 20:02 08/29/23 08:58 08/29/23 10:29 Temperature 97.5 F 97.9 F Pulse Rate 52 66 Respiratory Rate 16 Blood Pressure 86/57 L 84/49 L 86/50 L Pulse Oximetry 98 97 Oxygen Delivery Method Room Air Room Air BMI result Body Mass Index 18.8 Labs 08/29/23 08:57 Labs: Laboratory Results - last 48 hr 08/28/23 08/29/23 08:51 08:57 Hold Purple Top SEE NOTE Sodium 141 139 Potassium 2.9 L* 3.2 L Chloride 92 L 96 Carbon Dioxide 37 H 33 H Anion Gap 15 13 BUN 8 L 8 L Creatinine 1.13 1.15 Estim Creat Clear Calc 59.4 58.4 Estimated GFR 56 55 Random Glucose 85 118 H Calcium 10.3 H 9.8 Medications Medications Current Medications Acetaminophen (Acetaminophen 325 Mg Tablet) 650 mg PO Q6H PRN PRN Reason: Headache/Pain Mild Scale (1-3) Last Admin: 08/28/23 20:36 Dose: 650 mg Al Hydroxide/Mg Hydroxide (Magnesium Hydrox/Alum Hydrox 30 Ml Oral.Susp) 30 ml PO Q6H PRN PRN Reason: Heartburn/Nausea Benztropine Mesylate (Benztropine Mesylate 0.5 Mg Tablet) 0.5 mg PO BEDTIME [facility] Last Admin: 08/28/23 21:55 Dose: 0.5 mg Buspirone HCl (Buspirone Hcl 10 Mg Tablet) 10 mg PO BID [facility] Last Admin: 08/29/23 09:01 Dose: 10 mg Escitalopram Oxalate (Escitalopram Oxalate 10 Mg Tablet) 10 mg PO DAILY [facility] Last Admin: 08/29/23 09:01 Dose: 10 mg Folic Acid (Folic Acid 1 Mg Tablet) 1 mg PO DAILY [facility] Last Admin: 08/29/23 09:01 Dose: 1 mg Haloperidol (Haloperidol 5 Mg Tablet) 5 mg PO BID [facility] Last Admin: 08/29/23 09:00 Dose: 5 mg Hydroxyzine HCl (Hydroxyzine Hcl 50 Mg Tablet) 50 mg PO Q6H PRN PRN Reason: Anxiety Last Admin: 08/28/23 21:56 Dose: 50 mg Loperamide HCl (Loperamide Hcl 2 Mg Capsule) 2 mg PO Q4H PRN PRN Reason: diarrhea Last Admin: 08/23/23 21:12 Dose: 2 mg Magnesium Hydroxide (Milk Of Magnesia 30 Ml Oral.Susp) 30 ml PO DAILY PRN PRN Reason: Constipation Melatonin (Melatonin 3 Mg Tablet) 6 mg PO BEDTIME [facility] Last Admin: 08/28/23 21:55 Dose: 6 mg Multivitamins/Vitamin C (Multivitamin Tablet) 1 tab PO DAILY [facility] Last Admin: 08/29/23 09:01 Dose: 1 tab Naltrexone HCl (Naltrexone Hcl 50 Mg Tablet) 50 mg PO DAILY [facility] Last Admin: 08/29/23 09:01 Dose: 50 mg Ondansetron HCl (Ondansetron Odt 8 Mg Tab.Rapdis) 8 mg TRANSLINGU Q12H PRN PRN Reason: Nausea and Vomiting Potassium Chloride (Potassium Chloride Er 20 Meq Tab.Er.Prt) 40 meq PO TID [facility] Last Admin: 08/29/23 14:55 Dose: 40 meq Thiamine HCl (Thiamine Hcl 100 Mg Tablet) 50 mg PO DAILY [facility] Last Admin: 08/29/23 09:01 Dose: 50 mg Trazodone HCl (Trazodone Hcl 50 Mg Tablet) 50 mg PO BEDTIME MRX1 PRN PRN Reason: Insomnia Last Admin: 08/28/23 21:56 Dose: 50 mg Allergies Allergies Allergy/AdvReac Type Severity Reaction Status Date / Time bee pollen [bee stings] Allergy Anaphylaxis Verified 08/21/23 10:05 Assessment & Plan Assessment & Plan (1) MDD (major depressive disorder), recurrent episode, severe: Status: Acute Code(s): F33.2 - Major depressive disorder, recurrent severe without psychotic features (2) PTSD (post-traumatic stress disorder): Status: Acute Code(s): F43.10 - Post-traumatic stress disorder, unspecified (3) Alcohol use disorder: Status: Acute Code(s): F10.90 - Alcohol use, unspecified, uncomplicated (4) Anorexia nervosa: Status: Acute Code(s): F50.00 - Anorexia nervosa, unspecified Plan Patient is a 32 year old female with hx of MDD, PTSD, alcohol use d/o and anorexia, who was admitted to [facility] diagnosis unit for depression and suicidal ideation on 08/17/23; while there pt had a syncopal episode which she hit her face and head on a counter. Pt was transferred [place] [facility] [place] 08/[place]23 and admitted medically for treatment of hypokalema and SERA d/t anorexia and reduced PO intake. Pt was medically cleared and transferred to for psychiatric treatment on 08/23/23. Plan: CV 5 minute safety checks obtain collateral Monitor labs addiction consult discharge planning Start: Lexapro 10mg PO daily Haldol 5mg PO BID Cogentin 0.5mg PO bedtime Buspar 10mg PO BID 08/24: Keeping to self, isolating in room. Pt reports feeling anxious and depressed today; pt stated, I'm staying in my room because it makes me anxious to be around people. I'm trying to eat more while I'm here but I did vomit twice yesterday . Pt reports having craving to drink alcohol; she reports hx of taking naltrexone and vivitrol; expressed interest in restarting either; pt to be seen by Ivis Castillo NP tomorrow. Critical lab this morning, Potassium 2.9; hospitalist notified and increased Potassium Chloride 20meq PO TID; labs to be redrawn tomorrow. 08/25: Pt continues to report feeling anxious and depressed ; pt stated, I'm feeling the same. I hate being locked up so it makes me sad. I'm willing to go to any eating disorder program in the state . Pt reported purging once yesterday. denies SI/HI/VH/AH. Pt seen by Ivis Castillo NP for addiction consult; started on Naltrexone, please see note. Potassium 3.5 on 08/26/23. Start: folic acid 1mg PO daily multivitamin 1 tab PO daily thiamine 50mg PO daily Zofran 8mg PO Q12HR PRN 08/26: Pt reports feeling anxious and depressed ; Pt reported purging once yesterday; she agreed and signed to behavioral plan of having locked bathroom to prevent vomiting numerous times during the day. Discussed importance of staying hydrated; will continue to monitor vitals and labs.pt denies SI/HI/VH/AH. pt is on wait list for [place] [facility] program. 08/27: If VS and K continue abnormal, may need to increase observation and limit BR access. Medicine consulted and they recommended increase in K supplementation. 08/28: May need to restrict her from BR for up to 1 hour after meals. Otherwise continue current management and treatment plan. Reason for continued inpatient stay Substantial Risk for: harm to self, rapid decompensation and med/psych decompensation Time Spent With Patient Time: Total time managing care of this patient today ____ minutes.
[2023-08-29 20:00] VITALS: BP 82/52; PULSE 71; RESP 16; TEMP 36.4; O2SAT 97
[2023-08-29] MEDS: Acetaminophen 325 MG TABLET 650 MG PO (23:02)
[2023-08-29] MEDS: Benztropine Mesylate 0.5 MG TABLET PO (23:03)
[2023-08-29] MEDS: Melatonin 3 MG TABLET 6 MG PO (23:03)
[2023-08-29] MEDS: hydrOXYzine HCL 50 MG TABLET PO (23:03)
[2023-08-29] MEDS: traZODone HCL 50 MG TABLET PO (23:03)
[2023-08-30 07:40] VITALS: BP 82/43; PULSE 62; RESP 14; TEMP 36.7; O2SAT 98
[2023-08-30] MEDS: HaloperidoL 5 MG TABLET PO ×2 (08:32→22:20)
[2023-08-30] MEDS: Naltrexone HCl 50 MG TABLET PO (08:33)
[2023-08-30] MEDS: Folic Acid 1 MG TABLET PO (08:33)
[2023-08-30] MEDS: Multivitamin TABLET 1 TAB PO (08:33)
[2023-08-30] MEDS: Escitalopram Oxalate 10 MG TABLET PO (08:34)
[2023-08-30] MEDS: Potassium Chloride ER 20 MEQ TAB.ER.PRT 40 MEQ PO ×3 (08:34→22:21)
[2023-08-30] MEDS: busPIRone HCl 10 MG TABLET PO ×2 (08:34→22:21)
[2023-08-30] MEDS: Acetaminophen 325 MG TABLET 650 MG PO (08:35)
[2023-08-30] MEDS: Thiamine HCL 100 MG TABLET 50 MG PO (08:36)
--- NOTE | 2023-08-30 10:47 | P.PNPSI_ITS ---
Subjective Subjective Date of Service: 08/30/23 Reason For Visit: Depression Interim History: Patient says she had one purging episode. She says she ate some breakfast today. Had some dizziness when she sat in bed quickly this morning. No other symptoms. Denies any dizziness or lightheadedness now. Repeat chemistries tomorrow AM. VS continue to show low BP. Patient reports she runs low. She denies any symptoms of light headedness or dizziness. Denies any pain. She continues on 5 min checks with locked BR. Will repeat K Wednesday and if it is still low, may need to resume 1:1 observation. Discussed importance of staying hydrated; will continue to monitor vitals and labs. Pt denies SI/HI/VH/AH. pt is on wait list for [place] [facility] treatment program. Review of Systems Constitutional: Reports as per HPI and Reports no additional constitutional complaints Eyes: Reports as per HPI Reports as per HPI Cardiovascular: Reports as per HPI Respiratory: Reports as per HPI Gastrointestinal: Reports as per HPI Musculoskeletal: Reports as per HPI Skin/Breast: Reports as per HPI Reports as per HPI Psychiatric: Reports as per HPI Endocrine: Reports as per HPI Hematologic/Lymphatic: Reports as per HPI Allergic/Immunologic: Reports as per HPI Mental Status Exam Mental Status Exam Narrative: Pt is alert and oriented; behavior is irritable; dressed in casual attire; mood is described as depressed and anxious ; eye contact appropriate; Speech is normal rate, volume and prosody and not pressured; thought process is organized and goal directed; Thought content is on tx; otherwise pertinent to relevant topics and without any delusional content, paranoid ideations or grandiosity; denies SI/HI/VH/AH. Patient Appearance: Appropriate Level of Consciousness: Awake and Alert Patient Behavior: Talkative Mood Description: Calm Affect Description: Calm Speech Pattern: Clear Diagnostics Vital Signs (24Hr): Vital Signs - 24 hr 08/29/23 20:00 08/30/23 07:40 Temperature 97.6 F 98.0 F Pulse Rate 71 62 Respiratory Rate 16 14 Blood Pressure 82/52 L 82/43 L Pulse Oximetry 97 98 Oxygen Delivery Method Room Air Room Air BMI result Body Mass Index 18.8 Labs 08/29/23 08:57 Labs: Laboratory Results - last 48 hr 08/29/23 08:57 Hold Purple Top SEE NOTE Sodium 139 Potassium 3.2 L Chloride 96 Carbon Dioxide 33 H Anion Gap 13 BUN 8 L Creatinine 1.15 Estim Creat Clear Calc 58.4 Estimated GFR 55 Random Glucose 118 H Calcium 9.8 Medications Medications Current Medications Acetaminophen (Acetaminophen 325 Mg Tablet) 650 mg PO Q6H PRN PRN Reason: Headache/Pain Mild Scale (1-3) Last Admin: 08/30/23 08:35 Dose: 650 mg Al Hydroxide/Mg Hydroxide (Magnesium Hydrox/Alum Hydrox 30 Ml Oral.Susp) 30 ml PO Q6H PRN PRN Reason: Heartburn/Nausea Benztropine Mesylate (Benztropine Mesylate 0.5 Mg Tablet) 0.5 mg PO BEDTIME [facility]PLACED [facility] Last Admin: 08/29/23 23:03 Dose: 0.5 mg Buspirone HCl (Buspirone Hcl 10 Mg Tablet) 10 mg PO BID [facility] Last Admin: 08/30/23 08:34 Dose: 10 mg Escitalopram Oxalate (Escitalopram Oxalate 10 Mg Tablet) 10 mg PO DAILY [facility] Last Admin: 08/30/23 08:34 Dose: 10 mg Folic Acid (Folic Acid 1 Mg Tablet) 1 mg PO DAILY [facility] Last Admin: 08/30/23 08:33 Dose: 1 mg Haloperidol (Haloperidol 5 Mg Tablet) 5 mg PO BID [facility] Last Admin: 08/30/23 08:32 Dose: 5 mg Hydroxyzine HCl (Hydroxyzine Hcl 50 Mg Tablet) 50 mg PO Q6H PRN PRN Reason: Anxiety Last Admin: 08/29/23 23:03 Dose: 50 mg Loperamide HCl (Loperamide Hcl 2 Mg Capsule) 2 mg PO Q4H PRN PRN Reason: diarrhea Last Admin: 08/23/23 21:12 Dose: 2 mg Magnesium Hydroxide (Milk Of Magnesia 30 Ml Oral.Susp) 30 ml PO DAILY PRN PRN Reason: Constipation Melatonin (Melatonin 3 Mg Tablet) 6 mg PO BEDTIME [facility]PL[facility] Last Admin: 08/29/23 23:03 Dose: 6 mg Multivitamins/Vitamin C (Multivitamin Tablet) 1 tab PO DAILY [facility] Last Admin: 08/30/23 08:33 Dose: 1 tab Naltrexone HCl (Naltrexone Hcl 50 Mg Tablet) 50 mg PO DAILY [facility] Last Admin: 08/30/23 08:33 Dose: 50 mg Ondansetron HCl (Ondansetron Odt 8 Mg Tab.Rapdis) 8 mg TRANSLINGU Q12H PRN PRN Reason: Nausea and Vomiting Potassium Chloride (Potassium Chloride Er 20 Meq Tab.Er.Prt) 40 meq PO TID [facility] Last Admin: 08/30/23 08:34 Dose: 40 meq Thiamine HCl (Thiamine Hcl 100 Mg Tablet) 50 mg PO DAILY [facility] Last Admin: 08/30/23 08:36 Dose: 50 mg Trazodone HCl (Trazodone Hcl 50 Mg Tablet) 50 mg PO BEDTIME MRX1 PRN PRN Reason: Insomnia Last Admin: 08/29/23 23:03 Dose: 50 mg Allergies Allergies Allergy/AdvReac Type Severity Reaction Status Date / Time bee pollen [bee stings] Allergy Anaphylaxis Verified 08/21/23 10:05 Assessment & Plan Assessment & Plan (1) MDD (major depressive disorder), recurrent episode, severe: Status: Acute Code(s): F33.2 - Major depressive disorder, recurrent severe without psychotic features (2) PTSD (post-traumatic stress disorder): Status: Acute Code(s): F43.10 - Post-traumatic stress disorder, unspecified (3) Alcohol use disorder: Status: Acute Code(s): F10.90 - Alcohol use, unspecified, uncomplicated (4) Anorexia nervosa: Status: Acute Code(s): F50.00 - Anorexia nervosa, unspecified Plan Patient is a 32 year old female with hx of MDD, PTSD, alcohol use d/o and anorexia, who was admitted to [facility] diagnosis unit for depression and suicidal ideation on 08/17/23; while there pt had a syncopal episode which she hit her face and head on a counter. [place] [facility] [place] and admitted medically for treatment of hypokalema and SERA d/t anorexia and reduced PO intake. Pt was medically cleared and transferred to for psychiatric treatment on 08/23/23. Plan: CV 5 minute safety checks obtain collateral Monitor labs addiction consult discharge planning Start: Lexapro 10mg PO daily Haldol 5mg PO BID Cogentin 0.5mg PO bedtime Buspar 10mg PO BID 08/24: Keeping to self, isolating in room. Pt reports feeling anxious and depressed today; pt stated, I'm staying in my room because it makes me anxious to be around people. I'm trying to eat more while I'm here but I did vomit twice yesterday . Pt reports having craving to drink alcohol; she reports hx of taking naltrexone and vivitrol; expressed interest in restarting either; pt to be seen by Ivis Castillo NP tomorrow. Critical lab this morning, Potassium 2.9; hospitalist notified and increased Potassium Chloride 20meq PO TID; labs to be redrawn tomorrow. 08/25: Pt continues to report feeling anxious and depressed ; pt stated, I'm feeling the same. I hate being locked up so it makes me sad. I'm willing to go to any eating disorder program in the state . Pt reported purging once yesterday. denies SI/HI/VH/AH. Pt seen by Ivis Castillo NP for addiction consult; started on Naltrexone, please see note. Potassium 3.5 on 08/26/23. Start: folic acid 1mg PO daily multivitamin 1 tab PO daily thiamine 50mg PO daily Zofran 8mg PO Q12HR PRN 08/26: Pt reports feeling anxious and depressed ; Pt reported purging once yesterday; she agreed and signed to behavioral plan of having locked bathroom to prevent vomiting numerous times during the day. Discussed importance of staying hydrated; will continue to monitor vitals and labs.pt denies SI/HI/VH/AH. pt is on wait list for [facility] treatment program. 08/27: If VS and K continue abnormal, may need to increase observation and limit BR access. Medicine consulted and they recommended increase in K supplementation. 08/28: May need to restrict her from BR for up to 1 hour after meals. Otherwise continue current management and treatment plan. 08/29: continue current management and treatment plan. Reason for continued inpatient stay Substantial Risk for: harm to self, inability to function, rapid decompensation and med/psych decompensation Time Spent With Patient Time: Total time managing care of this patient today ____ minutes.
[2023-08-30 22:00] VITALS: BP 100/58; PULSE 89; RESP 16; TEMP 36.6; O2SAT 96
[2023-08-30] MEDS: traZODone HCL 50 MG TABLET PO (22:20)
[2023-08-30] MEDS: Melatonin 3 MG TABLET 6 MG PO (22:21)
[2023-08-30] MEDS: Benztropine Mesylate 0.5 MG TABLET PO (22:21)
[2023-08-30] MEDS: hydrOXYzine HCL 50 MG TABLET PO (22:22)
[2023-08-31 07:15] VITALS: BP 68/45; PULSE 77; RESP 16; TEMP 36.5; O2SAT 98
[2023-08-31] MEDS: Potassium Chloride ER 20 MEQ TAB.ER.PRT 40 MEQ PO ×3 (08:49→22:34)
[2023-08-31] MEDS: Naltrexone HCl 50 MG TABLET PO (08:49)
[2023-08-31] MEDS: HaloperidoL 5 MG TABLET PO ×2 (08:49→22:35)
[2023-08-31] MEDS: Escitalopram Oxalate 10 MG TABLET PO (08:50)
[2023-08-31] MEDS: Multivitamin TABLET 1 TAB PO (08:50)
[2023-08-31] MEDS: Folic Acid 1 MG TABLET PO (08:50)
[2023-08-31] MEDS: busPIRone HCl 10 MG TABLET PO ×2 (08:50→22:35)
[2023-08-31] MEDS: Thiamine HCL 100 MG TABLET 50 MG PO (08:50)
[2023-08-31 08:56] LABS: Anion Gap 16 (12-20); Blood Urea Nitrogen 9 mg/dL (9-16); Calcium 9.9 mg/dL (8.4-10.2); Carbon Dioxide 33 mmol/L (22-29); Chloride 96 mmol/L (96-108); Creatinine Clr Calc Pharmacy 58.9; Estimated Glomerular Filt Rate 55; Glucose Random 118 mg/dL (60-115); Potassium 3.5 mmol/L (3.3-5.1); Sodium 141 mmol/L (135-145)
[2023-08-31 09:57] VITALS: BP 82/54; PULSE 54
--- NOTE | 2023-08-31 11:51 | HO.PSYCHPN ---
Subjective Subjective Date of Service: 08/31/23 Reason For Visit: Depression Subjective Notes: Conditional Voluntary Interim History: Pt slept through the night. She is on 5 minutes checks. repeat K is improved 3.5 She denies SI/HI. No VH/AH. She reports she is worried she may not get into eating disorder soon and reports she does not know whether her mother will allow her to stay with her. She has been visible at times. No Behavioral concerns. Review of Systems Constitutional: Reports as per HPI and Reports no additional constitutional complaints Eyes: Reports as per HPI Reports as per HPI Cardiovascular: Reports as per HPI Respiratory: Reports as per HPI Gastrointestinal: Reports as per HPI Musculoskeletal: Reports as per HPI Skin/Breast: Reports as per HPI Reports as per HPI Psychiatric: Reports as per HPI Endocrine: Reports as per HPI Hematologic/Lymphatic: Reports as per HPI Allergic/Immunologic: Reports as per HPI Mental Status Exam Mental Status Exam Narrative: Pt is alert and oriented; behavior is irritable; dressed in casual attire; mood is described as depressed and anxious ; eye contact appropriate; Speech is normal rate, volume and prosody and not pressured; thought process is organized and goal directed; Thought content is on tx; otherwise pertinent to relevant topics and without any delusional content, paranoid ideations or grandiosity; denies SI/HI/VH/AH. Diagnostics Vital Signs (24Hr): Vital Signs - 24 hr 08/30/23 22:00 08/31/23 07:15 08/31/23 09:57 Temperature 97.8 F 97.7 F Pulse Rate 89 77 54 Respiratory Rate 16 16 Blood Pressure 100/58 L 68/45 L 82/54 L Pulse Oximetry 96 98 Oxygen Delivery Method Room Air Room Air BMI result Body Mass Index 18.8 Labs 08/31/23 08:32 Labs: Laboratory Results - last 48 hr 08/31/23 08:32 Sodium 141 Potassium 3.5 Chloride 96 Carbon Dioxide 33 H Anion Gap 16 BUN 9 Creatinine 1.14 Estim Creat Clear Calc 58.9 Estimated GFR 55 Random Glucose 118 H Calcium 9.9 Medications Medications Current Medications Acetaminophen (Acetaminophen 325 Mg Tablet) 650 mg PO Q6H PRN PRN Reason: Headache/Pain Mild Scale (1-3) Last Admin: 08/30/23 08:35 Dose: 650 mg Al Hydroxide/Mg Hydroxide (Magnesium Hydrox/Alum Hydrox 30 Ml Oral.Susp) 30 ml PO Q6H PRN PRN Reason: Heartburn/Nausea Benztropine Mesylate (Benztropine Mesylate 0.5 Mg Tablet) 0.5 mg PO BEDTIME [facility] Last Admin: 08/30/23 22:21 Dose: 0.5 mg Buspirone HCl (Buspirone Hcl 10 Mg Tablet) 10 mg PO BID [facility] Last Admin: 08/31/23 08:50 Dose: 10 mg Escitalopram Oxalate (Escitalopram Oxalate 10 Mg Tablet) 10 mg PO DAILY [facility] Last Admin: 08/31/23 08:50 Dose: 10 mg Folic Acid (Folic Acid 1 Mg Tablet) 1 mg PO DAILY [facility] Last Admin: 08/31/23 08:50 Dose: 1 mg Haloperidol (Haloperidol 5 Mg Tablet) 5 mg PO BID [facility] Last Admin: 08/31/23 08:49 Dose: 5 mg Hydroxyzine HCl (Hydroxyzine Hcl 50 Mg Tablet) 50 mg PO Q6H PRN PRN Reason: Anxiety Last Admin: 08/30/23 22:22 Dose: 50 mg Loperamide HCl (Loperamide Hcl 2 Mg Capsule) 2 mg PO Q4H PRN PRN Reason: diarrhea Last Admin: 08/23/23 21:12 Dose: 2 mg Magnesium Hydroxide (Milk Of Magnesia 30 Ml Oral.Susp) 30 ml PO DAILY PRN PRN Reason: Constipation Melatonin (Melatonin 3 Mg Tablet) 6 mg PO BEDTIME [facility] Last Admin: 08/30/23 22:21 Dose: 6 mg Multivitamins/Vitamin C (Multivitamin Tablet) 1 tab PO DAILY [facility] Last Admin: 08/31/23 08:50 Dose: 1 tab Naltrexone HCl (Naltrexone Hcl 50 Mg Tablet) 50 mg PO DAILY [facility] Last Admin: 08/31/23 08:49 Dose: 50 mg Ondansetron HCl (Ondansetron Odt 8 Mg Tab.Rapdis) 8 mg TRANSLINGU Q12H PRN PRN Reason: Nausea and Vomiting Potassium Chloride (Potassium Chloride Er 20 Meq Tab.Er.Prt) 40 meq PO TID [facility] Last Admin: 08/31/23 08:49 Dose: 40 meq Thiamine HCl (Thiamine Hcl 100 Mg Tablet) 50 mg PO DAILY [facility] Last Admin: 08/31/23 08:50 Dose: 50 mg Trazodone HCl (Trazodone Hcl 50 Mg Tablet) 50 mg PO BEDTIME MRX1 PRN PRN Reason: Insomnia Last Admin: 08/30/23 22:20 Dose: 50 mg Allergies Allergies Allergy/AdvReac Type Severity Reaction Status Date / Time bee pollen [bee stings] Allergy Anaphylaxis Verified 08/21/23 10:05 Assessment & Plan Assessment & Plan (1) MDD (major depressive disorder), recurrent episode, severe: Status: Acute Code(s): F33.2 - Major depressive disorder, recurrent severe without psychotic features (2) PTSD (post-traumatic stress disorder): Status: Acute Code(s): F43.10 - Post-traumatic stress disorder, unspecified (3) Alcohol use disorder: Status: Acute Code(s): F10.90 - Alcohol use, unspecified, uncomplicated (4) Anorexia nervosa: Status: Acute Code(s): F50.00 - Anorexia nervosa, unspecified Plan Patient is a 32 year old female with hx of MDD, PTSD, alcohol use d/o and anorexia, who was admitted to [facility] diagnosis unit for depression and suicidal ideation on 08/17/23; while there pt had a syncopal episode which she hit her face and head on a counter. Pt was transferred to [facility] on 08/21/23 and admitted medically for treatment of hypokalema and SERA d/t anorexia and reduced PO intake. Pt was medically cleared and transferred to for psychiatric treatment on 08/23/23. Plan: CV 5 minute safety checks obtain collateral Monitor labs addiction consult discharge planning Start: Lexapro 10mg PO daily Haldol 5mg PO BID Cogentin 0.5mg PO bedtime Buspar 10mg PO BID 08/24: Keeping to self, isolating in room. Pt reports feeling anxious and depressed today; pt stated, I'm staying in my room because it makes me anxious to be around people. I'm trying to eat more while I'm here but I did vomit twice yesterday . Pt reports having craving to drink alcohol; she reports hx of taking naltrexone and vivitrol; expressed interest in restarting either; pt to be seen by Ivis Castillo NP tomorrow. Critical lab this morning, Potassium 2.9; hospitalist notified and increased Potassium Chloride 20meq PO TID; labs to be redrawn tomorrow. 08/25: Pt continues to report feeling anxious and depressed ; pt stated, I'm feeling the same. I hate being locked up so it makes me sad. I'm willing to go to any eating disorder program in the state . Pt reported purging once yesterday. denies SI/HI/VH/AH. Pt seen by Ivis Castillo NP for addiction consult; started on Naltrexone, please see note. Potassium 3.5 on 08/26/23. Start: folic acid 1mg PO daily multivitamin 1 tab PO daily thiamine 50mg PO daily Zofran 8mg PO Q12HR PRN 08/26: Pt reports feeling anxious and depressed ; Pt reported purging once yesterday; she agreed and signed to behavioral plan of having locked bathroom to prevent vomiting numerous times during the day. Discussed importance of staying hydrated; will continue to monitor vitals and labs.pt denies SI/HI/VH/AH. pt is on wait list for [facility] program. 08/27: If VS and K continue abnormal, may need to increase observation and limit BR access. Medicine consulted and they recommended increase in K supplementation. 08/28: May need to restrict her from BR for up to 1 hour after meals. Otherwise continue current management and treatment plan. 08/29: continue current management and treatment plan. 08/30 continue tx. K+ repeat and 3.5. no med changes. Reason for continued inpatient stay Substantial Risk for: inability to function Time Spent With Patient Time: Total time managing care of this patient today ____ minutes.
[2023-08-31] MEDS: Acetaminophen 325 MG TABLET 650 MG PO ×2 (11:58→22:32)
[2023-08-31 12:00] VITALS: BP 82/52; PULSE 62; RESP 16
[2023-08-31 12:22] VITALS: BP 78/58; PULSE 74; RESP 16
--- NOTE | 2023-08-31 12:47 | PM.EVENT ---
Event Note Date of Service: 08/31/23 Event Note: Follow up on hypokalemia and hypotension. K stable at 3.5. Would continue 40meq TID. Follow lytes Patient continues to be hypotensive, however baseline appears for be SBP 80s and DBP 50s. She is asymptomatic and lucid. Orthostatic VS are negative. At this time, would hold on adding midodrine but may consider in the future if not maintaining pressures. Ultimately goal must be to increase blood volumes with PO intake to maintain blood pressures. Continue to encourage PO intake Recommend checking BP q4h with PEDI cuff and bilaterally and only check MANUALLY. We will continue following. Time Spent With Patient Time: Total time managing care of this patient today ____ minutes.
[2023-08-31 16:00] VITALS: BP 86/54; BP 96/54; PULSE 64; PULSE 68; RESP 16
[2023-08-31 20:00] VITALS: BP 92/58; PULSE 65; RESP 16; TEMP 36.6; O2SAT 99
[2023-08-31] MEDS: traZODone HCL 50 MG TABLET PO (22:32)
[2023-08-31] MEDS: Melatonin 3 MG TABLET 6 MG PO (22:34)
[2023-08-31] MEDS: Benztropine Mesylate 0.5 MG TABLET PO (22:36)
[2023-09-01] VITALS: BP 96/60; PULSE 70; RESP 16; TEMP 36.6; O2SAT 99
[2023-09-01 07:15] VITALS: BP 81/44; PULSE 54; RESP 16; TEMP 36.5; O2SAT 96
[2023-09-01] MEDS: Multivitamin TABLET 1 TAB PO (09:20)
[2023-09-01] MEDS: Escitalopram Oxalate 10 MG TABLET PO (09:20)
[2023-09-01] MEDS: Naltrexone HCl 50 MG TABLET PO (09:20)
[2023-09-01] MEDS: Potassium Chloride ER 20 MEQ TAB.ER.PRT 40 MEQ PO ×3 (09:21→23:24)
[2023-09-01] MEDS: Thiamine HCL 100 MG TABLET 50 MG PO (09:21)
[2023-09-01] MEDS: Folic Acid 1 MG TABLET PO (09:21)
[2023-09-01] MEDS: busPIRone HCl 10 MG TABLET PO ×2 (09:21→23:24)
[2023-09-01] MEDS: HaloperidoL 5 MG TABLET PO ×2 (09:21→23:24)
[2023-09-01] MEDS: Loperamide HCl 2 MG CAPSULE PO (09:27)
[2023-09-01 11:00] VITALS: BP 80/50; PULSE 62
--- NOTE | 2023-09-01 15:26 | HO.PSYCHPN ---
Subjective Subjective Date of Service: 09/01/23 Reason For Visit: Depression Interim History: reports having purged x 1 yesterday, none thus far today. states she typically purges after each meal. c/o grogginess throughout the day, agrees to decrease trazodone dosing to 25 mg QHS. per staff, dep 5 anx 6. withdrawn. taking meds. no SI/HI. no purging. low BPs. slept 7 hours. Mental Status Exam Mental Status Exam Narrative: Pt is alert and oriented; behavior is less irritable; dressed in casual attire; eye contact appropriate; Speech is normal rate, volume and prosody and not pressured; thought process is organized and goal directed; Thought content is on tx; otherwise pertinent to relevant topics and without any delusional content, paranoid ideations or grandiosity; no SI/HI/VH/AH expressed. Diagnostics Vital Signs (24Hr): Vital Signs - 24 hr 08/31/23 16:00 08/31/23 16:00 08/31/23 20:00 Temperature 97.9 F Pulse Rate 68 64 65 Respiratory Rate 16 16 16 Blood Pressure 96/54 L 86/54 L 92/58 L Pulse Oximetry 99 Oxygen Delivery Method Room Air 09/01/23 00:00 09/01/23 07:15 09/01/23 11:00 Temperature 98 F 97.7 F Pulse Rate 70 54 62 Respiratory Rate 16 16 Blood Pressure 96/60 81/44 L 80/50 L Pulse Oximetry 99 96 Oxygen Delivery Method Room Air Room Air BMI result Body Mass Index 18.8 Labs 08/31/23 08:32 Labs: Laboratory Results - last 48 hr 08/31/23 08:32 Sodium 141 Potassium 3.5 Chloride 96 Carbon Dioxide 33 H Anion Gap 16 BUN 9 Creatinine 1.14 Estim Creat Clear Calc 58.9 Estimated GFR 55 Random Glucose 118 H Calcium 9.9 Medications Medications Current Medications Acetaminophen (Acetaminophen 325 Mg Tablet) 650 mg PO Q6H PRN PRN Reason: Headache/Pain Mild Scale (1-3) Last Admin: 08/31/23 22:32 Dose: 650 mg Al Hydroxide/Mg Hydroxide (Magnesium Hydrox/Alum Hydrox 30 Ml Oral.Susp) 30 ml PO Q6H PRN PRN Reason: Heartburn/Nausea Benztropine Mesylate (Benztropine Mesylate 0.5 Mg Tablet) 0.5 mg PO BEDTIME [facility] Last Admin: 08/31/23 22:36 Dose: 0.5 mg Buspirone HCl (Buspirone Hcl 10 Mg Tablet) 10 mg PO BID [facility] Last Admin: 09/01/23 09:21 Dose: 10 mg Escitalopram Oxalate (Escitalopram Oxalate 10 Mg Tablet) 10 mg PO DAILY [facility] Last Admin: 09/01/23 09:20 Dose: 10 mg Folic Acid (Folic Acid 1 Mg Tablet) 1 mg PO DAILY [facility] Last Admin: 09/01/23 09:21 Dose: 1 mg Haloperidol (Haloperidol 5 Mg Tablet) 5 mg PO BID [facility] Last Admin: 09/01/23 09:21 Dose: 5 mg Hydroxyzine HCl (Hydroxyzine Hcl 50 Mg Tablet) 50 mg PO Q6H PRN PRN Reason: Anxiety Last Admin: 08/30/23 22:22 Dose: 50 mg Loperamide HCl (Loperamide Hcl 2 Mg Capsule) 2 mg PO Q4H PRN PRN Reason: diarrhea Last Admin: 09/01/23 09:27 Dose: 2 mg Magnesium Hydroxide (Milk Of Magnesia 30 Ml Oral.Susp) 30 ml PO DAILY PRN PRN Reason: Constipation Melatonin (Melatonin 3 Mg Tablet) 6 mg PO BEDTIME [facility] Last Admin: 08/31/23 22:34 Dose: 6 mg Multivitamins/Vitamin C (Multivitamin Tablet) 1 tab PO DAILY [facility] Last Admin: 09/01/23 09:20 Dose: 1 tab Naltrexone HCl (Naltrexone Hcl 50 Mg Tablet) 50 mg PO DAILY [facility] Last Admin: 09/01/23 09:20 Dose: 50 mg Ondansetron HCl (Ondansetron Odt 8 Mg Tab.Rapdis) 8 mg TRANSLINGU Q12H PRN PRN Reason: Nausea and Vomiting Potassium Chloride (Potassium Chloride Er 20 Meq Tab.Er.Prt) 40 meq PO TID [facility] Last Admin: 09/01/23 14:57 Dose: 40 meq Thiamine HCl (Thiamine Hcl 100 Mg Tablet) 50 mg PO DAILY [facility] Last Admin: 09/01/23 09:21 Dose: 50 mg Trazodone HCl (Trazodone Hcl 25 Mg Halftab) 25 mg PO BEDTIME MRX1 PRN PRN Reason: Insomnia Allergies Allergies Allergy/AdvReac Type Severity Reaction Status Date / Time bee pollen [bee stings] Allergy Anaphylaxis Verified 08/21/23 10:05 Assessment & Plan Assessment & Plan (1) MDD (major depressive disorder), recurrent episode, severe: Status: Acute Code(s): F33.2 - Major depressive disorder, recurrent severe without psychotic features (2) PTSD (post-traumatic stress disorder): Status: Acute Code(s): F43.10 - Post-traumatic stress disorder, unspecified (3) Alcohol use disorder: Status: Acute Code(s): F10.90 - Alcohol use, unspecified, uncomplicated (4) Anorexia nervosa: Status: Acute Code(s): F50.00 - Anorexia nervosa, unspecified Plan Patient is a 32 year old female with hx of MDD, PTSD, alcohol use d/o and anorexia, who was admitted to [facility] diagnosis unit for depression and suicidal ideation on 08/17/23; while there pt had a syncopal episode which she hit her face and head on a counter. Pt was transferred to [facility] ER on 08/21/23 and admitted medically for treatment of hypokalema and SERA d/t anorexia and reduced PO intake. Pt was medically cleared and transferred to for psychiatric treatment on 08/23/23. Plan: CV 5 minute safety checks obtain collateral Monitor labs addiction consult discharge planning Start: Lexapro 10mg PO daily Haldol 5mg PO BID Cogentin 0.5mg PO bedtime Buspar 10mg PO BID 08/24: Keeping to self, isolating in room. Pt reports feeling anxious and depressed today; pt stated, I'm staying in my room because it makes me anxious to be around people. I'm trying to eat more while I'm here but I did vomit twice yesterday . Pt reports having craving to drink alcohol; she reports hx of taking naltrexone and vivitrol; expressed interest in restarting either; pt to be seen by Ivis Castillo NP tomorrow. Critical lab this morning, Potassium 2.9; hospitalist notified and increased Potassium Chloride 20meq PO TID; labs to be redrawn tomorrow. 08/25: Pt continues to report feeling anxious and depressed ; pt stated, I'm feeling the same. I hate being locked up so it makes me sad. I'm willing to go to any eating disorder program in the state . Pt reported purging once yesterday. denies SI/HI/VH/AH. Pt seen by Ivis Castillo NP for addiction consult; started on Naltrexone, please see note. Potassium 3.5 on 08/26/23. Start: folic acid 1mg PO daily multivitamin 1 tab PO daily thiamine 50mg PO daily Zofran 8mg PO Q12HR PRN 08/26: Pt reports feeling anxious and depressed ; Pt reported purging once yesterday; she agreed and signed to behavioral plan of having locked bathroom to prevent vomiting numerous times during the day. Discussed importance of staying hydrated; will continue to monitor vitals and labs.pt denies SI/HI/VH/AH. pt is on wait list for [place] [facility] program. 08/27: If VS and K continue abnormal, may need to increase observation and limit BR access. Medicine consulted and they recommended increase in K supplementation. 08/28: May need to restrict her from BR for up to 1 hour after meals. Otherwise continue current management and treatment plan. 08/29: continue current management and treatment plan. 08/30 continue tx. K+ repeat and 3.5. no med changes. 08/31: decrease trazodone to 25 mg QHS for daytime grogginess. otherwise continue current mgmt. planning for wednesday DC to mom's house to await [place] bed. Reason for continued inpatient stay Substantial Risk for: harm to self and med/psych decompensation Time Spent With Patient Time: Total time managing care of this patient today _25___ minutes.
[2023-09-01 20:00] VITALS: BP 88/60; PULSE 60
[2023-09-01] MEDS: hydrOXYzine HCL 50 MG TABLET PO (20:41)
[2023-09-01] MEDS: Melatonin 3 MG TABLET 6 MG PO (23:24)
[2023-09-01] MEDS: traZODone HCL 25 MG HALFTAB PO (23:24)
[2023-09-01] MEDS: Benztropine Mesylate 0.5 MG TABLET PO (23:24)
[2023-09-02 08:00] VITALS: BP 90/56; PULSE 68; RESP 18; TEMP 36.5; O2SAT 98
[2023-09-02] MEDS: Escitalopram Oxalate 10 MG TABLET PO (09:05)
[2023-09-02] MEDS: HaloperidoL 5 MG TABLET PO ×2 (09:05→22:00)
[2023-09-02] MEDS: busPIRone HCl 10 MG TABLET PO ×2 (09:05→22:01)
[2023-09-02] MEDS: Folic Acid 1 MG TABLET PO (09:05)
[2023-09-02] MEDS: Naltrexone HCl 50 MG TABLET PO (09:05)
[2023-09-02] MEDS: Thiamine HCL 100 MG TABLET 50 MG PO (09:06)
[2023-09-02] MEDS: Potassium Chloride ER 20 MEQ TAB.ER.PRT 40 MEQ PO ×3 (09:06→21:59)
[2023-09-02] MEDS: Multivitamin TABLET 1 TAB PO (09:06)
--- NOTE | 2023-09-02 09:12 | P.PNPSI_ITS ---
Subjective Subjective Date of Service: 09/02/23 Reason For Visit: Depression Subjective Notes: Conditional Voluntary Interim History: Reviewed with Dr. Dai. Pt reports feeling good today; pt stated, I'm feeling ready to go home . Pt reports she plans on following up with her outpatient providers. She denies purging so far today; reported purging once yesterday. Pt denies SI/HI/VH/AH. Medication Compliance: Yes Side effects from medications: No Review of Systems Constitutional: Reports as per HPI Eyes: Reports as per HPI Reports as per HPI Cardiovascular: Reports as per HPI Respiratory: Reports as per HPI Gastrointestinal: Reports as per HPI Genitourinary: Reports as per HPI Musculoskeletal: Reports as per HPI Skin/Breast: Reports as per HPI Reports as per HPI Psychiatric: Reports as per HPI Endocrine: Reports as per HPI Hematologic/Lymphatic: Reports as per HPI Allergic/Immunologic: Reports as per HPI Mental Status Exam Mental Status Exam Narrative: Pt is alert and oriented; behavior is cooperative and calm; dressed in casual attire; mood is described as good ; eye contact appropriate; Speech is normal rate, volume and prosody and not pressured; thought process is organized and goal directed; Thought content is on tx; denies SI/HI/VH/AH. Diagnostics Vital Signs (24Hr): Vital Signs - 24 hr 09/01/23 11:00 09/01/23 20:00 09/02/23 08:00 Temperature 97.7 F Pulse Rate 62 60 68 Respiratory Rate 18 Blood Pressure 80/50 L 88/60 L 90/56 L Pulse Oximetry 98 Oxygen Delivery Method Room Air BMI result Body Mass Index 18.8 Labs 09/02/23 10:19 Medications Medications Current Medications Acetaminophen (Acetaminophen 325 Mg Tablet) 650 mg PO Q6H PRN PRN Reason: Headache/Pain Mild Scale (1-3) Last Admin: 08/31/23 22:32 Dose: 650 mg Al Hydroxide/Mg Hydroxide (Magnesium Hydrox/Alum Hydrox 30 Ml Oral.Susp) 30 ml PO Q6H PRN PRN Reason: Heartburn/Nausea Benztropine Mesylate (Benztropine Mesylate 0.5 Mg Tablet) 0.5 mg PO BEDTIME [facility] Last Admin: 09/01/23 23:24 Dose: 0.5 mg Buspirone HCl (Buspirone Hcl 10 Mg Tablet) 10 mg PO BID [facility] Last Admin: 09/02/23 09:05 Dose: 10 mg Escitalopram Oxalate (Escitalopram Oxalate 10 Mg Tablet) 10 mg PO DAILY [facility] Last Admin: 09/02/23 09:05 Dose: 10 mg Folic Acid (Folic Acid 1 Mg Tablet) 1 mg PO DAILY [facility] Last Admin: 09/02/23 09:05 Dose: 1 mg Haloperidol (Haloperidol 5 Mg Tablet) 5 mg PO BID [facility] Last Admin: 09/02/23 09:05 Dose: 5 mg Hydroxyzine HCl (Hydroxyzine Hcl 50 Mg Tablet) 50 mg PO Q6H PRN PRN Reason: Anxiety Last Admin: 09/01/23 20:41 Dose: 50 mg Loperamide HCl (Loperamide Hcl 2 Mg Capsule) 2 mg PO Q4H PRN PRN Reason: diarrhea Last Admin: 09/01/23 09:27 Dose: 2 mg Magnesium Hydroxide (Milk Of Magnesia 30 Ml Oral.Susp) 30 ml PO DAILY PRN PRN Reason: Constipation Melatonin (Melatonin 3 Mg Tablet) 6 mg PO BEDTIME [facility] Last Admin: 09/01/23 23:24 Dose: 6 mg Multivitamins/Vitamin C (Multivitamin Tablet) 1 tab PO DAILY [facility] Last Admin: 09/02/23 09:06 Dose: 1 tab Naltrexone HCl (Naltrexone Hcl 50 Mg Tablet) 50 mg PO DAILY [facility] Last Admin: 09/02/23 09:05 Dose: 50 mg Ondansetron HCl (Ondansetron Odt 8 Mg Tab.Rapdis) 8 mg TRANSLINGU Q12H PRN PRN Reason: Nausea and Vomiting Potassium Chloride (Potassium Chloride Er 20 Meq Tab.Er.Prt) 40 meq PO TID [facility] Last Admin: 09/02/23 09:06 Dose: 40 meq Thiamine HCl (Thiamine Hcl 100 Mg Tablet) 50 mg PO DAILY [facility] Last Admin: 09/02/23 09:06 Dose: 50 mg Trazodone HCl (Trazodone Hcl 25 Mg Halftab) 25 mg PO BEDTIME MRX1 PRN PRN Reason: Insomnia Last Admin: 09/01/23 23:24 Dose: 25 mg Allergies Allergies Allergy/AdvReac Type Severity Reaction Status Date / Time bee pollen [bee stings] Allergy Anaphylaxis Verified 08/21/23 10:05 Assessment & Plan Assessment & Plan (1) MDD (major depressive disorder), recurrent episode, severe: Status: Acute Code(s): F33.2 - Major depressive disorder, recurrent severe without psychotic features (2) PTSD (post-traumatic stress disorder): Status: Acute Code(s): F43.10 - Post-traumatic stress disorder, unspecified (3) Alcohol use disorder: Status: Acute Code(s): F10.90 - Alcohol use, unspecified, uncomplicated (4) Anorexia nervosa: Status: Acute Code(s): F50.00 - Anorexia nervosa, unspecified Plan Patient is a 32 year old female with hx of MDD, PTSD, alcohol use d/o and anorexia, who was admitted to [facility] diagnosis unit for depression and suicidal ideation on 08/17/23; while there pt had a syncopal episode which she hit her face and head on a counter. Pt was transferred to [facility] on 08/21/23 and admitted medically for treatment of hypokalema and SERA d/t anorexia and reduced PO intake. Pt was medically cleared and transferred to for psychiatric treatment on 08/23/23. Plan: CV 5 minute safety checks obtain collateral Monitor labs addiction consult discharge planning Start: Lexapro 10mg PO daily Haldol 5mg PO BID Cogentin 0.5mg PO bedtime Buspar 10mg PO BID 08/24: Keeping to self, isolating in room. Pt reports feeling anxious and depressed today; pt stated, I'm staying in my room because it makes me anxious to be around people. I'm trying to eat more while I'm here but I did vomit twice yesterday . Pt reports having craving to drink alcohol; she reports hx of taking naltrexone and vivitrol; expressed interest in restarting either; pt to be seen by Ivis Castillo NP tomorrow. Critical lab this morning, Potassium 2.9; hospitalist notified and increased Potassium Chloride 20meq PO TID; labs to be redrawn tomorrow. 08/25: Pt continues to report feeling anxious and depressed ; pt stated, I'm feeling the same. I hate being locked up so it makes me sad. I'm willing to go to any eating disorder program in the state . Pt reported purging once yesterday. denies SI/HI/VH/AH. Pt seen by Ivis Castillo NP for addiction consult; started on Naltrexone, please see note. Potassium 3.5 on 08/26/23. Start: folic acid 1mg PO daily multivitamin 1 tab PO daily thiamine 50mg PO daily Zofran 8mg PO Q12HR PRN 08/26: Pt reports feeling anxious and depressed ; Pt reported purging once yesterday; she agreed and signed to behavioral plan of having locked bathroom to prevent vomiting numerous times during the day. Discussed importance of staying hydrated; will continue to monitor vitals and labs.pt denies SI/HI/VH/AH. pt is on wait list for [facility] treatment program. 08/27: If VS and K continue abnormal, may need to increase observation and limit BR access. Medicine consulted and they recommended increase in K supplementation. 08/28: May need to restrict her from BR for up to 1 hour after meals. Otherwise continue current management and treatment plan. 08/29: continue current management and treatment plan. 08/30 continue tx. K+ repeat and 3.5. no med changes. 08/31: decrease trazodone to 25 mg QHS for daytime grogginess. otherwise continue current mgmt. planning for wednesday DC to mom's house to await [facility] bed. 09/01: Pt reports feeling good today; pt stated, I'm feeling ready to go home . Pt reports she plans on following up with her outpatient providers. She denies purging so far today; reported purging once yesterday. Pt denies SI/HI/VH/AH. Patient educated on: diagnosis, medication risk/benefits and therapeutic strategies Informed Consent: understands Reason for continued inpatient stay Substantial Risk for: stable for discharge Time Spent With Patient Time: Total time managing care of this patient today _20___ minutes.
[2023-09-02 10:20] VITALS: BMI 19.2
[2023-09-02 11:12] LABS: Anion Gap 18 (12-20); Blood Urea Nitrogen 7 mg/dL (9-16); Calcium 9.5 mg/dL (8.4-10.2); Carbon Dioxide 28 mmol/L (22-29); Chloride 100 mmol/L (96-108); Creatinine Clr Calc Pharmacy 59.2; Estimated Glomerular Filt Rate 54; Glucose Random 92 mg/dL (60-115); Potassium 3.6 mmol/L (3.3-5.1); Sodium 142 mmol/L (135-145)
--- NOTE | 2023-09-02 11:14 | PM.EVENT ---
Event Note Date of Service: 09/02/23 Event Note: Follow up on hypokalemia and hypotension. K stable at 3.6. Would continue 40meq TID. Follow lytes Patient continues to be borderline/hypotensive, however baseline appears for be SBP 80s/90s and DBP 50s. Overall, MAPS >60. She is asymptomatic and lucid. Orthostatic VS negative. At this time, would hold on adding midodrine but may consider in the future if not maintaining pressures. Ultimately goal must be to increase blood volumes with PO intake to maintain blood pressures. Continue to encourage PO intake Blood pressures should be chcked with pedi cuff, manually, and on bilateral arms. Will sign off at this time, but please do not hesitate to reach out for any questions, concerns, or acute medical issues. Time Spent With Patient Time: Total time managing care of this patient today ____ minutes.
[2023-09-02 13:00] VITALS: BP 78/46; PULSE 66; RESP 16
[2023-09-02] MEDS: hydrOXYzine HCL 50 MG TABLET PO (19:32)
[2023-09-02 19:40] VITALS: BP 102/55; PULSE 61; RESP 16; TEMP 36.5; O2SAT 99
[2023-09-02] MEDS: traZODone HCL 25 MG HALFTAB PO (22:00)
[2023-09-02] MEDS: Melatonin 3 MG TABLET 6 MG PO (22:00)
[2023-09-02] MEDS: Benztropine Mesylate 0.5 MG TABLET PO (22:01)
[2023-09-03] VITALS: RESP 16
[2023-09-03 03:48] VITALS: RESP 18
[2023-09-03 08:00] VITALS: BP 88/46; PULSE 56; RESP 14; TEMP 36.6; O2SAT 98
--- NOTE | 2023-09-03 08:53 | P.DS_ITS ---
DS: Providers Provider Date of Service: 09/03/23 Date of admission: 08/23/23 16:19 Date of discharge: 09/03/23 Primary care physician: Unknown Physician Admitting clinician: Parvin Siu Attending physician on admission: Edvin Dai Consults: 08/24/23 14:45 Consult to Hospitalist Routine Comment: Consulting Provider: Hospitalist Reason For Exam: low potassium 08/24/23 16:16 Addiction Medicine Routine Consulting Provider: Addiction Covering Reason for consultation: heavy alcohol use;?vivitrol,?naltrexone Attending physician on discharge: Edvin Dai Discharging clinician: Parvin Siu DS: Diagnosis Discharge Diagnosis (1) MDD (major depressive disorder), recurrent episode, severe: Status: Acute (2) PTSD (post-traumatic stress disorder): Status: Acute (3) Alcohol use disorder: Status: Acute (4) Anorexia nervosa: Status: Acute DS: Medications Discharge Medications Home Medications: Home Medications ?Medication ?Instructions ?Recorded ?Confirmed docusate sodium 100 mg capsule 100 mg PO BID PRN Constipation 08/21/23 08/23/23 Previous Rx's ?Medication ?Instructions ?Recorded benztropine 0.5 mg tablet 0.5 mg PO BEDTIME 30 days #30 tabs 09/02/23 buspirone 10 mg tablet 10 mg PO BID 30 days #60 tabs 09/02/23 escitalopram oxalate 10 mg tablet 10 mg PO DAILY 30 days #30 tabs 09/02/23 haloperidol 5 mg tablet 5 mg PO BID 30 days #60 tabs 09/02/23 melatonin 3 mg tablet 6 mg (2 x 3 mg) PO BEDTIME 30 days 09/02/23 #60 tabs naltrexone 50 mg tablet 50 mg PO DAILY 30 days #30 tabs 09/02/23 potassium chloride 20 mEq 40 meq (2 x 20 mEq) PO TID 7 days 09/02/23 tablet,extended release(part/cryst) #42 tabs Mental Status Exam Mental Status Exam Narrative: Pt is alert and oriented; behavior is cooperative and calm; dressed in casual attire; mood is described as good ; eye contact appropriate; Speech is normal rate, volume and prosody and not pressured; thought process is organized and goal directed; Thought content is on tx; denies SI/HI/VH/AH. Data Data Completed and Pending Completed studies during hospitalization [Text1]: 08/28/23 08/29/23 08/31/23 08:51 08:57 08:32 Hold Purple Top SEE NOTE Sodium 141 139 141 Potassium 2.9 L* 3.2 L 3.5 Chloride 92 L 96 96 Carbon Dioxide 37 H 33 H 33 H Anion Gap 15 13 16 BUN 8 L 8 L 9 Creatinine 1.13 1.15 1.14 Estim Creat Clear Calc 59.4 58.4 58.9 Estimated GFR 56 55 55 Random Glucose 85 118 H 118 H Calcium 10.3 H 9.8 9.9 09/02/23 10:19 Hold Purple Top Sodium 142 Potassium 3.6 Chloride 100 Carbon Dioxide 28 Anion Gap 18 BUN 7 L Creatinine 1.16 Estim Creat Clear Calc 59.2 Estimated GFR 54 Random Glucose 92 Calcium 9.5 DS: Summary Hospital Course Hospital Course: Patient is a 32 year old female with hx of MDD, PTSD, alcohol use d/o and anorexia, who was admitted to [facility] diagnosis unit for depression and suicidal ideation on 08/17/23; while there pt had a syncopal episode which she hit her face and head on a counter. Pt was transferred to [facility] ER on 08/21/23 and admitted medically for treatment of hypokalema and SERA d/t anorexia and reduced PO intake. Pt was medically cleared and transferred to [facility] for psychiatric treatment on 08/23/23. Per crisis report, pt has hx of depression and daily chronic alcohol use. Per patient's mother, she believes pt's eating disorder is the root of the issue. She reports, pt purges multiple times a day, which makes the medications she is taking not effective as a result. During admission assessment, pt presents alert and oriented, calm, cooperative but guarded. Pt stated, I went to detox, then [facility] then here because my electrolytes were low. I'm depressed and anxious. I've been drinking heavily since high school and now I drink about 12-18 nips a day. I've had a 1 1/2 sobriety in the past. Pt reports she usually doesnt come to [facility] hospitals and just go to detox for help . Pt reports she has a hard time remembering the treatments I've had but you guys can talk to my mom . Pt reports she drinks heavily to help her relax and sleep with my anxiety . Pt stated, I've been drinking for so long, I don't really know what my mood is like . pt denies SI/HI/VH/AH. Pt stated, I just want to get on my meds and go to the next place. I'm on a waiting list to go to [facility] for my eating disorder . Pt reports having an outpatient therapist but currently does not have an outpatient psychaitrist and is interested in a referral. Pt gave T/W verbal consent to speak with mother; pt's mother stated, I don't know what medications she has taken in the past or the treatments she has received because she never let me speak to anyone when she was in treatment . Per her prescription monitoring hx; psychiatric scripts have not been filled since 03/2023. During hospital course, CV 5 minute safety checks obtain collateral Monitor labs addiction consult discharge planning Start: Lexapro 10mg PO daily Haldol 5mg PO BID Cogentin 0.5mg PO bedtime Buspar 10mg PO BID Keeping to self, isolating in room. Pt reports feeling anxious and depressed today; pt stated, I'm staying in my room because it makes me anxious to be around people. I'm trying to eat more while I'm here but I did vomit twice yesterday . Pt reports having craving to drink alcohol; she reports hx of taking naltrexone and vivitrol; expressed interest in restarting either; pt to be seen by Ivis Castillo NP tomorrow. Critical lab this morning, Potassium 2.9; hospitalist notified and increased Potassium Chloride 20meq PO TID; labs to be redrawn tomorrow. Pt continues to report feeling anxious and depressed ; pt stated, I'm feeling the same. I hate being locked up so it makes me sad. I'm willing to go to any eating disorder program in the state . Pt reported purging once yesterday. denies SI/HI/VH/AH. Pt seen by Ivis Castillo NP for addiction consult; started on Naltrexone, please see note. Potassium 3.5 on 08/26/23. Start: folic acid 1mg PO daily multivitamin 1 tab PO daily thiamine 50mg PO daily Zofran 8mg PO Q12HR PRN Pt reports feeling anxious and depressed ; Pt reported purging once yesterday; she agreed and signed to behavioral plan of having locked bathroom to prevent vomiting numerous times during the day. Discussed importance of staying hydrated; will continue to monitor vitals and labs.pt denies SI/HI/VH/AH. pt is on wait list for [facility] treatment program. If VS and K continue abnormal, may need to increase observation and limit BR access. Medicine consulted and they recommended increase in K supplementation. May need to restrict her from BR for up to 1 hour after meals. Otherwise continue current management and treatment plan. continue tx. K+ repeat and 3.5. no med changes. decrease trazodone to 25 mg QHS for daytime grogginess. otherwise continue current mgmt. planning for wednesday DC to mom's house to await [place] bed. Pt reports feeling good today; pt stated, I'm feeling ready to go home . Pt reports she plans on following up with her outpatient providers. She denies purging so far today; reported purging once yesterday. Pt reports she has no desire to drink since I haven't in a month ; I'm not worried about it because I don't have money and I have the Naltrexone . Pt denies SI/HI/VH/AH. Educated regarding importance of following up with outpatient providers to monitor labs; pt expressed understanding and stated she plans on following up with her outpatient providers. Time spent discussing smoking cessation with patient: 3 to 10 minutes Status at Discharge Cognitive/behavioral status at discharge: Patient was interviewed prior to discharge and found to be fully oriented and without SI or HI. Patient has insight and demonstrates good judgment in terms of wanting to pursue treatment. Patient has a safety plan that includes presenting to the closest ER or calling 911 if feeling unsafe. Functional status at discharge: independent ambulation Overall status at discharge: patient is back to baseline Time Spent with Patient Time attestation: Total time managing care of this patient today _20___ minutes. Time spent: Less than 30 minutes Discharge Plan Discharge Anticipated Discharge Date/Time: 09/03/23 10:00 Patient Disposition: Home, Self-Care Discharge Diagnosis: MDD, PTSD, Alcohol use d/o, Anorexia nervosa Referrals: Meño Aquino (Therapy) [Other] - 09/10/23 10:00 am (TELEHEALTH APPOINTMENT) Janee Olivia (Psychiatry) [Other] - 09/10/23 11:30 am (IN OFFICE APPOINTMENT) [facility] [Other] - 1 Week (*Please follow up with the admissions counselors at [facility] regarding the waiting list. ) Steve Sloan MD [Physician] - 09/13/23 3:30 pm Discharge Medications: New naltrexone 50 mg Tablet 50 mg PO DAILY 30 Days Qty: 30 0RF haloperidol 5 mg Tablet 5 mg PO BID 30 Days Qty: 60 0RF escitalopram oxalate 10 mg Tablet 10 mg PO DAILY 30 Days Qty: 30 0RF buspirone 10 mg Tablet 10 mg PO BID 30 Days Qty: 60 0RF benztropine 0.5 mg Tablet 0.5 mg PO BEDTIME 30 Days Qty: 30 0RF potassium chloride 20 mEq Tablet,Er Particles/Crystals 40 meq PO TID 7 Days Qty: 42 0RF Continued docusate sodium 100 mg Capsule 100 mg PO BID PRN (Reason: Constipation) Changed melatonin 3 mg Tablet 6 mg PO BEDTIME 30 Days Qty: 60 0RF Discontinued acetaminophen [Tylenol] 325 mg Tablet 650 mg PO Q4H PRN (Reason: Fever Or Pain) Rx Instructions: NTE 3 G /24 DAYS Discharge Orders: Discharge Order (Routine); Ordered 09/03/23 Ordered By: Parvin Siu Diet: Regular diet Activity on Discharge: As tolerated Stand Alone Forms: Patient Portal Discharge page, Community Support Print Language: Tuvaluan Care Plan Goals: Maintain mood and safe behaviors Take medications as prescribed Continue to pursue sobriety Practice coping skills Continue with outpatient providers and reach out to them as needed Health Concerns: Mood stability and behaviors Sobriety Monitor labs with outpatient providers. Obtain blood work from outpatient provider to monitor Potassium level within 1 week. Plan of Treatment: Follow up with your PCP, psychiatric provider and other outpatient providers regarding above concerns Take medications as prescribed Assessment: Patient was interviewed prior to discharge and found to be fully oriented and without SI or HI. Patient has insight and demonstrates good judgment in terms of wanting to pursue treatment. Patient has a safety plan that includes presenting to the closest ER or calling 911 if feeling unsafe. Discharge Date/Time: 09/03/23 10:20
[2023-09-03] MEDS: Escitalopram Oxalate 10 MG TABLET PO (09:13)
[2023-09-03] MEDS: Folic Acid 1 MG TABLET PO (09:13)
[2023-09-03] MEDS: Multivitamin TABLET 1 TAB PO (09:13)
[2023-09-03] MEDS: busPIRone HCl 10 MG TABLET PO (09:13)
[2023-09-03] MEDS: Potassium Chloride ER 20 MEQ TAB.ER.PRT 40 MEQ PO (09:13)
[2023-09-03] MEDS: Naltrexone HCl 50 MG TABLET PO (09:14)
[2023-09-03] MEDS: Thiamine HCL 100 MG TABLET 50 MG PO (09:14)
[2023-09-03] MEDS: HaloperidoL 5 MG TABLET PO (09:14)
[2023-09-03] MEDS: hydrOXYzine HCL 50 MG TABLET PO (09:17)
== END 2023-09-03 10:20 | disposition home or self-care (01) | DRG 751 ==
PROVIDERS: Internal Medicine; Physician Assistant; Psychiatry & Neurology Psychiatry; Admitting Provider Social Worker; Responsible Provider Registered Nurse; Visit Provider Psychiatry & Neurology Psychiatry
DX: F33.2 Major depressive disorder, recurrent severe without psychotic features (principal); F50.00 Anorexia nervosa, unspecified; I95.9 Hypotension, unspecified; F43.10 Post-traumatic stress disorder, unspecified; Z87.891 Personal history of nicotine dependence; Z68.1 Body mass index [BMI] 19.9 or less, adult; Z79.899 Other long term (current) drug therapy
CPT/HCPCS: 36415; 80048; 80053; 80061; 80076; 82607; 83036; 83735; 84443; 93005

== ENCOUNTER → 2023-08-23 16:19 | Outpatient (BNV) | payer OTHER, SELFPAY | PROVIDERS: Admitting Provider Social Worker; Responsible Provider Registered Nurse; Visit Provider Registered Nurse | DX: F50.00 Anorexia nervosa, unspecified (principal); F33.2 Major depressive disorder, recurrent severe without psychotic features; F43.11 Post-traumatic stress disorder, acute; F10.90 Alcohol use, unspecified, uncomplicated | CPT/HCPCS: 90792; 99231; 99232; 99238; 99499 ==